=== PATIENT | male | born 1935 | race Caucasian/White ===

== ENCOUNTER 2017-07-06 14:39 | Inpatient (IN) | payer MEDICARE ==
[2017-07-06] MEDS ORDERED: Sodium Chloride 0.9% 2.5 ML Syringe FLUSH PRN (14:48)
[2017-07-06] MEDS ORDERED: Sodium Chloride 0.9% 10 ML Syringe FLUSH PRN (14:48)
--- NOTE | 2017-07-06 14:52 | EDM.PDOC ---
ED HPI GENERAL MEDICAL PROBLEM - General Chief Complaint: Neuro Symptoms/Deficits Stated Complaint: NUMBNESS AND SLURRING WORDS Time Seen by Provider: 07/06/17 14:45 - History of Present Illness INITIAL COMMENTS - FREE TEXT/NARRATIVE: HISTORY AND PHYSICAL: History of present illness: Patient is an 82-year-old male who follows with Dr. Coughlin in our family practice clinic and has a history of hypertension, hypercholesterolemia and gout who presents for evaluation for an episode of slurred speech that occurred this morning. According to the daughter at bedside. He had cataract surgery about 2 weeks ago and has been doing well from that and just recently returned about 2 months ago from [place]. According to her history the patient told her that last evening he had an episode by himself of his vision was very blurred and then got blacked and then he thought he passed out for about 30 minutes. He did not call anybody and went to bed and slept the whole night. ( the patient told nursing that he thinks that his slurred speech started last evening with this event). This morning he awoke and the daughter spoke with him at 8:45 AM and thought that his speech was slurred. According to her, he never told her that his speech was slurred. Last evening. The patient concurs that he is a smoker and he went to smoke and he was unable to take a puff on the cigarette because he felt like he could not get his mouth to function properly. The time of onset of the slurring of the speech is unknown. By the time the daughter got to the patient at 10:30 AM all of his symptoms had resolved and his speech was intact. The only thing he has persistently complained of is some dizziness. He did not fall with his events of last evening and he does not feel like he is going to fall now. He did not have a headache, neck pain, chest pain or shortness of breath, no abdominal pain, nausea or vomiting. The daughter says that she brought him because she went on the Internet and started reading about TIAs and she thought that he should come for evaluation. She says that the symptoms have not returned. Throughout the time. She has spent with him from 10: 30 AM until now. The patient says that laying in the bed. He does not feel particularly dizzy. Please note that according to the clinic note from June 16 of this year. The patient has a history of coronary artery disease and stroke with his last stroke in 2010. He has dyslipidemia and hypertension and also has a history of gout. He had carotid artery stenosis and on that visit, they renewed medications and ordered blood work to be performed. According to Dr. Coughlin's notes. He uses a walker or wheelchair due to residual effects from his stroke in 2010 and he has partial left leg paralysis. Patient is still a smoker. Please also note that the patient is telling the nurse that he still has some blurriness of vision but did not state that me Review of systems: As per history of present illness and below otherwise all systems reviewed and negative. Past medical history: As per history of present illness and as reviewed below otherwise noncontributory. Surgical history: As per history of present illness and as reviewed below otherwise noncontributory. Social history: No reported history of drug or alcohol abuse. Family history: As per history of present illness and as reviewed below otherwise noncontributory. Physical exam: General: Well-developed, well-nourished man who is nontoxic, smiling and speaking in the ED and interactive. Vital signs are noted by me HEENT: Atraumatic, normocephalic, pupils reactive, negative for conjunctival pallor or scleral icterus, mucous membranes moist, throat clear, neck supple, nontender, trachea midline. Lungs: Clear to auscultation, breath sounds equal bilaterally, chest nontender. Heart: S1S2, regular rate but slightly irregular rhythm on my evaluation, negative for clicks, rubs, or JVD. Abdomen: Soft, nondistended, nontender. Negative for masses or hepatosplenomegaly. Negative for costovertebral tenderness. Pelvis: Stable nontender. Genitourinary: Deferred. Rectal: Deferred. Extremities: Atraumatic, negative for cords or calf pain. Neurovascular unremarkable. Pedal edema Neuro: Awake, alert, oriented. Cranial nerves II through XII unremarkable. Burner Operator and dorsiflexion/plantar flexion is 5/5. The great toe. Tone is normal throughout Motor and sensory unremarkable throughout. Exam nonfocal. Skin: There is no evidence of any rashes or lesions seen. Overtly, normal turgor and no diaphoresis Diagnostics: EKG x 2, CBC CMP INR troponin TSH UA, chest x-ray CT scan of the head NIHSS Therapeutics: IV O2 monitor, aspirin NIHSS=1 and he scored this for ataxia of his left upper extremity. The patient does tell me that he has to use a walker or wheelchair due to his prior stroke but the ataxia may be new. CT scan was discussed by Dr. Mack with me. Patient is currently very stable in the ED. EKG was reviewed by Dr. aguilar instructional systems specialist and he confirms that this is A. fib. I did not do a formal consult to him. According to the clinic notes from Dr. Coughlin. The patient does not have any history of A. fib This patient is not a candidate for TPA do to the fact that the symptoms have resolved, and the timeframe is of the window. Also, there is an unknown start time of the symptoms this morning. 1550: Patient states he is no longer having any dizziness but he still having some slight blurriness of vision which he never admitted to me earlier. 1630: Case was discussed with our hospitalist Dr Castellanos who accepts patient for admission for further workup and care. Critical care time excluding procedures:31min Impression: TIA episode of expressive aphasia resolved, history of old stroke and subacute infarcts within the cerebellar hemispheres bilaterally, more on the right. New onset A. fib Definitive disposition and diagnosis as appropriate pending reevaluation and review of above. - Related Data Allergies Allergy/AdvReac Type Severity Reaction Status Date / Time No Known Allergies Allergy Verified 07/06/17 14:55 Home Meds: Home Meds Allopurinol [Zyloprim] 300 mg PO DAILY 07/06/17 [History] Aspirin 81 mg PO DAILY 07/06/17 [History] FA/Lycopene/Lut/MV,Ca,Iron,Min [Centrum] 1 tab PO DAILY 07/06/17 [History] Fexofenadine [Yohana] 60 mg PO BID PRN 07/06/17 [History] Fish Oil/[place]-3 Fatty Acids [Fish Oil 1,000 MG] 1 gm PO DAILY 07/06/17 [History ] Metoprolol Tartrate [Lopressor] 50 mg PO Q12H 07/06/17 [History] Ramipril 10 mg PO BID 07/06/17 [History] amLODIPine Besylate [Amlodipine Besylate] 10 mg PO DAILY 07/06/17 [History] atorvaSTATin [Lipitor] 40 mg PO DAILY 07/06/17 [History] ED ROS GENERAL - Review of Systems Review Of Systems: ROS reveals no pertinent complaints other than HPI. ED EXAM, GENERAL - Physical Exam Exam: See Below (See dictation) Course - Vital Signs Last Recorded V/S: Last Vital Signs Temp 36.2 C 07/06/17 14:42 Pulse 78 07/06/17 14:42 Resp 18 07/06/17 14:42 BP 158/80 H 07/06/17 14:42 Pulse Ox 94 L 07/06/17 14:47 - Orders/Labs/Meds Orders: Active Orders 24 hr Category Date Time Status Patient Status [ADT] Stat ADT 07/06/17 16:38 Ordered Cardiac Monitoring [RC] . DIRECTED Care 07/06/17 14:47 Active Communication Order [RC] STAT Care 07/06/17 14:47 Active EKG Documentation Completion [RC] STAT Care 07/06/17 14:47 Active EKG Documentation Completion [RC] STAT Care 07/06/17 16:25 Active Oxygen Therapy, ED [RC] ASDIRECTED Care 07/06/17 14:47 Active Pulse Oximetry [RC] ASDIRECTED Care 07/06/17 14:47 Active UA W/MICROSCOPIC [URIN] Stat Lab 07/06/17 14:48 Ordered Sodium Chloride 0.9% [Saline Flush] Med 07/06/17 14:48 Active 10 ml FLUSH ASDIRECTED PRN Sodium Chloride 0.9% [Saline Flush] Med 07/06/17 14:48 Active 2.5 ml FLUSH ASDIRECTED PRN Saline Lock Insert [OM.PC] Stat Oth 07/06/17 14:47 Ordered Medication Orders Sodium Chloride (Saline Flush) 10 ml FLUSH ASDIRECTED PRN PRN Reason: Keep Vein Open Sodium Chloride (Saline Flush) 2.5 ml FLUSH ASDIRECTED PRN PRN Reason: Keep Vein Open Labs: Laboratory Tests 07/06/17 07/06/17 07/06/17 Range/Units 14:58 14:58 14:58 WBC 10.24 (4.0-11.0) K/uL RBC 4.93 (4.50-5.90) M/uL Hgb 14.6 (13.0-17.0) g/dL Hct 43.1 (38.0-50.0) % MCV 87.4 (80.0-98.0) fL MCH 29.6 (27.0-32.0) pg MCHC 33.9 (31.0-37.0) g/dL RDW Std Deviation 51.5 (28.0-62.0) fl RDW Coeff of Nolan 16 H (11.0-15.0) % Plt Count 170 (150-400) K/uL MPV 9.60 (7.40-12.00) fL Neut % (Auto) 64.5 (48.0-80.0) % Lymph % (Auto) 27.5 (16.0-40.0) % [place] % (Auto) 6.7 (0.0-15.0) % Eos % (Auto) 1.0 (0.0-7.0) % Baso % (Auto) 0.3 (0.0-1.5) % Neut # (Auto) 6.6 H (1.4-5.7) K/uL Lymph # (Auto) 2.8 H (0.6-2.4) K/uL [place] # (Auto) 0.7 (0.0-0.8) K/uL Eos # (Auto) 0.1 (0.0-0.7) K/uL Baso # (Auto) 0.0 (0.0-0.1) K/uL Nucleated RBC % 0.0 /100WBC Nucleated RBCs # 0 K/uL INR 1.08 Sodium 139 (136-148) mmol/L Potassium 3.9 (3.5-5.1) mmol/L Chloride 105 (98-107) mmol/L Carbon Dioxide 24.8 (21.0-32.0) mmol/L BUN 26 H (7.0-18.0) mg/dL Creatinine 1.6 H (0.8-1.3) mg/dL Est Cr Clr Drug Dosing TNP Estimated GFR (MDRD) 41.8 ml/min Glucose 116 H (74-106) mg/dL Calcium 9.7 (8.5-10.1) mg/dL Magnesium 1.7 (1.5-2.0) mg/dL Total Bilirubin 0.6 (0.2-1.0) mg/dL AST 21 (15-37) IU/L ALT 18 (14-63) IU/L Alkaline Phosphatase 119 H (46-116) U/L Troponin I < 0.050 (0.000-0.056) ng/mL Total Protein 7.9 (6.4-8.2) g/dL Albumin 4.0 (3.4-5.0) g/dL Globulin 3.9 H (2.0-3.5) g/dL Albumin/Globulin Ratio 1.0 L (1.3-2.8) TSH 3rd Generation 2.86 (0.36-3.74) uIU/mL Meds: Medications Generic Name Dose Route Start Last Admin Trade Name Freq PRN Reason Stop Dose Admin Sodium Chloride 10 ml 07/06/17 14:48 Saline Flush FLUSH ASDIRECTED PRN Keep Vein Open Sodium Chloride 2.5 ml 07/06/17 14:48 Saline Flush FLUSH ASDIRECTED PRN Keep Vein Open Discontinued Medications Generic Name Dose Route Start Last Admin Trade Name Freq PRN Reason Stop Dose Admin Aspirin 325 mg 07/06/17 16:25 07/06/17 16:32 Aspirin PO 07/06/17 16:26 325 mg ONETIME ONE Administration Departure - Departure Time of Disposition: 16:40 Disposition: Admitted As Inpatient 68 Condition: Good Clinical Impression: TIA (transient ischemic attack) Qualifiers: Transient cerebral ischemia type: unspecified Qualified Code(s): G45.9 - Transient cerebral ischemic attack, unspecified Atrial fibrillation Qualifiers: Atrial fibrillation type: unspecified Qualified Code(s): I48.91 - Unspecified atrial fibrillation - Discharge Information Referrals: Agustin Coughlin MD [Primary Care Provider] - Forms: ED Department Discharge - My Orders Last 24 Hours: My Active Orders 07/06/17 14:47 Cardiac Monitoring [RC] . DIRECTED Communication Order [RC] STAT EKG Documentation Completion [RC] STAT Oxygen Therapy, ED [RC] ASDIRECTED Pulse Oximetry [RC] ASDIRECTED Saline Lock Insert [OM.PC] Stat 07/06/17 14:48 UA W/MICROSCOPIC [URIN] Stat Sodium Chloride 0.9% [Saline Flush] 10 ml FLUSH ASDIRECTED PRN Sodium Chloride 0.9% [Saline Flush] 2.5 ml FLUSH ASDIRECTED PRN 07/06/17 16:25 EKG Documentation Completion [RC] STAT 07/06/17 16:38 Patient Status [ADT] Stat - Assessment/Plan Last 24 Hours: My Active Orders 07/06/17 14:47 Cardiac Monitoring [RC] . DIRECTED Communication Order [RC] STAT EKG Documentation Completion [RC] STAT Oxygen Therapy, ED [RC] ASDIRECTED Pulse Oximetry [RC] ASDIRECTED Saline Lock Insert [OM.PC] Stat 07/06/17 14:48 UA W/MICROSCOPIC [URIN] Stat Sodium Chloride 0.9% [Saline Flush] 10 ml FLUSH ASDIRECTED PRN Sodium Chloride 0.9% [Saline Flush] 2.5 ml FLUSH ASDIRECTED PRN 07/06/17 16:25 EKG Documentation Completion [RC] STAT 07/06/17 16:38 Patient Status [ADT] Stat
--- NOTE | 2017-07-06 15:04 | CR ---
EXAMINATION: Portable chest radiograph. HISTORY: Shortness of breath. FINDINGS: The trachea is midline. The heart is borderline in size for technique. The cardiomediastinal silhouet te is within normal limits. No pulmonary infiltrates, effusions or pneumothorax. Chronic interstitial prominence is noted. Osseous structures appear unremarkable. IMPRESSION: No acute cardiopulmonary process.
--- NOTE | 2017-07-06 15:13 | CT ---
EXAMINATION: Non contrast CT head. Coronal and sagittal reformats. HISTORY: Pain FINDINGS: No evidence of intra or extra axial hemorrhage, mass, midline shift, hydrocephalus or edema. Moderat e periventricular white matter hypodensities are noted. Likely tiny lacunar infarct within the right periventricular distribution. There is loss of maldonado-white matter differentiation with inferior right cerebellum and likely to a lesser degree within the left cerebellum. More posteriorly within the righ t cerebellum there is a small area of encephalomalacia likely secondary to an older infarct. No abnormal intracranial calcifications are detected. Moderate vascular calcifications are noted. The re is complete opacification of the left maxillary sinus and several left ethmoid air cells extending into the left frontal sinus. The orbits and globes are symmetric. Pituitary fossa appears unremarkable. The calvarium is intact. No evidence of skull fracture. IMPRESSION: 1. Probable subacute infarcts within the cerebellar hemispheres bilaterally. 2. Old small infarct within the posterior right cerebellum. 3. Moderate small vessel ischemic changes. 4. Complete opacification of the left maxillary sinus.
[2017-07-06 16:17] LABS: CHLORIDE,CL 105 mmol/L (98-107); SODIUM,NA 139 mmol/L (136-148)
[2017-07-06] MEDS ORDERED: Aspirin 325 MG Tab PO ONE (16:25)
[2017-07-06] MEDS ORDERED: Ondansetron 4 MG Tab.DIS PO PRN (17:32)
[2017-07-06] MEDS ORDERED: Acetaminophen 325 MG Tab PO PRN (17:32)
--- NOTE | 2017-07-06 17:44 | PCM.HP ---
<Van Stafford - Last Filed: 07/06/17 17:49> H&P History of Present Illness - General Date of Service: 07/06/17 Admit Problem/Dx: Admission Diagnosis/Problem Admission Diagnosis/Problem CVA, Cerebrovascular accident Source of Information: Patient, Family History Limitations: Reports: No Limitations - History of Present Illness Initial Comments - Free Text/Narative: 82-year-old male with a past medical history of hypertension, dyslipidemia, gout , coronary artery disease with a stroke in 2010 with resultant left-sided weakness, is being admitted after presenting to the ER with his daughter with expressive aphasia and a probable TIA. The patient notes that he had slurred speech last night and this morning and his daughter noticed this when speaking on the phone with him this morning. Patient also states that he had blurry vision last night and believes he may have blacked out for 30 minutes while sitting down. He did not hit his head. The daughter notes that when she went over to his house this morning that she noted his speech was slurred. She states that from approximately 10:30 on this morning that his speech has returned to normal and that he is pretty much back to his baseline. The patient reports intermittent dizziness throughout the day when chatting with him in the ER he denies any dizziness. Patient does take a daily aspirin. He does require the use of a walker when ambulating secondary to the left-sided paralysis from his prior stroke. He does take multiple medications for hypertension and he is also taking Lipitor for his dyslipidemia. Patient does have a long history of tobacco use and when he went to smoke a cigarette this morning he noted that he was unable to get his mouth around the cigarette. He denies any difficulty swallowing and he currently denies any headaches, chest pain, palpitations, shortness of breath, wheezing, cough, abdominal pain, nausea, vomiting, constipation, diarrhea, peripheral edema. ER course: Patient was given a 325 mg aspirin. CBC was unremarkable. CMP was unremarkable apart from an elevated BUN and creatinine of 26 and 1.6 respectively. GFR is 42. ALP is elevated at 119. Initial troponin was negative. TSH was negative. Head CT shows subacute infarct within the cerebellum bilaterally. Chest x-ray was unremarkable. EKG was also obtained and interpreted by her laser beam cutter, Dr. Gomez, who stated that the patient was in A. fib. Patient has no prior diagnosis of A. fib and has not had any palpitations or chest pain recently. - Related Data Allergies/Adverse Reactions: Allergies Allergy/AdvReac Type Severity Reaction Status Date / Time No Known Allergies Allergy Verified 07/06/17 14:55 Home Medications: Home Meds Allopurinol [Zyloprim] 300 mg PO DAILY 07/06/17 [History] Aspirin 81 mg PO DAILY 07/06/17 [History] FA/Lycopene/Lut/MV,Ca,Iron,Min [Centrum] 1 tab PO DAILY 07/06/17 [History] Fexofenadine [Yohana] 60 mg PO BID PRN 07/06/17 [History] Fish Oil/[place]-3 Fatty Acids [Fish Oil 1,000 MG] 1 gm PO DAILY 07/06/17 [History ] Metoprolol Tartrate [Lopressor] 50 mg PO Q12H 07/06/17 [History] Ramipril 10 mg PO BID 07/06/17 [History] amLODIPine Besylate [Amlodipine Besylate] 10 mg PO DAILY 07/06/17 [History] atorvaSTATin [Lipitor] 40 mg PO DAILY 07/06/17 [History] Past Medical History Cardiovascular History: Reports: High Cholesterol, Hypertension Neurological History: Reports: CVA, TIA - Past Surgical History HEENT Surgical History: Reports: Cataract Surgery Social & Family History - Family History Family Medical History: Unobtainable - Tobacco Use Smoking Status *Q: Current Every Day Smoker Years of Tobacco use: 60 Packs/Tins Daily: 1 - Caffeine Use Caffeine Use: Reports: Coffee - Recreational Drug Use Recreational Drug Use: No H&P Review of Systems - Review of Systems: Review Of Systems: See Below General: Reports: No Symptoms HEENT: Reports: No Symptoms Pulmonary: Reports: No Symptoms Cardiovascular: Reports: No Symptoms Gastrointestinal: Reports: No Symptoms Genitourinary: Reports: No Symptoms Musculoskeletal: Reports: No Symptoms Skin: Reports: No Symptoms Psychiatric: Reports: No Symptoms Neurological: Reports: Dizziness, Syncope, Trouble Speaking, Weakness (Left upper and lower extremity weakness) Hematologic/Lymphatic: Reports: No Symptoms Immunologic: Reports: No Symptoms Exam - Exam Exam: See Below - Vital Signs Vital Signs: Last Vital Signs Temp 98.0 F 07/06/17 17:20 Pulse 73 07/06/17 17:20 Resp 20 07/06/17 17:20 BP 127/84 07/06/17 17:20 Pulse Ox 91 L 07/06/17 17:20 - Exam General: Alert, Oriented, Cooperative HEENT: Conjunctiva Clear, EOMI, Hearing Intact, Mucosa Moist & [place], Nares Patent, Normal Nasal Septum, Posterior Pharynx Clear, PERRLA Neck: Supple, Trachea Midline, 2 Lungs: Clear to Auscultation, Normal Respiratory Effort Cardiovascular: Regular Rate, Irregular Rhythm GI/Abdominal Exam: Normal Bowel Sounds, Soft, Non-Tender, No Organomegaly, No Distention, No Abnormal Bruit, No Mass, Pelvis Stable Extremities: Normal Inspection, Normal Range of Motion, Non-Tender, No Pedal Edema, Normal Capillary Refill Peripheral Pulses: 2+: Radial (L), Radial (R), Posterior Tibial (L), Posterior Tibial (R) Skin: Warm, Dry, Intact Neurological: Cranial Nerves Intact Neuro Extensive - Mental Status: Alert, Oriented x3, Normal Mood/Affect, Normal Cognition Neuro Extensive - Motor, Sensory, Reflexes: CN II-XII Intact, Other (Patient has ataxia when doing [id number] with the left upper extremity. Also difficult for him to do [id number] using the left lower extremity. Strength is 4 out of 5 in the upper and lower extremities bilaterally on the left side.) Psychiatric: Alert, Normal Affect, Normal Mood - Patient Data Lab Results Last 24 hrs: Laboratory Results - last 24 hr 07/06/17 07/06/17 07/06/17 Range/Units 14:58 14:58 14:58 WBC 10.24 (4.0-11.0) K/uL RBC 4.93 (4.50-5.90) M/uL Hgb 14.6 (13.0-17.0) g/dL Hct 43.1 (38.0-50.0) % MCV 87.4 (80.0-98.0) fL MCH 29.6 (27.0-32.0) pg MCHC 33.9 (31.0-37.0) g/dL RDW Std Deviation 51.5 (28.0-62.0) fl RDW Coeff of Nolan 16 H (11.0-15.0) % Plt Count 170 (150-400) K/uL MPV 9.60 (7.40-12.00) fL Neut % (Auto) 64.5 (48.0-80.0) % Lymph % (Auto) 27.5 (16.0-40.0) % Republic % (Auto) 6.7 (0.0-15.0) % Eos % (Auto) 1.0 (0.0-7.0) % Baso % (Auto) 0.3 (0.0-1.5) % Neut # (Auto) 6.6 H (1.4-5.7) K/uL Lymph # (Auto) 2.8 H (0.6-2.4) K/uL Republic # (Auto) 0.7 (0.0-0.8) K/uL Eos # (Auto) 0.1 (0.0-0.7) K/uL Baso # (Auto) 0.0 (0.0-0.1) K/uL Nucleated RBC % 0.0 /100WBC Nucleated RBCs # 0 K/uL INR 1.08 Sodium 139 (136-148) mmol/L Potassium 3.9 (3.5-5.1) mmol/L Chloride 105 (98-107) mmol/L Carbon Dioxide 24.8 (21.0-32.0) mmol/L BUN 26 H (7.0-18.0) mg/dL Creatinine 1.6 H (0.8-1.3) mg/dL Est Cr Clr Drug Dosing TNP Estimated GFR (MDRD) 41.8 ml/min Glucose 116 H (74-106) mg/dL Calcium 9.7 (8.5-10.1) mg/dL Magnesium 1.7 (1.5-2.0) mg/dL Total Bilirubin 0.6 (0.2-1.0) mg/dL AST 21 (15-37) IU/L ALT 18 (14-63) IU/L Alkaline Phosphatase 119 H (46-116) U/L Troponin I < 0.050 (0.000-0.056) ng/mL Total Protein 7.9 (6.4-8.2) g/dL Albumin 4.0 (3.4-5.0) g/dL Globulin 3.9 H (2.0-3.5) g/dL Albumin/Globulin Ratio 1.0 L (1.3-2.8) TSH 3rd Generation 2.86 (0.36-3.74) uIU/mL Result Diagrams: 07/06/17 14:58 07/06/17 14:58 - Problem List (1) Atrial fibrillation SNOMED Code(s): 85658507 ICD Code: I48.91 - UNSPECIFIED ATRIAL FIBRILLATION Status: Acute Current Visit: Yes Qualifiers: Atrial fibrillation type: unspecified Qualified Code(s): I48.91 - Unspecified atrial fibrillation (2) TIA (transient ischemic attack) SNOMED Code(s): 495590536 ICD Code: G45.9 - TRANSIENT CEREBRAL ISCHEMIC ATTACK, UNSPECIFIED Status: Acute Current Visit: Yes Qualifiers: Transient cerebral ischemia type: unspecified Qualified Code(s): G45.9 - Transient cerebral ischemic attack, unspecified Problem List Initiated/Reviewed/Updated: Yes Orders Last 24hrs: Active Orders 24 hr Category Date Time Status Patient Status [ADT] Stat ADT 07/06/17 16:40 Active Cardiac Monitoring [RC] Q8H Care 07/06/17 14:47 Active Communication Order [RC] STAT Care 07/06/17 14:47 Active EKG Documentation Completion [RC] STAT Care 07/06/17 14:47 Active EKG Documentation Completion [RC] STAT Care 07/06/17 16:25 Active Height and Weight [RC] DAILY Care 07/06/17 17:32 Ordered Intake and Output [RC] QSHIFT Care 07/06/17 17:33 Ordered Neuro Check [RC] BID Care 07/06/17 17:41 Ordered Notify Provider Vital Signs [RC] ASDIRECTED Care 07/06/17 17:34 Ordered Nursing Bedside Swallow Screen [RC] ASDIRECTED Care 07/06/17 17:32 Ordered Oxygen Therapy [RC] PRN Care 07/06/17 17:33 Ordered Oxygen Therapy, ED [RC] ASDIRECTED Care 07/06/17 14:47 Active Pulse Oximetry [RC] ASDIRECTED Care 07/06/17 14:47 Active Pulse Oximetry [RC] PRN Care 07/06/17 17:33 Ordered Telemetry Monitoring [Cardiac Monitoring] [RC] . Care 07/06/17 17:41 Ordered DIRECTED Up With Assistance [RC] ASDIRECTED Care 07/06/17 17:32 Ordered VTE/DVT Education [RC] PER UNIT ROUTINE Care 07/06/17 17:33 Ordered Vital Signs [RC] Q4H Care 07/06/17 17:33 Ordered PT Evaluation and Treatment [CONS] Routine Cons 07/06/17 17:32 Ordered Heart Healthy Diet [DIET] Diet 07/06/17 Breakfast Ordered Ang Head wo Cont [MR] Stat Exams 07/06/17 17:32 Ordered Ang Neck wo Cont [MR] Stat Exams 07/06/17 17:32 Ordered Brain w wo Cont [MR] Stat Exams 07/06/17 17:32 Ordered CV Carotid Duplex Comp [US] Stat Exams 07/06/17 17:32 Ordered Echo 2D wo Cont [US] Stat Exams 07/06/17 17:32 Ordered BASIC METABOLIC PANEL,BMP [CHEM] AM Lab 07/07/17 05:11 Ordered BASIC METABOLIC PANEL,BMP [CHEM] AM Lab 07/08/17 05:11 Ordered BASIC METABOLIC PANEL,BMP [CHEM] AM Lab 07/09/17 05:11 Ordered CBC WITH AUTO DIFF [HEME] AM Lab 07/07/17 05:11 Ordered CBC WITH AUTO DIFF [HEME] AM Lab 07/08/17 05:11 Ordered CBC WITH AUTO DIFF [HEME] AM Lab 07/09/17 05:11 Ordered GLYCOSYLATED HEMOGLOBIN,HGBA1C [CHEM] Stat Lab 07/06/17 17:32 Ordered LIPID PANEL [CHEM] AM Lab 07/07/17 05:11 Ordered TROPONIN I [CHEM] Q6H Lab 07/06/17 21:00 Ordered TROPONIN I [CHEM] Q6H Lab 07/07/17 03:00 Ordered UA W/MICROSCOPIC [URIN] Stat Lab 07/06/17 14:48 Ordered Acetaminophen [Tylenol] Med 07/06/17 17:32 Ordered 650 mg PO Q4H PRN Allopurinol [Zyloprim] Med 07/07/17 09:00 Ordered 300 mg PO DAILY Aspirin Med 07/07/17 09:00 Ordered 81 mg PO DAILY FA/Lycopene/Lut/MV,Ca,Iron,Min Med 07/07/17 09:00 Ordered 1 tab PO DAILY Fexofenadine [Yohana] Med 07/06/17 17:41 Ordered 60 mg PO BID PRN Fish Oil/[place]-3 Fatty Acids [Fish Oil] Med 07/07/17 09:00 Ordered 1 gm PO DAILY Metoprolol Tartrate [Lopressor] Med 07/06/17 17:45 Ordered 50 mg PO Q12H Ondansetron [Zofran ODT] [facility] 07/06/17 17:32 Ordered 4 mg PO Q4H PRN Sodium Chloride 0.9% [Saline Flush] Med 07/06/17 14:48 Active 10 ml FLUSH ASDIRECTED PRN Sodium Chloride 0.9% [Saline Flush] Med 07/06/17 14:48 Active 2.5 ml FLUSH ASDIRECTED PRN atorvaSTATin [Lipitor] [facility] 07/07/17 09:00 Ordered 40 mg PO DAILY Saline Lock Insert [OM.PC] Stat Ot 07/06/17 14:47 Ordered Sequential Compression Device [OM.PC] Per Unit Routine Ot 07/06/17 17:34 Ordered Medication Orders Acetaminophen (Tylenol) 650 mg PO Q4H PRN PRN Reason: Pain (Mild 1-3)/fever Allopurinol (Zyloprim) 300 mg PO DAILY [facility] Aspirin (Aspirin) 81 mg PO DAILY [facility] Fexofenadine HCl (Yohana) 60 mg PO BID PRN PRN Reason: Allergies Fish Oil (Fish Oil) 1 gm PO DAILY [facility] Metoprolol Tartrate (Lopressor) 50 mg PO Q12H [facility] Non-Formulary Medication (Atorvastatin [Lipitor]) 40 mg PO DAILY [facility] Non-Formulary Medication (Fa/Lycopene/Lut/Mv,Ca,Iron,Min) 1 tab PO DAILY [facility] Ondansetron HCl (Zofran Odt) 4 mg PO Q4H PRN PRN Reason: nausea, able to take PO Sodium Chloride (Saline Flush) 10 ml FLUSH ASDIRECTED PRN PRN Reason: Keep Vein Open Sodium Chloride (Saline Flush) 2.5 ml FLUSH ASDIRECTED PRN PRN Reason: Keep Vein Open Assessment/Plan Comment:: 82-year-old male being admitted with TIA and new onset atrial fibrillation. #1. TIA: -Patient was given a 325 mg tablet of aspirin in the ER. He will resume his daily baby aspirin tomorrow. -MRA of the head and neck, echocardiogram and MRI of the brain are pending. Hemoglobin A1c is pending. -Neuro checks twice a day. Patient passed bedside swallow evaluation by nursing. -Lipid panel is pending in the morning. -Initial troponin was negative. We'll trend troponins. #2. New onset atrial fibrillation that is rate controlled: -Patient will be placed on telemetry. -Patient's home medication of metoprolol tartrate 50 mg twice a day will be resumed as this is most likely helping with his rate control. -Mason VasC score 6. Patient will need to be anticoagulated. We will discuss this with the neurologist in the morning. #3. Hypertension: -Ramipril and Norvasc will be held to allow for permissive hypertension. Blood pressure in the ER was 158/80. -Metoprolol will be continued for both his hypertension and rate control of his new onset atrial fibrillation. #4. Acute kidney injury: -Patient will be given IV fluids. -We will hold his MARÍA inhibitor to see if this helps. -BMP pending in the morning. #5. Tobacco use: -Patient declines a nicotine patch currently. DVT prophylaxis: SCDs. Disposition: 1-2 days pending improvement. <Nico Castellanos - Last Filed: 07/06/17 19:49> H&P History of Present Illness - General Admit Problem/Dx: Admission Diagnosis/Problem Admission Diagnosis/Problem CVA, Cerebrovascular accident Exam - Vital Signs Vital Signs: Last Vital Signs Temp 98.0 F 07/06/17 17:20 Pulse 89 07/06/17 18:20 Resp 20 07/06/17 17:20 BP 127/84 07/06/17 18:20 Pulse Ox 91 L 07/06/17 17:33 - Patient Data Lab Results Last 24 hrs: Laboratory Results - last 24 hr 07/06/17 07/06/17 07/06/17 Range/Units 14:58 14:58 14:58 WBC 10.24 (4.0-11.0) K/uL RBC 4.93 (4.50-5.90) M/uL Hgb 14.6 (13.0-17.0) g/dL Hct 43.1 (38.0-50.0) % MCV 87.4 (80.0-98.0) fL MCH 29.6 (27.0-32.0) pg MCHC 33.9 (31.0-37.0) g/dL RDW Std Deviation 51.5 (28.0-62.0) fl RDW Coeff of Nolan 16 H (11.0-15.0) % Plt Count 170 (150-400) K/uL MPV 9.60 (7.40-12.00) fL Neut % (Auto) 64.5 (48.0-80.0) % Lymph % (Auto) 27.5 (16.0-40.0) % Republic % (Auto) 6.7 (0.0-15.0) % Eos % (Auto) 1.0 (0.0-7.0) % Baso % (Auto) 0.3 (0.0-1.5) % Neut # (Auto) 6.6 H (1.4-5.7) K/uL Lymph # (Auto) 2.8 H (0.6-2.4) K/uL [place] # (Auto) 0.7 (0.0-0.8) K/uL Eos # (Auto) 0.1 (0.0-0.7) K/uL Baso # (Auto) 0.0 (0.0-0.1) K/uL Nucleated RBC % 0.0 /100WBC Nucleated RBCs # 0 K/uL INR 1.08 Sodium 139 (136-148) mmol/L Potassium 3.9 (3.5-5.1) mmol/L Chloride 105 (98-107) mmol/L Carbon Dioxide 24.8 (21.0-32.0) mmol/L BUN 26 H (7.0-18.0) mg/dL Creatinine 1.6 H (0.8-1.3) mg/dL Est Cr Clr Drug Dosing TNP Estimated GFR (MDRD) 41.8 ml/min Glucose 116 H (74-106) mg/dL Hemoglobin A1c (4.5-6.2) % Calcium 9.7 (8.5-10.1) mg/dL Magnesium 1.7 (1.5-2.0) mg/dL Total Bilirubin 0.6 (0.2-1.0) mg/dL AST 21 (15-37) IU/L ALT 18 (14-63) IU/L Alkaline Phosphatase 119 H (46-116) U/L Troponin I < 0.050 (0.000-0.056) ng/mL Total Protein 7.9 (6.4-8.2) g/dL Albumin 4.0 (3.4-5.0) g/dL Globulin 3.9 H (2.0-3.5) g/dL Albumin/Globulin Ratio 1.0 L (1.3-2.8) TSH 3rd Generation 2.86 (0.36-3.74) uIU/mL 07/06/17 Range/Units 17:51 WBC (4.0-11.0) K/uL RBC (4.50-5.90) M/uL Hgb (13.0-17.0) g/dL Hct (38.0-50.0) % MCV (80.0-98.0) fL MCH (27.0-32.0) pg MCHC (31.0-37.0) g/dL RDW Std Deviation (28.0-62.0) fl RDW Coeff of Nolan (11.0-15.0) % Plt Count (150-400) K/uL MPV (7.40-12.00) fL Neut % (Auto) (48.0-80.0) % Lymph % (Auto) (16.0-40.0) % Republic % (Auto) (0.0-15.0) % Eos % (Auto) (0.0-7.0) % Baso % (Auto) (0.0-1.5) % Neut # (Auto) (1.4-5.7) K/uL Lymph # (Auto) (0.6-2.4) K/uL [place] # (Auto) (0.0-0.8) K/uL Eos # (Auto) (0.0-0.7) K/uL Baso # (Auto) (0.0-0.1) K/uL Nucleated RBC % /100WBC Nucleated RBCs # K/uL INR Sodium (136-148) mmol/L Potassium (3.5-5.1) mmol/L Chloride (98-107) mmol/L Carbon Dioxide (21.0-32.0) mmol/L BUN (7.0-18.0) mg/dL Creatinine (0.8-1.3) mg/dL Est Cr Clr Drug Dosing Estimated GFR (MDRD) ml/min Glucose (74-106) mg/dL Hemoglobin A1c 6.5 H (4.5-6.2) % Calcium (8.5-10.1) mg/dL Magnesium (1.5-2.0) mg/dL Total Bilirubin (0.2-1.0) mg/dL AST (15-37) IU/L ALT (14-63) IU/L Alkaline Phosphatase (46-116) U/L Troponin I (0.000-0.056) ng/mL Total Protein (6.4-8.2) g/dL Albumin (3.4-5.0) g/dL Globulin (2.0-3.5) g/dL Albumin/Globulin Ratio (1.3-2.8) TSH 3rd Generation (0.36-3.74) uIU/mL Result Diagrams: 07/06/17 14:58 07/06/17 14:58 Orders Last 24hrs: Active Orders 24 hr Category Date Time Status Patient Status [ADT] Stat ADT 07/06/17 16:40 Active Blood Glucose Check, Bedside [RC] TIDAC Care 07/06/17 18:16 Active Cardiac Monitoring [RC] Q8H Care 07/06/17 14:47 Active Communication Order [RC] ROUTINE Care 07/06/17 19:43 Ordered Communication Order [RC] ROUTINE Care 07/06/17 19:45 Ordered Communication Order [RC] STAT Care 07/06/17 14:47 Active EKG Documentation Completion [RC] STAT Care 07/06/17 14:47 Active EKG Documentation Completion [RC] STAT Care 07/06/17 16:25 Active Height and Weight [RC] DAILY Care 07/06/17 17:32 Active Intake and Output [RC] Q12H Care 07/06/17 17:33 Active Neuro Check [RC] BID Care 07/06/17 17:41 Inactive Neuro Check [RC] Q2HR Care 07/06/17 18:38 Active Notify Provider Vital Signs [RC] ASDIRECTED Care 07/06/17 17:34 Active Nursing Bedside Swallow Screen [RC] ASDIRECTED Care 07/06/17 17:32 Active Oxygen Therapy [RC] PRN Care 07/06/17 17:33 Active Oxygen Therapy, ED [RC] ASDIRECTED Care 07/06/17 14:47 Active Pulse Oximetry [RC] ASDIRECTED Care 07/06/17 14:47 Active Pulse Oximetry [RC] PRN Care 07/06/17 17:33 Active Telemetry Monitoring [Cardiac Monitoring] [RC] . Care 07/06/17 17:41 Active DIRECTED Up With Assistance [RC] ASDIRECTED Care 07/06/17 17:32 Active VTE/DVT Education [RC] PER UNIT ROUTINE Care 07/06/17 17:33 Active Vital Signs [RC] Q4H Care 07/06/17 17:33 Active PT Evaluation and Treatment [CONS] Routine Cons 07/06/17 17:32 Active Heart Healthy Diet [DIET] Diet 07/06/17 Breakfast Active Ang Head wo Cont [MR] Stat Exams 07/06/17 17:32 Ordered Ang Neck wo Cont [MR] Stat Exams 07/06/17 17:32 Ordered Brain w wo Cont [MR] Stat Exams 07/06/17 17:32 Ordered CV Carotid Duplex Comp [US] Stat Exams 07/06/17 17:32 Ordered Echo 2D wo Cont [US] Stat Exams 07/06/17 17:32 Ordered B-TYPE NATRIURETIC PEPTIDE,BNP [CHEM] Routine Lab 07/06/17 17:51 Received BASIC METABOLIC PANEL,BMP [CHEM] AM Lab 07/07/17 05:11 Ordered BASIC METABOLIC PANEL,BMP [CHEM] AM Lab 07/08/17 05:11 Ordered BASIC METABOLIC PANEL,BMP [CHEM] AM Lab 07/09/17 05:11 Ordered CBC WITH AUTO DIFF [HEME] AM Lab 07/07/17 05:11 Ordered CBC WITH AUTO DIFF [HEME] AM Lab 07/08/17 05:11 Ordered CBC WITH AUTO DIFF [HEME] AM Lab 07/09/17 05:11 Ordered INR,PT,PROTHROMBIN TIME [COAG] Routine Lab 07/06/17 19:45 Ordered LIPID PANEL [CHEM] AM Lab 07/07/17 05:11 Ordered TROPONIN I [CHEM] Q6H Lab 07/06/17 21:00 Ordered TROPONIN I [CHEM] Q6H Lab 07/07/17 03:00 Ordered UA W/MICROSCOPIC [URIN] Stat Lab 07/06/17 14:48 Ordered Acetaminophen [Tylenol] Med 07/06/17 17:32 Active 650 mg PO Q4H PRN Allopurinol [Zyloprim] Med 07/07/17 09:00 Active 300 mg PO DAILY Amoxicillin/Clavulanate K [Augmentin 875 MG/125 MG] Med 07/06/17 21:00 Active 1 tab PO Q12HR Aspirin Med 07/07/17 09:00 Active 81 mg PO DAILY Cetirizine [ZyrTEC] Med 07/06/17 19:45 Active 10 mg PO DAILY FA/Lycopene/Lut/MV,Ca,Iron,Min Med 07/07/17 09:00 Active 1 tab PO DAILY Fexofenadine [Yohana] Med 07/06/17 17:41 Active 60 mg PO BID PRN Fish Oil/[place]-3 Fatty Acids [Fish Oil] Med 07/07/17 09:00 Active 1 gm PO DAILY Fluticasone Propionate [Flonase] Med 07/06/17 21:00 Active 0 gm NASBOTH BID Insulin Aspart [NovoLOG] Med 07/07/17 07:30 Active See Protocol SUBCUT TIDAC Metoprolol Tartrate [Lopressor] Med 07/06/17 17:45 Active 50 mg PO Q12H Ondansetron [Zofran ODT] Med 07/06/17 17:32 Active 4 mg PO Q4H PRN Sodium Chloride 0.9% [Saline Flush] Med 07/06/17 14:48 Active 10 ml FLUSH ASDIRECTED PRN Sodium Chloride 0.9% [Saline Flush] Med 07/06/17 14:48 Active 2.5 ml FLUSH ASDIRECTED PRN Warfarin [Coumadin] Med 07/06/17 19:45 Ordered 5 mg PO .Pharmacy To Dose atorvaSTATin [Lipitor] Med 07/07/17 09:00 Active 40 mg PO DAILY methylPREDNISolone Sod Succ [Solu-MEDROL] Med 07/06/17 20:00 Active 40 mg IVPUSH Q12H Saline Lock Insert [OM.PC] Stat Oth 07/06/17 14:47 Ordered Sequential Compression Device [OM.PC] Per Unit Routine Oth 07/06/17 17:34 Ordered Medication Orders Acetaminophen (Tylenol) 650 mg PO Q4H PRN PRN Reason: Pain (Mild 1-3)/fever Allopurinol (Zyloprim) 300 mg PO DAILY [facility] Amoxicillin/Clavulanate Potassium (Augmentin 875 Mg/125 Mg) 1 tab PO Q12HR [facility] Aspirin (Aspirin) 81 mg PO DAILY [facility] Cetirizine HCl (Zyrtec) 10 mg PO DAILY [facility] Fexofenadine HCl (Yohana) 60 mg PO BID PRN PRN Reason: Allergies Fish Oil (Fish Oil) 1 gm PO DAILY [facility] Fluticasone Propionate (Flonase) 0 gm NASBOTH BID [facility] Insulin Aspart (Novolog) 0 unit SUBCUT TIDAC [facility]; Protocol Methylprednisolone Sodium Succinate (Solu-Medrol) 40 mg IVPUSH Q12H [facility] Metoprolol Tartrate (Lopressor) 50 mg PO Q12H [facility] Last Admin: 07/06/17 18:20 Dose: 50 mg Non-Formulary Medication (Atorvastatin [Lipitor]) 40 mg PO DAILY [facility] Non-Formulary Medication (Fa/Lycopene/Lut/Mv,Ca,Iron,Min) 1 tab PO DAILY [facility] Ondansetron HCl (Zofran Odt) 4 mg PO Q4H PRN PRN Reason: nausea, able to take PO Sodium Chloride (Saline Flush) 10 ml FLUSH ASDIRECTED PRN PRN Reason: Keep Vein Open Sodium Chloride (Saline Flush) 2.5 ml FLUSH ASDIRECTED PRN PRN Reason: Keep Vein Open Warfarin Sodium (Coumadin) 5 mg PO .Pharmacy To Dose [facility] Assessment/Plan Comment:: sinusitis chronic : start cetirizine 10 mg po daily , fluticasone nasal spray solumedrol 40 mg iv q 12 h augmentin 1 tab po BID a fib chads score 5 : heparin drip , coumadine pop TIA neurocheck q 2h patient seen and examined , agree with resident . Consider the above adjustments.
[2017-07-06] MEDS ORDERED: Lactated Ringers 1,000 ML IV ONE (18:08)
[2017-07-06] MEDS ORDERED: Lactated Ringers 1,000 ML IV SCH (18:15)
[2017-07-06] MEDS: Metoprolol Tartrate 50 MG Tab PO SCH (18:20)
[2017-07-06] MEDS ORDERED: Warfarin 5 MG Tab PO SCH (19:45)
[2017-07-06] MEDS ORDERED: Cetirizine 10 MG Tab PO SCH (19:45)
[2017-07-06] MEDS: Amoxicillin/Clavulanate K 875-125 MG Tab PO SCH (20:13)
[2017-07-06] MEDS: methylPREDNISolone Sodium Succinate 40 MG/1 ML SDV IVPUSH SCH (20:14)
[2017-07-06] MEDS ORDERED: Warfarin Sliding Scale PO SCH (20:15)
[2017-07-06] MEDS: Fluticasone Propionate Nasal Spray 16 GM Bottle NASBOTH SCH (20:17)
[2017-07-06] MEDS ORDERED: Warfarin 5 MG Tab PO ONE (21:00)
[2017-07-06] MEDS ORDERED: Heparin Sod,Pork In 0.45% Nacl 25,000 UNIT/500 ML IV.SOLN IV SCH (21:15)
[2017-07-06] MEDS ORDERED: Heparin Sodium 5,000 Units/ML Vial IVPUSH ONE (21:15)
[2017-07-07] MEDS: Metoprolol Tartrate 50 MG Tab PO SCH ×2 (05:26→17:00)
[2017-07-07] MEDS: Insulin Aspart 100 Units/ML 3 ML Pen SUBCUT SCH ×3 (06:57→17:59)
[2017-07-07] MEDS ORDERED: MV CA IRON MIN PO SCH (09:00)
[2017-07-07] MEDS ORDERED: [UNRECOGNIZED DRUG - OTHER] PO SCH (09:00)
[2017-07-07] MEDS ORDERED: Non-Formulary Medication 1 Each (Atorvastatin [Lipitor] 40 MG) PO SCH (09:00)
[2017-07-07] MEDS ORDERED: LYCOPENE PO SCH (09:00)
[2017-07-07] MEDS ORDERED: LUT PO SCH (09:00)
[2017-07-07] MEDS: Fish Oil/Omega-3 Fatty Acids 1 Gm Cap PO SCH (09:35)
[2017-07-07] MEDS: Amoxicillin/Clavulanate K 875-125 MG Tab PO SCH ×2 (09:35→20:04)
[2017-07-07] MEDS: Fluticasone Propionate Nasal Spray 16 GM Bottle NASBOTH SCH ×2 (09:35→20:04)
[2017-07-07] MEDS: Allopurinol 300 MG Tab PO SCH (09:35)
[2017-07-07] MEDS: Aspirin 81 MG Tab.Chew PO SCH (09:35)
[2017-07-07] MEDS: methylPREDNISolone Sodium Succinate 40 MG/1 ML SDV IVPUSH SCH ×2 (09:35→20:04)
--- NOTE | 2017-07-07 10:00 | US ---
EXAMINATION: Carotid US with maldonado scale and duplex imaging. HISTORY: TIA FINDINGS: Ultrasound examination of bilateral cervical carotid arteries was performed using maldonado scale and dupl ex imaging. Moderate scattered atheromatous changes noted within the carotid arteries bilaterally. Antegrade flow noted within the right vertebral artery. The left vertebral artery is not identified. These are the peak velocities in cm per second (systole), right and left respectively, by a comma: CCA (common carotid artery) - 46, 82 ICA (internal carotid artery) - 44, 147 ECA (External carotid artery) - 153, 77 ICA/CCA systolic ratio Right - 1.0 Left - 1.8 IMPRESSION: 1. There is less than 50% stenosis within the right internal carotid artery. 2. There is between 50 and 69% stenosis within the left internal carotid artery. 3. The left vertebral artery is not identified.
[2017-07-07] MEDS: atorvaSTATin 40 MG Tab PO SCH (10:22)
--- NOTE | 2017-07-07 10:31 | PCM.PN ---
<Van Stafford - Last Filed: 07/07/17 10:31> - General Info Date of Service: 07/07/17 Admission Dx/Problem (Free Text): Admission Diagnosis/Problem Admission Diagnosis/Problem CVA, Cerebrovascular accident Subjective Update: Patient is doing well and has no acute concerns this morning. He continues to have some dizziness when sitting at the edge of the bed. He states this is more a feeling of unsteadiness than the room spinning. He is tolerating oral intake and voiding appropriately. He denies any chest pain or palpitations. He denies any new neurological deficits. He states that he is essentially back to his baseline. Functional Status: Reports: Pain Controlled, Tolerating Diet, Ambulating, Urinating - Review of Systems General: Reports: No Symptoms HEENT: Reports: No Symptoms Pulmonary: Reports: No Symptoms Cardiovascular: Reports: No Symptoms Gastrointestinal: Reports: No Symptoms Genitourinary: Reports: No Symptoms Musculoskeletal: Reports: No Symptoms Skin: Reports: No Symptoms Neurological: Reports: Dizziness, Weakness (Residual left-sided weakness secondary to a prior stroke) Psychiatric: Reports: No Symptoms - Patient Data Vitals - Most Recent: Last Vital Signs Temp 98.1 F 07/07/17 08:00 Pulse 67 07/07/17 08:00 Resp 18 07/07/17 08:00 BP 139/70 07/07/17 08:00 Pulse Ox 94 L 07/07/17 08:00 Weight - Most Recent: 173 lb 1.006 oz I&O - Last 24 Hours: Intake & Output 07/06/17 07/07/17 07/07/17 22:59 06:59 14:59 Intake Total 1000 317 Output Total 350 Balance 1000 -33 Lab Results Last 24 Hours: Laboratory Results - last 24 hr 07/06/17 07/06/17 07/06/17 Range/Units 14:58 14:58 14:58 WBC 10.24 (4.0-11.0) K/uL RBC 4.93 (4.50-5.90) M/uL Hgb 14.6 (13.0-17.0) g/dL Hct 43.1 (38.0-50.0) % MCV 87.4 (80.0-98.0) fL MCH 29.6 (27.0-32.0) pg MCHC 33.9 (31.0-37.0) g/dL RDW Std Deviation 51.5 (28.0-62.0) fl RDW Coeff of Nolan 16 H (11.0-15.0) % Plt Count 170 (150-400) K/uL MPV 9.60 (7.40-12.00) fL Neut % (Auto) 64.5 (48.0-80.0) % Lymph % (Auto) 27.5 (16.0-40.0) % Bonner % (Auto) 6.7 (0.0-15.0) % Eos % (Auto) 1.0 (0.0-7.0) % Baso % (Auto) 0.3 (0.0-1.5) % Neut # (Auto) 6.6 H (1.4-5.7) K/uL Lymph # (Auto) 2.8 H (0.6-2.4) K/uL Bonner # (Auto) 0.7 (0.0-0.8) K/uL Eos # (Auto) 0.1 (0.0-0.7) K/uL Baso # (Auto) 0.0 (0.0-0.1) K/uL Nucleated RBC % 0.0 /100WBC Nucleated RBCs # 0 K/uL INR 1.08 APTT (18.6-31.3) SEC Sodium 139 (136-148) mmol/L Potassium 3.9 (3.5-5.1) mmol/L Chloride 105 (98-107) mmol/L Carbon Dioxide 24.8 (21.0-32.0) mmol/L BUN 26 H (7.0-18.0) mg/dL Creatinine 1.6 H (0.8-1.3) mg/dL Est Cr Clr Drug Dosing TNP Estimated GFR (MDRD) 41.8 ml/min Glucose 116 H (74-106) mg/dL POC Glucose (60-110) mg/dL Hemoglobin A1c (4.5-6.2) % Calcium 9.7 (8.5-10.1) mg/dL Magnesium 1.7 (1.5-2.0) mg/dL Total Bilirubin 0.6 (0.2-1.0) mg/dL AST 21 (15-37) IU/L ALT 18 (14-63) IU/L Alkaline Phosphatase 119 H (46-116) U/L Troponin I < 0.050 (0.000-0.056) ng/mL B-Natriuretic Peptide (<100) PG/ML Total Protein 7.9 (6.4-8.2) g/dL Albumin 4.0 (3.4-5.0) g/dL Globulin 3.9 H (2.0-3.5) g/dL Albumin/Globulin Ratio 1.0 L (1.3-2.8) Triglycerides (0-200) mg/dL Cholesterol (50-200) mg/dL LDL Cholesterol, Calc (60-180) mg/dL VLDL Cholesterol (5-55) mg/dL HDL Cholesterol (40-60) mg/dL Cholesterol/HDL Ratio (3.3-6.0) TSH 3rd Generation 2.86 (0.36-3.74) uIU/mL Urine Color Urine Appearance Urine pH (5.0-8.0) Ur Specific [place] (1.001-1.035) Urine Protein (NEGATIVE) mg/dL Urine Glucose (UA) (NEGATIVE) mg/dL Urine Ketones (NEGATIVE) mg/dL Urine Occult Blood (NEGATIVE) Urine Nitrite (NEGATIVE) Urine Bilirubin (NEGATIVE) Urine Urobilinogen (<2.0) EU/dL Ur Leukocyte Esterase (NEGATIVE) Urine RBC (0-2/HPF) Urine WBC (0-5/HPF) Ur Epithelial Cells (NONE-FEW) Urine Bacteria (NEGATIVE) 07/06/17 07/06/17 07/06/17 Range/Units 17:51 17:51 19:56 WBC (4.0-11.0) K/uL RBC (4.50-5.90) M/uL Hgb (13.0-17.0) g/dL Hct (38.0-50.0) % MCV (80.0-98.0) fL MCH (27.0-32.0) pg MCHC (31.0-37.0) g/dL RDW Std Deviation (28.0-62.0) fl RDW Coeff of Nolan (11.0-15.0) % Plt Count (150-400) K/uL MPV (7.40-12.00) fL Neut % (Auto) (48.0-80.0) % Lymph % (Auto) (16.0-40.0) % Bonner % (Auto) (0.0-15.0) % Eos % (Auto) (0.0-7.0) % Baso % (Auto) (0.0-1.5) % Neut # (Auto) (1.4-5.7) K/uL Lymph # (Auto) (0.6-2.4) K/uL Bonner # (Auto) (0.0-0.8) K/uL Eos # (Auto) (0.0-0.7) K/uL Baso # (Auto) (0.0-0.1) K/uL Nucleated RBC % /100WBC Nucleated RBCs # K/uL INR APTT (18.6-31.3) SEC Sodium (136-148) mmol/L Potassium (3.5-5.1) mmol/L Chloride (98-107) mmol/L Carbon Dioxide (21.0-32.0) mmol/L BUN (7.0-18.0) mg/dL Creatinine (0.8-1.3) mg/dL Est Cr Clr Drug Dosing Estimated GFR (MDRD) ml/min Glucose (74-106) mg/dL POC Glucose 150 H (60-110) mg/dL Hemoglobin A1c 6.5 H (4.5-6.2) % Calcium (8.5-10.1) mg/dL Magnesium (1.5-2.0) mg/dL Total Bilirubin (0.2-1.0) mg/dL AST (15-37) IU/L ALT (14-63) IU/L Alkaline Phosphatase (46-116) U/L Troponin I (0.000-0.056) ng/mL B-Natriuretic Peptide 927 H (<100) PG/ML Total Protein (6.4-8.2) g/dL Albumin (3.4-5.0) g/dL Globulin (2.0-3.5) g/dL Albumin/Globulin Ratio (1.3-2.8) Triglycerides (0-200) mg/dL Cholesterol (50-200) mg/dL LDL Cholesterol, Calc (60-180) mg/dL VLDL Cholesterol (5-55) mg/dL HDL Cholesterol (40-60) mg/dL Cholesterol/HDL Ratio (3.3-6.0) TSH 3rd Generation (0.36-3.74) uIU/mL Urine Color Urine Appearance Urine pH (5.0-8.0) Ur Specific [place] (1.001-1.035) Urine Protein (NEGATIVE) mg/dL Urine Glucose (UA) (NEGATIVE) mg/dL Urine Ketones (NEGATIVE) mg/dL Urine Occult Blood (NEGATIVE) Urine Nitrite (NEGATIVE) Urine Bilirubin (NEGATIVE) Urine Urobilinogen (<2.0) EU/dL Ur Leukocyte Esterase (NEGATIVE) Urine RBC (0-2/HPF) Urine WBC (0-5/HPF) Ur Epithelial Cells (NONE-FEW) Urine Bacteria (NEGATIVE) 07/06/17 07/06/17 07/06/17 Range/Units 21:02 21:02 21:02 WBC (4.0-11.0) K/uL RBC (4.50-5.90) M/uL Hgb (13.0-17.0) g/dL Hct (38.0-50.0) % MCV (80.0-98.0) fL MCH (27.0-32.0) pg MCHC (31.0-37.0) g/dL RDW Std Deviation (28.0-62.0) fl RDW Coeff of Nolan (11.0-15.0) % Plt Count (150-400) K/uL MPV (7.40-12.00) fL Neut % (Auto) (48.0-80.0) % Lymph % (Auto) (16.0-40.0) % Bonner % (Auto) (0.0-15.0) % Eos % (Auto) (0.0-7.0) % Baso % (Auto) (0.0-1.5) % Neut # (Auto) (1.4-5.7) K/uL Lymph # (Auto) (0.6-2.4) K/uL Bonner # (Auto) (0.0-0.8) K/uL Eos # (Auto) (0.0-0.7) K/uL Baso # (Auto) (0.0-0.1) K/uL Nucleated RBC % /100WBC Nucleated RBCs # K/uL INR 1.10 APTT 26.6 (18.6-31.3) SEC Sodium (136-148) mmol/L Potassium (3.5-5.1) mmol/L Chloride (98-107) mmol/L Carbon Dioxide (21.0-32.0) mmol/L BUN (7.0-18.0) mg/dL Creatinine (0.8-1.3) mg/dL Est Cr Clr Drug Dosing Estimated GFR (MDRD) ml/min Glucose (74-106) mg/dL POC Glucose (60-110) mg/dL Hemoglobin A1c (4.5-6.2) % Calcium (8.5-10.1) mg/dL Magnesium (1.5-2.0) mg/dL Total Bilirubin (0.2-1.0) mg/dL AST (15-37) IU/L ALT (14-63) IU/L Alkaline Phosphatase (46-116) U/L Troponin I < 0.050 (0.000-0.056) ng/mL B-Natriuretic Peptide (<100) PG/ML Total Protein (6.4-8.2) g/dL Albumin (3.4-5.0) g/dL Globulin (2.0-3.5) g/dL Albumin/Globulin Ratio (1.3-2.8) Triglycerides (0-200) mg/dL Cholesterol (50-200) mg/dL LDL Cholesterol, Calc (60-180) mg/dL VLDL Cholesterol (5-55) mg/dL HDL Cholesterol (40-60) mg/dL Cholesterol/HDL Ratio (3.3-6.0) TSH 3rd Generation (0.36-3.74) uIU/mL Urine Color Urine Appearance Urine pH (5.0-8.0) Ur Specific [place] (1.001-1.035) Urine Protein (NEGATIVE) mg/dL Urine Glucose (UA) (NEGATIVE) mg/dL Urine Ketones (NEGATIVE) mg/dL Urine Occult Blood (NEGATIVE) Urine Nitrite (NEGATIVE) Urine Bilirubin (NEGATIVE) Urine Urobilinogen (<2.0) EU/dL Ur Leukocyte Esterase (NEGATIVE) Urine RBC (0-2/HPF) Urine WBC (0-5/HPF) Ur Epithelial Cells (NONE-FEW) Urine Bacteria (NEGATIVE) 07/06/17 07/07/17 07/07/17 Range/Units 22:46 03:13 03:13 WBC 9.00 (4.0-11.0) K/uL RBC 4.80 (4.50-5.90) M/uL Hgb 14.0 (13.0-17.0) g/dL Hct 41.3 (38.0-50.0) % MCV 86.0 (80.0-98.0) fL MCH 29.2 (27.0-32.0) pg MCHC 33.9 (31.0-37.0) g/dL RDW Std Deviation 50.5 (28.0-62.0) fl RDW Coeff of Nolan 16 H (11.0-15.0) % Plt Count 161 (150-400) K/uL MPV 10.00 (7.40-12.00) fL Neut % (Auto) 81.8 H (48.0-80.0) % Lymph % (Auto) 17.2 (16.0-40.0) % Bonner % (Auto) 0.7 (0.0-15.0) % Eos % (Auto) 0.2 (0.0-7.0) % Baso % (Auto) 0.1 (0.0-1.5) % Neut # (Auto) 7.4 H (1.4-5.7) K/uL Lymph # (Auto) 1.6 (0.6-2.4) K/uL Bonner # (Auto) 0.1 (0.0-0.8) K/uL Eos # (Auto) 0.0 (0.0-0.7) K/uL Baso # (Auto) 0.0 (0.0-0.1) K/uL Nucleated RBC % 0.0 /100WBC Nucleated RBCs # 0 K/uL INR APTT (18.6-31.3) SEC Sodium (136-148) mmol/L Potassium (3.5-5.1) mmol/L Chloride (98-107) mmol/L Carbon Dioxide (21.0-32.0) mmol/L BUN (7.0-18.0) mg/dL Creatinine (0.8-1.3) mg/dL Est Cr Clr Drug Dosing Estimated GFR (MDRD) ml/min Glucose (74-106) mg/dL POC Glucose (60-110) mg/dL Hemoglobin A1c (4.5-6.2) % Calcium (8.5-10.1) mg/dL Magnesium (1.5-2.0) mg/dL Total Bilirubin (0.2-1.0) mg/dL AST (15-37) IU/L ALT (14-63) IU/L Alkaline Phosphatase (46-116) U/L Troponin I < 0.050 (0.000-0.056) ng/mL B-Natriuretic Peptide (<100) PG/ML Total Protein (6.4-8.2) g/dL Albumin (3.4-5.0) g/dL Globulin (2.0-3.5) g/dL Albumin/Globulin Ratio (1.3-2.8) Triglycerides (0-200) mg/dL Cholesterol (50-200) mg/dL LDL Cholesterol, Calc (60-180) mg/dL VLDL Cholesterol (5-55) mg/dL HDL Cholesterol (40-60) mg/dL Cholesterol/HDL Ratio (3.3-6.0) TSH 3rd Generation (0.36-3.74) uIU/mL Urine Color YELLOW Urine Appearance CLEAR Urine pH 7.0 (5.0-8.0) Ur Specific [place] 1.010 (1.001-1.035) Urine Protein NEGATIVE (NEGATIVE) mg/dL Urine Glucose (UA) NEGATIVE (NEGATIVE) mg/dL Urine Ketones NEGATIVE (NEGATIVE) mg/dL Urine Occult Blood NEGATIVE (NEGATIVE) Urine Nitrite NEGATIVE (NEGATIVE) Urine Bilirubin NEGATIVE (NEGATIVE) Urine Urobilinogen 0.2 (<2.0) EU/dL Ur Leukocyte Esterase NEGATIVE (NEGATIVE) Urine RBC NONE SEEN (0-2/HPF) Urine WBC 0-2 (0-5/HPF) Ur Epithelial Cells RARE (NONE-FEW) Urine Bacteria RARE (NEGATIVE) 07/07/17 07/07/17 07/07/17 Range/Units 03:13 03:13 03:13 WBC (4.0-11.0) K/uL RBC (4.50-5.90) M/uL Hgb (13.0-17.0) g/dL Hct (38.0-50.0) % MCV (80.0-98.0) fL MCH (27.0-32.0) pg MCHC (31.0-37.0) g/dL RDW Std Deviation (28.0-62.0) fl RDW Coeff of Nolan (11.0-15.0) % Plt Count (150-400) K/uL MPV (7.40-12.00) fL Neut % (Auto) (48.0-80.0) % Lymph % (Auto) (16.0-40.0) % Bonner % (Auto) (0.0-15.0) % Eos % (Auto) (0.0-7.0) % Baso % (Auto) (0.0-1.5) % Neut # (Auto) (1.4-5.7) K/uL Lymph # (Auto) (0.6-2.4) K/uL Bonner # (Auto) (0.0-0.8) K/uL Eos # (Auto) (0.0-0.7) K/uL Baso # (Auto) (0.0-0.1) K/uL Nucleated RBC % /100WBC Nucleated RBCs # K/uL INR 1.09 APTT 52.5 H (18.6-31.3) SEC Sodium 138 (136-148) mmol/L Potassium 4.3 (3.5-5.1) mmol/L Chloride 105 (98-107) mmol/L Carbon Dioxide 23.7 (21.0-32.0) mmol/L BUN 28 H (7.0-18.0) mg/dL Creatinine 1.5 H (0.8-1.3) mg/dL Est Cr Clr Drug Dosing 40.56 Estimated GFR (MDRD) 45.0 ml/min Glucose 159 H (74-106) mg/dL POC Glucose (60-110) mg/dL Hemoglobin A1c (4.5-6.2) % Calcium 9.9 (8.5-10.1) mg/dL Magnesium (1.5-2.0) mg/dL Total Bilirubin (0.2-1.0) mg/dL AST (15-37) IU/L ALT (14-63) IU/L Alkaline Phosphatase (46-116) U/L Troponin I (0.000-0.056) ng/mL B-Natriuretic Peptide (<100) PG/ML Total Protein (6.4-8.2) g/dL Albumin (3.4-5.0) g/dL Globulin (2.0-3.5) g/dL Albumin/Globulin Ratio (1.3-2.8) Triglycerides 45 (0-200) mg/dL Cholesterol 100 (50-200) mg/dL LDL Cholesterol, Calc 53 L (60-180) mg/dL VLDL Cholesterol 9 (5-55) mg/dL HDL Cholesterol 38 L (40-60) mg/dL Cholesterol/HDL Ratio 2.6 L (3.3-6.0) TSH 3rd Generation (0.36-3.74) uIU/mL Urine Color Urine Appearance Urine pH (5.0-8.0) Ur Specific [place] (1.001-1.035) Urine Protein (NEGATIVE) mg/dL Urine Glucose (UA) (NEGATIVE) mg/dL Urine Ketones (NEGATIVE) mg/dL Urine Occult Blood (NEGATIVE) Urine Nitrite (NEGATIVE) Urine Bilirubin (NEGATIVE) Urine Urobilinogen (<2.0) EU/dL Ur Leukocyte Esterase (NEGATIVE) Urine RBC (0-2/HPF) Urine WBC (0-5/HPF) Ur Epithelial Cells (NONE-FEW) Urine Bacteria (NEGATIVE) 07/07/17 Range/Units 09:51 WBC (4.0-11.0) K/uL RBC (4.50-5.90) M/uL Hgb (13.0-17.0) g/dL Hct (38.0-50.0) % MCV (80.0-98.0) fL MCH (27.0-32.0) pg MCHC (31.0-37.0) g/dL RDW Std Deviation (28.0-62.0) fl RDW Coeff of Nolan (11.0-15.0) % Plt Count (150-400) K/uL MPV (7.40-12.00) fL Neut % (Auto) (48.0-80.0) % Lymph % (Auto) (16.0-40.0) % [place] % (Auto) (0.0-15.0) % Eos % (Auto) (0.0-7.0) % Baso % (Auto) (0.0-1.5) % Neut # (Auto) (1.4-5.7) K/uL Lymph # (Auto) (0.6-2.4) K/uL [place] # (Auto) (0.0-0.8) K/uL Eos # (Auto) (0.0-0.7) K/uL Baso # (Auto) (0.0-0.1) K/uL Nucleated RBC % /100WBC Nucleated RBCs # K/uL INR APTT 50.9 H (18.6-31.3) SEC Sodium (136-148) mmol/L Potassium (3.5-5.1) mmol/L Chloride (98-107) mmol/L Carbon Dioxide (21.0-32.0) mmol/L BUN (7.0-18.0) mg/dL Creatinine (0.8-1.3) mg/dL Est Cr Clr Drug Dosing Estimated GFR (MDRD) ml/min Glucose (74-106) mg/dL POC Glucose (60-110) mg/dL Hemoglobin A1c (4.5-6.2) % Calcium (8.5-10.1) mg/dL Magnesium (1.5-2.0) mg/dL Total Bilirubin (0.2-1.0) mg/dL AST (15-37) IU/L ALT (14-63) IU/L Alkaline Phosphatase (46-116) U/L Troponin I (0.000-0.056) ng/mL B-Natriuretic Peptide (<100) PG/ML Total Protein (6.4-8.2) g/dL Albumin (3.4-5.0) g/dL Globulin (2.0-3.5) g/dL Albumin/Globulin Ratio (1.3-2.8) Triglycerides (0-200) mg/dL Cholesterol (50-200) mg/dL LDL Cholesterol, Calc (60-180) mg/dL VLDL Cholesterol (5-55) mg/dL HDL Cholesterol (40-60) mg/dL Cholesterol/HDL Ratio (3.3-6.0) TSH 3rd Generation (0.36-3.74) uIU/mL Urine Color Urine Appearance Urine pH (5.0-8.0) Ur Specific [place] (1.001-1.035) Urine Protein (NEGATIVE) mg/dL Urine Glucose (UA) (NEGATIVE) mg/dL Urine Ketones (NEGATIVE) mg/dL Urine Occult Blood (NEGATIVE) Urine Nitrite (NEGATIVE) Urine Bilirubin (NEGATIVE) Urine Urobilinogen (<2.0) EU/dL Ur Leukocyte Esterase (NEGATIVE) Urine RBC (0-2/HPF) Urine WBC (0-5/HPF) Ur Epithelial Cells (NONE-FEW) Urine Bacteria (NEGATIVE) Med Orders - Current: Current Medications Acetaminophen (Tylenol) 650 mg PO Q4H PRN PRN Reason: Pain (Mild 1-3)/fever Allopurinol (Zyloprim) 300 mg PO DAILY [facility] Last Admin: 07/07/17 09:35 Dose: 300 mg Amoxicillin/Clavulanate Potassium (Augmentin 875 Mg/125 Mg) 1 tab PO Q12HR [facility] Last Admin: 07/07/17 09:35 Dose: 1 tab Aspirin (Aspirin) 81 mg PO DAILY [facility] Last Admin: 07/07/17 09:35 Dose: 81 mg Atorvastatin Calcium (Lipitor) 40 mg PO DAILY [facility] Last Admin: 07/07/17 10:22 Dose: 40 mg Fexofenadine HCl (Yohana) 60 mg PO BID PRN PRN Reason: Allergies Fish Oil (Fish Oil) 1 gm PO DAILY [facility] Last Admin: 07/07/17 09:35 Dose: 1 gm Fluticasone Propionate (Flonase) 0 gm NASBOTH BID [facility] Last Admin: 07/07/17 09:35 Dose: 1 spr Heparin Sod,Pork In 0.45% Nacl (Heparin-1/2ns 25,000 Units/500) 25,000 unit in 500 mls @ 20 mls/hr IV TITRATE [facility]; Protocol Last Admin: 07/06/17 21:49 Dose: 1,000 units/hr, 20 mls/hr Insulin Aspart (Novolog) 0 unit SUBCUT TIDAC [facility]; Protocol Last Admin: 07/07/17 06:57 Dose: 1 unit Methylprednisolone Sodium Succinate (Solu-Medrol) 40 mg IVPUSH Q12H [facility] Last Admin: 07/07/17 09:35 Dose: 40 mg Metoprolol Tartrate (Lopressor) 50 mg PO Q12H [facility] Last Admin: 07/07/17 05:26 Dose: 50 mg Ondansetron HCl (Zofran Odt) 4 mg PO Q4H PRN PRN Reason: nausea, able to take PO Fa/Lycopene/Lut/Mv, (Ca,Iron,Min 1 Tab) 1 each PO DAILY [facility] Sodium Chloride (Saline Flush) 10 ml FLUSH ASDIRECTED PRN PRN Reason: Keep Vein Open Sodium Chloride (Saline Flush) 2.5 ml FLUSH ASDIRECTED PRN PRN Reason: Keep Vein Open Warfarin Sodium (Coumadin Sliding Scale) 0 each PO ASDIRECTED [facility] Warfarin Sodium (Coumadin) 5 mg PO 1400 HUGH Discontinued Medications Aspirin (Aspirin) 325 mg PO ONETIME ONE Stop: 07/06/17 16:26 Last Admin: 07/06/17 16:32 Dose: 325 mg Cetirizine HCl (Zyrtec) 10 mg PO DAILY [facility] Last Admin: 07/06/17 20:13 Dose: 10 mg Heparin Sodium (Porcine) (Heparin Sodium) 5,000 units IVPUSH ONETIME ONE Stop: 07/06/17 21:16 Last Admin: 07/06/17 21:48 Dose: 5,000 units Lactated Ringer's (Ringers, Lactated) 1,000 mls @ 50 mls/hr IV ASDIRECTED [facility] Lactated Ringer's (Ringers, Lactated) 1,000 mls @ 999 mls/hr IV .BOLUS ONE Stop: 07/06/17 19:08 Last Admin: 07/06/17 18:27 Dose: 999 mls/hr Non-Formulary Medication (Atorvastatin [Lipitor]) 40 mg PO DAILY [facility] Last Admin: 07/07/17 10:23 Dose: Not Given Non-Formulary Medication (Fa/Lycopene/Lut/Mv,Ca,Iron,Min) 1 tab PO DAILY [facility] Last Admin: 07/07/17 10:23 Dose: Not Given Warfarin Sodium (Coumadin) 5 mg PO ONETIME ONE Stop: 07/06/17 21:01 Last Admin: 07/06/17 21:55 Dose: 5 mg - Exam General: Alert, Oriented, Cooperative, No Acute Distress HEENT: Pupils Equal, Pupils Reactive, EOMI, Mucous Membr. Moist/Leonardo Lungs: Clear to Auscultation, Normal Respiratory Effort Cardiovascular: Regular Rate, Regular Rhythm GI/Abdominal Exam: Normal Bowel Sounds, Soft, Non-Tender, No Organomegaly, No Distention, No Abnormal Bruit, No Mass, Pelvis Stable Extremities: Normal Inspection, Normal Range of Motion, Non-Tender, No Pedal Edema, Normal Capillary Refill Peripheral Pulses: 2+: Radial (L), Radial (R), Posterior Tibial (L), Posterior Tibial (R) Skin: Warm, Dry, Intact Neurological: No New Focal Deficit, Other (There is residual left upper and lower extremity weakness secondary to a prior stroke. Patient states that this is normal for him.) Psy/Mental Status: Alert, Normal Affect, Normal Mood - Problem List & Annotations (1) Atrial fibrillation SNOMED Code(s): 85313860 Code(s): I48.91 - UNSPECIFIED ATRIAL FIBRILLATION Status: Acute Current Visit: No Qualifiers: Atrial fibrillation type: unspecified Qualified Code(s): I48.91 - Unspecified atrial fibrillation (2) TIA (transient ischemic attack) SNOMED Code(s): 099380661 Code(s): G45.9 - TRANSIENT CEREBRAL ISCHEMIC ATTACK, UNSPECIFIED Status: Acute Current Visit: No Qualifiers: Transient cerebral ischemia type: unspecified Qualified Code(s): G45.9 - Transient cerebral ischemic attack, unspecified - Problem List Review Problem List Initiated/Reviewed/Updated: Yes - My Orders Last 24 Hours: My Active Orders 07/06/17 17:32 Height and Weight [RC] DAILY Nursing Bedside Swallow Screen [RC] ASDIRECTED Up With Assistance [RC] ASDIRECTED PT Evaluation and Treatment [CONS] Routine Ang Head wo Cont [MR] Stat Ang Neck wo Cont [MR] Stat Brain w wo Cont [MR] Stat Acetaminophen [Tylenol] 650 mg PO Q4H PRN Ondansetron [Zofran ODT] 4 mg PO Q4H PRN 07/06/17 17:33 Intake and Output [RC] Q12H Oxygen Therapy [RC] PRN Pulse Oximetry [RC] PRN Vital Signs [RC] Q4H 07/06/17 17:34 Notify Provider Vital Signs [RC] ASDIRECTED Sequential Compression Device [OM.PC] Per Unit Routine 07/06/17 17:41 Neuro Check [RC] BID Telemetry Monitoring [Cardiac Monitoring] [RC] Q8H Fexofenadine [Yohana] 60 mg PO BID PRN 07/06/17 17:45 Metoprolol Tartrate [Lopressor] 50 mg PO Q12H 07/06/17 18:16 Blood Glucose Check, Bedside [RC] TIDAC 07/07/17 Echo Comp wo Cont [US] Stat 07/07/17 07:30 Insulin Aspart [NovoLOG] See Protocol SUBCUT TIDAC 07/07/17 09:00 Allopurinol [Zyloprim] 300 mg PO DAILY Aspirin 81 mg PO DAILY Fish Oil/[place]-3 Fatty Acids [Fish Oil] 1 gm PO DAILY 07/07/17 10:03 atorvaSTATin [Lipitor] 40 mg PO DAILY 07/08/17 05:11 BASIC METABOLIC PANEL,BMP [CHEM] AM CBC WITH AUTO DIFF [HEME] AM 07/08/17 09:00 Patient's Own Medication [Ptom] 1 each PO DAILY 07/09/17 05:11 BASIC METABOLIC PANEL,BMP [CHEM] AM CBC WITH AUTO DIFF [HEME] AM - Plan Plan:: 82-year-old male being admitted with TIA and new onset atrial fibrillation. #1. TIA: -Continue daily baby aspirin -MRA of the head and neck, echocardiogram and MRI of the brain are pending. -Neuro checks twice a day. Patient passed bedside swallow evaluation by nursing. -Lipid panel unremarkable. Continue Lipitor. -Serial troponins are negative. -Carotid ultrasounds shows less than 50% stenosis in the right internal carotid artery. There is between 50 and 69% stenosis within the left internal carotid artery. #2. New onset atrial fibrillation that is rate controlled: -Continue on telemetry. Telemetry showing A. fib with a heart rate range of 60- 70. -Continue home medication of metoprolol titrate 50 mg twice a day. -Mason VasC score 5. Patient started on 5 mg warfarin daily. Insurance will not cover other anticoagulants. INR pending in the morning. #3. Hypertension: -Continue to hold Ramipril and Norvasc to allow for permissive hypertension. Blood pressure is normal today. -Metoprolol will be continued for both his hypertension and rate control of his new onset atrial fibrillation. #4. Acute kidney injury: -Patient will be given IV fluids. -We will hold his MARÍA inhibitor to see if this helps. -BUN and creatinine are stable. Tinea to monitor with daily BMP. #5. Tobacco use: -Patient declines a nicotine patch currently. #6. Type 2 diabetes, newly diagnosed: - hemoglobin A1c is 6.5%. Patient started on NovoLog sliding scale. Continue bedside glucose checks #7. Elevated BNP: -Could be secondary to his kidney function. Echocardiogram is pending. There is no peripheral edema or orthopnea. #8. Chronic sinusitis as evidenced on CT: -Continue Augmentin, home medication of Yohana and Flonase. #9. Dizziness: -Patient will be evaluated by physical therapy today. DVT prophylaxis: SCDs and heparin. Disposition: 1-2 days pending improvement. <Nico Castellanos - Last Filed: 07/07/17 14:00> - Patient Data Vitals - Most Recent: Last Vital Signs Temp 97.7 F 07/07/17 12:00 Pulse 77 07/07/17 12:00 Resp 16 07/07/17 12:00 BP 154/70 H 07/07/17 12:00 Pulse Ox 94 L 07/07/17 12:00 I&O - Last 24 Hours: Intake & Output 07/06/17 07/07/17 07/07/17 22:59 06:59 14:59 Intake Total 1000 317 Output Total 350 Balance 1000 -33 Lab Results Last 24 Hours: Laboratory Results - last 24 hr 07/06/17 07/06/17 07/06/17 Range/Units 14:58 14:58 14:58 WBC 10.24 (4.0-11.0) K/uL RBC 4.93 (4.50-5.90) M/uL Hgb 14.6 (13.0-17.0) g/dL Hct 43.1 (38.0-50.0) % MCV 87.4 (80.0-98.0) fL MCH 29.6 (27.0-32.0) pg MCHC 33.9 (31.0-37.0) g/dL RDW Std Deviation 51.5 (28.0-62.0) fl RDW Coeff of Nolan 16 H (11.0-15.0) % Plt Count 170 (150-400) K/uL MPV 9.60 (7.40-12.00) fL Neut % (Auto) 64.5 (48.0-80.0) % Lymph % (Auto) 27.5 (16.0-40.0) % Bonner % (Auto) 6.7 (0.0-15.0) % Eos % (Auto) 1.0 (0.0-7.0) % Baso % (Auto) 0.3 (0.0-1.5) % Neut # (Auto) 6.6 H (1.4-5.7) K/uL Lymph # (Auto) 2.8 H (0.6-2.4) K/uL Bonner # (Auto) 0.7 (0.0-0.8) K/uL Eos # (Auto) 0.1 (0.0-0.7) K/uL Baso # (Auto) 0.0 (0.0-0.1) K/uL Nucleated RBC % 0.0 /100WBC Nucleated RBCs # 0 K/uL INR 1.08 APTT (18.6-31.3) SEC Sodium 139 (136-148) mmol/L Potassium 3.9 (3.5-5.1) mmol/L Chloride 105 (98-107) mmol/L Carbon Dioxide 24.8 (21.0-32.0) mmol/L BUN 26 H (7.0-18.0) mg/dL Creatinine 1.6 H (0.8-1.3) mg/dL Est Cr Clr Drug Dosing TNP Estimated GFR (MDRD) 41.8 ml/min Glucose 116 H (74-106) mg/dL POC Glucose (60-110) mg/dL Hemoglobin A1c (4.5-6.2) % Calcium 9.7 (8.5-10.1) mg/dL Magnesium 1.7 (1.5-2.0) mg/dL Total Bilirubin 0.6 (0.2-1.0) mg/dL AST 21 (15-37) IU/L ALT 18 (14-63) IU/L Alkaline Phosphatase 119 H (46-116) U/L Troponin I < 0.050 (0.000-0.056) ng/mL B-Natriuretic Peptide (<100) PG/ML Total Protein 7.9 (6.4-8.2) g/dL Albumin 4.0 (3.4-5.0) g/dL Globulin 3.9 H (2.0-3.5) g/dL Albumin/Globulin Ratio 1.0 L (1.3-2.8) Triglycerides (0-200) mg/dL Cholesterol (50-200) mg/dL LDL Cholesterol, Calc (60-180) mg/dL VLDL Cholesterol (5-55) mg/dL HDL Cholesterol (40-60) mg/dL Cholesterol/HDL Ratio (3.3-6.0) TSH 3rd Generation 2.86 (0.36-3.74) uIU/mL Urine Color Urine Appearance Urine pH (5.0-8.0) Ur Specific [place] (1.001-1.035) Urine Protein (NEGATIVE) mg/dL Urine Glucose (UA) (NEGATIVE) mg/dL Urine Ketones (NEGATIVE) mg/dL Urine Occult Blood (NEGATIVE) Urine Nitrite (NEGATIVE) Urine Bilirubin (NEGATIVE) Urine Urobilinogen (<2.0) EU/dL Ur Leukocyte Esterase (NEGATIVE) Urine RBC (0-2/HPF) Urine WBC (0-5/HPF) Ur Epithelial Cells (NONE-FEW) Urine Bacteria (NEGATIVE) 07/06/17 07/06/17 07/06/17 Range/Units 17:51 17:51 19:56 WBC (4.0-11.0) K/uL RBC (4.50-5.90) M/uL Hgb (13.0-17.0) g/dL Hct (38.0-50.0) % MCV (80.0-98.0) fL MCH (27.0-32.0) pg MCHC (31.0-37.0) g/dL RDW Std Deviation (28.0-62.0) fl RDW Coeff of Nolan (11.0-15.0) % Plt Count (150-400) K/uL MPV (7.40-12.00) fL Neut % (Auto) (48.0-80.0) % Lymph % (Auto) (16.0-40.0) % Bonner % (Auto) (0.0-15.0) % Eos % (Auto) (0.0-7.0) % Baso % (Auto) (0.0-1.5) % Neut # (Auto) (1.4-5.7) K/uL Lymph # (Auto) (0.6-2.4) K/uL Bonner # (Auto) (0.0-0.8) K/uL Eos # (Auto) (0.0-0.7) K/uL Baso # (Auto) (0.0-0.1) K/uL Nucleated RBC % /100WBC Nucleated RBCs # K/uL INR APTT (18.6-31.3) SEC Sodium (136-148) mmol/L Potassium (3.5-5.1) mmol/L Chloride (98-107) mmol/L Carbon Dioxide (21.0-32.0) mmol/L BUN (7.0-18.0) mg/dL Creatinine (0.8-1.3) mg/dL Est Cr Clr Drug Dosing Estimated GFR (MDRD) ml/min Glucose (74-106) mg/dL POC Glucose 150 H (60-110) mg/dL Hemoglobin A1c 6.5 H (4.5-6.2) % Calcium (8.5-10.1) mg/dL Magnesium (1.5-2.0) mg/dL Total Bilirubin (0.2-1.0) mg/dL AST (15-37) IU/L ALT (14-63) IU/L Alkaline Phosphatase (46-116) U/L Troponin I (0.000-0.056) ng/mL B-Natriuretic Peptide 927 H (<100) PG/ML Total Protein (6.4-8.2) g/dL Albumin (3.4-5.0) g/dL Globulin (2.0-3.5) g/dL Albumin/Globulin Ratio (1.3-2.8) Triglycerides (0-200) mg/dL Cholesterol (50-200) mg/dL LDL Cholesterol, Calc (60-180) mg/dL VLDL Cholesterol (5-55) mg/dL HDL Cholesterol (40-60) mg/dL Cholesterol/HDL Ratio (3.3-6.0) TSH 3rd Generation (0.36-3.74) uIU/mL Urine Color Urine Appearance Urine pH (5.0-8.0) Ur Specific [place] (1.001-1.035) Urine Protein (NEGATIVE) mg/dL Urine Glucose (UA) (NEGATIVE) mg/dL Urine Ketones (NEGATIVE) mg/dL Urine Occult Blood (NEGATIVE) Urine Nitrite (NEGATIVE) Urine Bilirubin (NEGATIVE) Urine Urobilinogen (<2.0) EU/dL Ur Leukocyte Esterase (NEGATIVE) Urine RBC (0-2/HPF) Urine WBC (0-5/HPF) Ur Epithelial Cells (NONE-FEW) Urine Bacteria (NEGATIVE) 07/06/17 07/06/17 07/06/17 Range/Units 21:02 21:02 21:02 WBC (4.0-11.0) K/uL RBC (4.50-5.90) M/uL Hgb (13.0-17.0) g/dL Hct (38.0-50.0) % MCV (80.0-98.0) fL MCH (27.0-32.0) pg MCHC (31.0-37.0) g/dL RDW Std Deviation (28.0-62.0) fl RDW Coeff of Nolan (11.0-15.0) % Plt Count (150-400) K/uL MPV (7.40-12.00) fL Neut % (Auto) (48.0-80.0) % Lymph % (Auto) (16.0-40.0) % Bonner % (Auto) (0.0-15.0) % Eos % (Auto) (0.0-7.0) % Baso % (Auto) (0.0-1.5) % Neut # (Auto) (1.4-5.7) K/uL Lymph # (Auto) (0.6-2.4) K/uL Bonner # (Auto) (0.0-0.8) K/uL Eos # (Auto) (0.0-0.7) K/uL Baso # (Auto) (0.0-0.1) K/uL Nucleated RBC % /100WBC Nucleated RBCs # K/uL INR 1.10 APTT 26.6 (18.6-31.3) SEC Sodium (136-148) mmol/L Potassium (3.5-5.1) mmol/L Chloride (98-107) mmol/L Carbon Dioxide (21.0-32.0) mmol/L BUN (7.0-18.0) mg/dL Creatinine (0.8-1.3) mg/dL Est Cr Clr Drug Dosing Estimated GFR (MDRD) ml/min Glucose (74-106) mg/dL POC Glucose (60-110) mg/dL Hemoglobin A1c (4.5-6.2) % Calcium (8.5-10.1) mg/dL Magnesium (1.5-2.0) mg/dL Total Bilirubin (0.2-1.0) mg/dL AST (15-37) IU/L ALT (14-63) IU/L Alkaline Phosphatase (46-116) U/L Troponin I < 0.050 (0.000-0.056) ng/mL B-Natriuretic Peptide (<100) PG/ML Total Protein (6.4-8.2) g/dL Albumin (3.4-5.0) g/dL Globulin (2.0-3.5) g/dL Albumin/Globulin Ratio (1.3-2.8) Triglycerides (0-200) mg/dL Cholesterol (50-200) mg/dL LDL Cholesterol, Calc (60-180) mg/dL VLDL Cholesterol (5-55) mg/dL HDL Cholesterol (40-60) mg/dL Cholesterol/HDL Ratio (3.3-6.0) TSH 3rd Generation (0.36-3.74) uIU/mL Urine Color Urine Appearance Urine pH (5.0-8.0) Ur Specific [place] (1.001-1.035) Urine Protein (NEGATIVE) mg/dL Urine Glucose (UA) (NEGATIVE) mg/dL Urine Ketones (NEGATIVE) mg/dL Urine Occult Blood (NEGATIVE) Urine Nitrite (NEGATIVE) Urine Bilirubin (NEGATIVE) Urine Urobilinogen (<2.0) EU/dL Ur Leukocyte Esterase (NEGATIVE) Urine RBC (0-2/HPF) Urine WBC (0-5/HPF) Ur Epithelial Cells (NONE-FEW) Urine Bacteria (NEGATIVE) 07/06/17 07/07/17 07/07/17 Range/Units 22:46 03:13 03:13 WBC 9.00 (4.0-11.0) K/uL RBC 4.80 (4.50-5.90) M/uL Hgb 14.0 (13.0-17.0) g/dL Hct 41.3 (38.0-50.0) % MCV 86.0 (80.0-98.0) fL MCH 29.2 (27.0-32.0) pg MCHC 33.9 (31.0-37.0) g/dL RDW Std Deviation 50.5 (28.0-62.0) fl RDW Coeff of Nolan 16 H (11.0-15.0) % Plt Count 161 (150-400) K/uL MPV 10.00 (7.40-12.00) fL Neut % (Auto) 81.8 H (48.0-80.0) % Lymph % (Auto) 17.2 (16.0-40.0) % Bonner % (Auto) 0.7 (0.0-15.0) % Eos % (Auto) 0.2 (0.0-7.0) % Baso % (Auto) 0.1 (0.0-1.5) % Neut # (Auto) 7.4 H (1.4-5.7) K/uL Lymph # (Auto) 1.6 (0.6-2.4) K/uL Bonner # (Auto) 0.1 (0.0-0.8) K/uL Eos # (Auto) 0.0 (0.0-0.7) K/uL Baso # (Auto) 0.0 (0.0-0.1) K/uL Nucleated RBC % 0.0 /100WBC Nucleated RBCs # 0 K/uL INR APTT (18.6-31.3) SEC Sodium (136-148) mmol/L Potassium (3.5-5.1) mmol/L Chloride (98-107) mmol/L Carbon Dioxide (21.0-32.0) mmol/L BUN (7.0-18.0) mg/dL Creatinine (0.8-1.3) mg/dL Est Cr Clr Drug Dosing Estimated GFR (MDRD) ml/min Glucose (74-106) mg/dL POC Glucose (60-110) mg/dL Hemoglobin A1c (4.5-6.2) % Calcium (8.5-10.1) mg/dL Magnesium (1.5-2.0) mg/dL Total Bilirubin (0.2-1.0) mg/dL AST (15-37) IU/L ALT (14-63) IU/L Alkaline Phosphatase (46-116) U/L Troponin I < 0.050 (0.000-0.056) ng/mL B-Natriuretic Peptide (<100) PG/ML Total Protein (6.4-8.2) g/dL Albumin (3.4-5.0) g/dL Globulin (2.0-3.5) g/dL Albumin/Globulin Ratio (1.3-2.8) Triglycerides (0-200) mg/dL Cholesterol (50-200) mg/dL LDL Cholesterol, Calc (60-180) mg/dL VLDL Cholesterol (5-55) mg/dL HDL Cholesterol (40-60) mg/dL Cholesterol/HDL Ratio (3.3-6.0) TSH 3rd Generation (0.36-3.74) uIU/mL Urine Color YELLOW Urine Appearance CLEAR Urine pH 7.0 (5.0-8.0) Ur Specific [place] 1.010 (1.001-1.035) Urine Protein NEGATIVE (NEGATIVE) mg/dL Urine Glucose (UA) NEGATIVE (NEGATIVE) mg/dL Urine Ketones NEGATIVE (NEGATIVE) mg/dL Urine Occult Blood NEGATIVE (NEGATIVE) Urine Nitrite NEGATIVE (NEGATIVE) Urine Bilirubin NEGATIVE (NEGATIVE) Urine Urobilinogen 0.2 (<2.0) EU/dL Ur Leukocyte Esterase NEGATIVE (NEGATIVE) Urine RBC NONE SEEN (0-2/HPF) Urine WBC 0-2 (0-5/HPF) Ur Epithelial Cells RARE (NONE-FEW) Urine Bacteria RARE (NEGATIVE) 07/07/17 07/07/17 07/07/17 Range/Units 03:13 03:13 03:13 WBC (4.0-11.0) K/uL RBC (4.50-5.90) M/uL Hgb (13.0-17.0) g/dL Hct (38.0-50.0) % MCV (80.0-98.0) fL MCH (27.0-32.0) pg MCHC (31.0-37.0) g/dL RDW Std Deviation (28.0-62.0) fl RDW Coeff of Nolan (11.0-15.0) % Plt Count (150-400) K/uL MPV (7.40-12.00) fL Neut % (Auto) (48.0-80.0) % Lymph % (Auto) (16.0-40.0) % Bonner % (Auto) (0.0-15.0) % Eos % (Auto) (0.0-7.0) % Baso % (Auto) (0.0-1.5) % Neut # (Auto) (1.4-5.7) K/uL Lymph # (Auto) (0.6-2.4) K/uL Bonner # (Auto) (0.0-0.8) K/uL Eos # (Auto) (0.0-0.7) K/uL Baso # (Auto) (0.0-0.1) K/uL Nucleated RBC % /100WBC Nucleated RBCs # K/uL INR 1.09 APTT 52.5 H (18.6-31.3) SEC Sodium 138 (136-148) mmol/L Potassium 4.3 (3.5-5.1) mmol/L Chloride 105 (98-107) mmol/L Carbon Dioxide 23.7 (21.0-32.0) mmol/L BUN 28 H (7.0-18.0) mg/dL Creatinine 1.5 H (0.8-1.3) mg/dL Est Cr Clr Drug Dosing 40.56 Estimated GFR (MDRD) 45.0 ml/min Glucose 159 H (74-106) mg/dL POC Glucose (60-110) mg/dL Hemoglobin A1c (4.5-6.2) % Calcium 9.9 (8.5-10.1) mg/dL Magnesium (1.5-2.0) mg/dL Total Bilirubin (0.2-1.0) mg/dL AST (15-37) IU/L ALT (14-63) IU/L Alkaline Phosphatase (46-116) U/L Troponin I (0.000-0.056) ng/mL B-Natriuretic Peptide (<100) PG/ML Total Protein (6.4-8.2) g/dL Albumin (3.4-5.0) g/dL Globulin (2.0-3.5) g/dL Albumin/Globulin Ratio (1.3-2.8) Triglycerides 45 (0-200) mg/dL Cholesterol 100 (50-200) mg/dL LDL Cholesterol, Calc 53 L (60-180) mg/dL VLDL Cholesterol 9 (5-55) mg/dL HDL Cholesterol 38 L (40-60) mg/dL Cholesterol/HDL Ratio 2.6 L (3.3-6.0) TSH 3rd Generation (0.36-3.74) uIU/mL Urine Color Urine Appearance Urine pH (5.0-8.0) Ur Specific [place] (1.001-1.035) Urine Protein (NEGATIVE) mg/dL Urine Glucose (UA) (NEGATIVE) mg/dL Urine Ketones (NEGATIVE) mg/dL Urine Occult Blood (NEGATIVE) Urine Nitrite (NEGATIVE) Urine Bilirubin (NEGATIVE) Urine Urobilinogen (<2.0) EU/dL Ur Leukocyte Esterase (NEGATIVE) Urine RBC (0-2/HPF) Urine WBC (0-5/HPF) Ur Epithelial Cells (NONE-FEW) Urine Bacteria (NEGATIVE) 07/07/17 07/07/17 Range/Units 06:46 09:51 WBC (4.0-11.0) K/uL RBC (4.50-5.90) M/uL Hgb (13.0-17.0) g/dL Hct (38.0-50.0) % MCV (80.0-98.0) fL MCH (27.0-32.0) pg MCHC (31.0-37.0) g/dL RDW Std Deviation (28.0-62.0) fl RDW Coeff of Nolan (11.0-15.0) % Plt Count (150-400) K/uL MPV (7.40-12.00) fL Neut % (Auto) (48.0-80.0) % Lymph % (Auto) (16.0-40.0) % Bonner % (Auto) (0.0-15.0) % Eos % (Auto) (0.0-7.0) % Baso % (Auto) (0.0-1.5) % Neut # (Auto) (1.4-5.7) K/uL Lymph # (Auto) (0.6-2.4) K/uL Bonner # (Auto) (0.0-0.8) K/uL Eos # (Auto) (0.0-0.7) K/uL Baso # (Auto) (0.0-0.1) K/uL Nucleated RBC % /100WBC Nucleated RBCs # K/uL INR APTT 50.9 H (18.6-31.3) SEC Sodium (136-148) mmol/L Potassium (3.5-5.1) mmol/L Chloride (98-107) mmol/L Carbon Dioxide (21.0-32.0) mmol/L BUN (7.0-18.0) mg/dL Creatinine (0.8-1.3) mg/dL Est Cr Clr Drug Dosing Estimated GFR (MDRD) ml/min Glucose (74-106) mg/dL POC Glucose 190 H (60-110) mg/dL Hemoglobin A1c (4.5-6.2) % Calcium (8.5-10.1) mg/dL Magnesium (1.5-2.0) mg/dL Total Bilirubin (0.2-1.0) mg/dL AST (15-37) IU/L ALT (14-63) IU/L Alkaline Phosphatase (46-116) U/L Troponin I (0.000-0.056) ng/mL B-Natriuretic Peptide (<100) PG/ML Total Protein (6.4-8.2) g/dL Albumin (3.4-5.0) g/dL Globulin (2.0-3.5) g/dL Albumin/Globulin Ratio (1.3-2.8) Triglycerides (0-200) mg/dL Cholesterol (50-200) mg/dL LDL Cholesterol, Calc (60-180) mg/dL VLDL Cholesterol (5-55) mg/dL HDL Cholesterol (40-60) mg/dL Cholesterol/HDL Ratio (3.3-6.0) TSH 3rd Generation (0.36-3.74) uIU/mL Urine Color Urine Appearance Urine pH (5.0-8.0) Ur Specific [place] (1.001-1.035) Urine Protein (NEGATIVE) mg/dL Urine Glucose (UA) (NEGATIVE) mg/dL Urine Ketones (NEGATIVE) mg/dL Urine Occult Blood (NEGATIVE) Urine Nitrite (NEGATIVE) Urine Bilirubin (NEGATIVE) Urine Urobilinogen (<2.0) EU/dL Ur Leukocyte Esterase (NEGATIVE) Urine RBC (0-2/HPF) Urine WBC (0-5/HPF) Ur Epithelial Cells (NONE-FEW) Urine Bacteria (NEGATIVE) Med Orders - Current: Current Medications Acetaminophen (Tylenol) 650 mg PO Q4H PRN PRN Reason: Pain (Mild 1-3)/fever Allopurinol (Zyloprim) 300 mg PO DAILY [facility] Last Admin: 07/07/17 09:35 Dose: 300 mg Amoxicillin/Clavulanate Potassium (Augmentin 875 Mg/125 Mg) 1 tab PO Q12HR [facility] Last Admin: 07/07/17 09:35 Dose: 1 tab Aspirin (Aspirin) 81 mg PO DAILY [facility] Last Admin: 07/07/17 09:35 Dose: 81 mg Atorvastatin Calcium (Lipitor) 40 mg PO DAILY [facility] Last Admin: 07/07/17 10:22 Dose: 40 mg Fexofenadine HCl (Yohana) 60 mg PO BID PRN PRN Reason: Allergies Fish Oil (Fish Oil) 1 gm PO DAILY [facility] Last Admin: 07/07/17 09:35 Dose: 1 gm Fluticasone Propionate (Flonase) 0 gm NASBOTH BID [facility] Last Admin: 07/07/17 09:35 Dose: 1 spr Heparin Sod,Pork In 0.45% Nacl (Heparin-1/2ns 25,000 Units/500) 25,000 unit in 500 mls @ 20 mls/hr IV TITRATE [facility]; Protocol Last Admin: 07/06/17 21:49 Dose: 1,000 units/hr, 20 mls/hr Insulin Aspart (Novolog) 0 unit SUBCUT TIDAC [facility]; Protocol Last Admin: 07/07/17 12:30 Dose: Not Given Methylprednisolone Sodium Succinate (Solu-Medrol) 40 mg IVPUSH Q12H [facility] Last Admin: 07/07/17 09:35 Dose: 40 mg Metoprolol Tartrate (Lopressor) 50 mg PO Q12H [facility] Last Admin: 07/07/17 05:26 Dose: 50 mg Ondansetron HCl (Zofran Odt) 4 mg PO Q4H PRN PRN Reason: nausea, able to take PO Fa/Lycopene/Lut/Mv, (Ca,Iron,Min 1 Tab) 1 each PO DAILY [facility] Sodium Chloride (Saline Flush) 10 ml FLUSH ASDIRECTED PRN PRN Reason: Keep Vein Open Sodium Chloride (Saline Flush) 2.5 ml FLUSH ASDIRECTED PRN PRN Reason: Keep Vein Open Warfarin Sodium (Coumadin Sliding Scale) 0 each PO ASDIRECTED [facility] Warfarin Sodium (Coumadin) 5 mg PO 1400 [facility] Last Admin: 07/07/17 13:46 Dose: 5 mg Discontinued Medications Aspirin (Aspirin) 325 mg PO ONETIME ONE Stop: 07/06/17 16:26 Last Admin: 07/06/17 16:32 Dose: 325 mg Cetirizine HCl (Zyrtec) 10 mg PO DAILY [facility] Last Admin: 07/06/17 20:13 Dose: 10 mg Gadobenate Dimeglumine (Multihance) 20 ml IVPUSH ONETIME STA Stop: 07/07/17 11:13 Last Admin: 07/07/17 11:15 Dose: 10 ml Heparin Sodium (Porcine) (Heparin Sodium) 5,000 units IVPUSH ONETIME ONE Stop: 07/06/17 21:16 Last Admin: 07/06/17 21:48 Dose: 5,000 units Lactated Ringer's (Ringers, Lactated) 1,000 mls @ 50 mls/hr IV ASDIRECTED [facility] Lactated Ringer's (Ringers, Lactated) 1,000 mls @ 999 mls/hr IV .BOLUS ONE Stop: 07/06/17 19:08 Last Admin: 07/06/17 18:27 Dose: 999 mls/hr Non-Formulary Medication (Atorvastatin [Lipitor]) 40 mg PO DAILY [facility] Last Admin: 07/07/17 10:23 Dose: Not Given Non-Formulary Medication (Fa/Lycopene/Lut/Mv,Ca,Iron,Min) 1 tab PO DAILY [facility] Last Admin: 07/07/17 10:23 Dose: Not Given Warfarin Sodium (Coumadin) 5 mg PO ONETIME ONE Stop: 07/06/17 21:01 Last Admin: 07/06/17 21:55 Dose: 5 mg - Problem List Review Problem List Initiated/Reviewed/Updated: Yes - My Orders Last 24 Hours: My Active Orders 07/06/17 18:38 Neuro Check [RC] Q2HR 07/06/17 19:43 Communication Order [RC] ROUTINE 07/06/17 19:45 Communication Order [RC] ROUTINE 07/06/17 20:00 methylPREDNISolone Sod Succ [Solu-MEDROL] 40 mg IVPUSH Q12H 07/06/17 21:00 Amoxicillin/Clavulanate K [Augmentin 875 MG/125 MG] 1 tab PO Q12HR Fluticasone Propionate [Flonase] 0 gm NASBOTH BID 07/06/17 21:15 Heparin Sod,Pork In 0.45% Nacl [Heparin-1/2Ns 25,000 Units/500] 25,000 unit in 500 ml IV TITRATE 07/07/17 14:00 Warfarin [Coumadin] 5 mg PO 1400 07/07/17 15:00 PTT,PARTIAL THROMBOPLSTIN TIME [COAG] Q6H - Plan Plan:: patient on heparin drip , sinusitis improved , has also postnasal drip , continue antiallergenic and steroids . Patient was seen and discussed with resident . Agree with assessment and plan
[2017-07-07] MEDS ORDERED: Gadobenate Dimeglumine 529 MG/ML 20 ML SDV IVPUSH STA (11:12)
[2017-07-07] MEDS ORDERED: Warfarin 5 MG Tab PO SCH (14:00)
--- NOTE | 2017-07-07 15:29 | MR ---
EXAMINATION: MRI of the brain with and without contrast. TECHNIQUE: Multiplanar and multisequence imaging of the brain without and following the administratio n of 10 mL of MultiHance. [id number] imaging obtained through the head and neck. Thick slab rotat ing MIP imaging obtained. HISTORY: TIA. FINDINGS: Cerebral hemispheres and the deep nuclei are without hemorrhage, mass, or edema. Mild generalized atr ophy. Tiny focus of cortical diffusion restriction within the right frontal lobe. Moderate focus of d iffusion restriction within the right cerebellum inferiorly and medially and a small area of acute di ffusion restriction within the medial left cerebellum. There is focal small area of encephalomalacia within the posterior right cerebral hemisphere. Moderate periventricular and subcortical white matter FLAIR hyperintensities are noted. There is no abnormal enhancement. No extraaxial collections or hemorrhage. Ventricular system is of normal size and configuration witho ut hydrocephalus. The carotid and basilar artery flow voids are intact. The otomastoid airspaces are clear. No internal auditory canal or cerebellopontine angle masses or e nhancement. Opacification of the left maxillary sinus. Globes, optic nerves, orbital apices, optic chiasm, optic tracts, and visual cortices are unremarkab le. The pituitary and sella turcica are unremarkable No meningeal enhancement. The craniocervical junction is unremarkable. No siderosis or evidence of vascular malformation. The calvarium is intact. MRA head: Mild atheromatous changes without significant stenosis noted within the distal internal car otid arteries. The anterior and middle cerebral arteries are normal. The anterior communicating arter y is diminutive. Persistent origin of the left ECA. Right [employer] is normal. The right posterior co mmunicating artery is normal. The left vertebral artery is dominant. MRA neck: Normal three-vessel origin on the aortic arch. Moderate motion artifact noted at the takeof f of the great vessels and within the region of the proximal carotid and vertebral arteries. The comm on carotid arteries otherwise demonstrate mild likely atheromatous narrowing. Multifocal stenosis is also noted within the left vertebral artery. There is likely severe stenosis within the proximal ICA with approximately 70% stenosis. Mild multifocal Stenosis noted within the right internal cerebral ca rotid artery. The distal vertebral arteries are not well characterized due to in plane imaging. IMPRESSION: 1. 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 2. Tiny focus of diffusion restriction along the right frontal cortex, possibly a tiny cortical infar ct. 3. Moderate small vessel ischemic changes. 4. Approximately 70% stenosis is noted within the proximal left internal carotid artery. 5. Multifocal mild to moderate atheromatous narrowing noted within the remaining carotid and vertebra l arteries. Most notable within the left vertebral artery. 6. Opacification of the left maxillary sinus. Correlate for sinusitis.
[2017-07-07] MEDS ORDERED: Heparin Sod,Pork In 0.45% Nacl 25,000 UNIT/500 ML IV.SOLN IV SCH (16:15)
[2017-07-07] MEDS ORDERED: Heparin Sodium 5,000 Units/ML Vial IVPUSH ONE (16:15)
[2017-07-08] MEDS: Insulin Aspart 100 Units/ML 3 ML Pen SUBCUT SCH ×2 (06:47→11:55)
[2017-07-08] MEDS ORDERED: Metoprolol Tartrate 50 MG Tab PO SCH (08:00)
[2017-07-08] MEDS: Aspirin 81 MG Tab.Chew PO SCH (08:22)
[2017-07-08] MEDS: Fluticasone Propionate Nasal Spray 16 GM Bottle NASBOTH SCH (08:22)
[2017-07-08] MEDS: atorvaSTATin 40 MG Tab PO SCH (08:22)
[2017-07-08] MEDS: Amoxicillin/Clavulanate K 875-125 MG Tab PO SCH (08:22)
[2017-07-08] MEDS: Fish Oil/Omega-3 Fatty Acids 1 Gm Cap PO SCH (08:22)
[2017-07-08] MEDS: Allopurinol 300 MG Tab PO SCH (08:23)
[2017-07-08] MEDS ORDERED: MV CA IRON MIN PO SCH (09:00)
[2017-07-08] MEDS ORDERED: LUT PO SCH (09:00)
[2017-07-08] MEDS ORDERED: [UNRECOGNIZED DRUG - OTHER] PO SCH (09:00)
[2017-07-08] MEDS ORDERED: LYCOPENE PO SCH (09:00)
--- NOTE | 2017-07-11 18:06 | ECHO ---
The echocardiogram report can be seen in this patient's EMR (electronic medical records) in the Reports section. The echocardiogram report has also been scanned into PACS and can be seen there. [facility]
== END 2017-07-08 13:20 | disposition home or self-care (01) | DRG 65 ==
LOC: MW.ED 14:39 → MW.MS 16:40
PROVIDERS: ADMIT Internal Medicine; ATTEND Internal Medicine
DX: G45.9 Transient cerebral ischemic attack, unspecified (principal); I63.9 Cerebral infarction, unspecified; N17.9 Acute kidney failure, unspecified; I48.91 Unspecified atrial fibrillation; R47.01 Aphasia; I10 Essential (primary) hypertension; E78.5 Hyperlipidemia, unspecified; I25.10 Atherosclerotic heart disease of native coronary artery without angina pectoris; I69.364 Other paralytic syndrome following cerebral infarction affecting left non-dominant side; F17.200 Nicotine dependence, unspecified, uncomplicated; Z79.899 Other long term (current) drug therapy; J32.9 Chronic sinusitis, unspecified
CPT/HCPCS: 36415; 70450; 71045; 80053; 83735; 84443; 84484; 85025; 85610; 93005; 99285; A9270; 70544; 70544-26; 70547; 70547-26; 70553; 70553-26; 80048; 80061; 81001; 82962; 83036; 83880; 85730; 93306; 93880; 93880-26; 97161-GP; A9577; J1644; J1815-GY; J2920; J7120

== ENCOUNTER 2018-04-20 15:17 | Inpatient (IN) | payer MEDICARE ==
[2018-04-20] MEDS ORDERED: Sodium Chloride 0.9% 1,000 ML IV ONE (15:40)
--- NOTE | 2018-04-20 15:41 | EDM.PDOC ---
ED HPI GENERAL MEDICAL PROBLEM - General Stated Complaint: UNK Time Seen by Provider: 04/20/18 15:34 Source of Information: Reports: Patient History Limitations: Reports: No Limitations - History of Present Illness INITIAL COMMENTS - FREE TEXT/NARRATIVE: HISTORY AND PHYSICAL: History of present illness: Patient is an 83-year-old male presents to the ED today with left hip pain following an injury that happened about a week to 2 weeks ago. He states that he fell on his hip and had pain so went and saw his primary care. He received an x-ray at that time and was told his hip was not fractured. He states that since then he has not been able to ambulate per his normal. He states that he has had episodes of low blood pressure and gets dizzy upon standing along with the pain in the left hip. He does live at home and has had difficulty with ambulation since the stroke that occurred 10 years ago. He is here today with his daughter who confirmed this. Patient states he was on warfarin at the time of the fall for A. fib but was told he no longer has A. fib and has not been on warfarin since. Patient does have an underlying induration of ADLs since the stroke. He is not able to use his legs and arms very efficiently per daughter. Patient denies fever, chills, nausea, vomiting, chest pain, diaphoresis, difficulties breathing, shortness of breath, or any other cardiovascular respiratory symptoms. Patient has a history of atrial fibrillation, hypertension , coronary artery disease, stroke (2010). Review of systems: As per history of present illness and below otherwise all systems reviewed and negative. Past medical history: As per history of present illness and as reviewed below otherwise noncontributory. Surgical history: As per history of present illness and as reviewed below otherwise noncontributory. Social history: See social history for further information Family history: As per history of present illness and as reviewed below otherwise noncontributory. Physical exam: General: Patient is alert, oriented, and in no acute distress. He is laying on his right side on exam table comfortably. HEENT: Atraumatic, normocephalic, pupils equal and reactive bilaterally, negative for conjunctival pallor or scleral icterus, mucous membranes moist, TMs normal bilaterally, throat clear, neck supple, nontender, trachea midline. No drooling or trismus noted. No meningeal signs. No hot potato voice noted. Lungs: Clear to auscultation, breath sounds equal bilaterally, chest nontender. Heart: S1S2, regular rate and rhythm without overt murmur Abdomen: Soft, nondistended, nontender. Negative for masses or hepatosplenomegaly. Negative for costovertebral tenderness. Pelvis: Stable nontender. Genitourinary: Deferred. Rectal: Deferred. Skin: Intact, warm, dry. No lesions or rashes noted. Extremities: There is a large bruise covering entire left buttox and 1/3 of the right buttox that is deep purple in color. Moderate pain to palpation of this area. Difficulty assessing range of motion/strength due to patient's ADLs prior to the fall. Patient does have full sensation of both legs. Otherwise, atraumatic, negative for cords or calf pain. Neurovascular unremarkable. Neuro: Awake, alert, oriented. Cranial nerves II through XII unremarkable. Cerebellum unremarkable. Motor and sensory unremarkable throughout. Exam nonfocal. Notes: Patient's blood pressure is low, a 500 and asked bolus given at this time. 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 Dr. Alexander reviewed this as well. Head CT shows moderate periventricular and subcortical white matter hypodensities nonspecific, however, likely represent small vessel ischemic changes. 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 No definite acute intracranial findings. Likely left maxillary sinusitis. Pelvic CT shows no acute osseous abnormality or intrapelvic findings. Probable 8 x 2.5 cm intramuscular hematoma within the left gluteal musculature with mild overlying soft tissue swelling. BUN and creatinine are elevated. Potassium is 6.1. Nonspecifc anemia. His vital signs are stable, no acute change with orthostatic vital signs. Patient states he is agreeable for admission. Dr French was consulted on this patient. He is aware of all testing results. He is agreeable to keeping this patient as inpatient with telemetry. Patient is aware and agreeable to plan of care. Denies any further questions or concerns at this time. Diagnostics: CBC, CMP, UA, INR/PT/PTT, EKG, troponin, Head CT, orthostatic vitals, UA, CXR 1 view, Therapeutics: NS, morphine Impression: 1. Hypotension 2. Hematoma, left gluteal musculature 3. Anemia, unspecified 4. Maxillary sinusitis, left 5. Hyperkalemia 6. Mild Renal Insufficiency Plan: Inpatient admission to Med/Surg with telemetry Definitive disposition and diagnosis as appropriate pending reevaluation and review of above. Left Hip Pain Score (Numeric/FACES): 8 - Related Data Allergies Allergy/AdvReac Type Severity Reaction Status Date / Time No Known Allergies Allergy Verified 04/20/18 16:22 Home Meds: Home Meds Allopurinol [Zyloprim] 300 mg PO DAILY 07/06/17 [History] Fexofenadine [Yohana] 60 mg PO BID PRN 07/06/17 [History] Fish Oil/[place]-3 Fatty Acids [Fish Oil 1,000 MG] 1 gm PO DAILY 07/06/17 [History ] Metoprolol Tartrate [Lopressor] 50 mg PO Q12H 07/06/17 [History] atorvaSTATin [Lipitor] 40 mg PO DAILY 07/06/17 [History] Fluticasone Propionate [Flonase] 1 spray NASBOTH BID #1 bottle 07/08/17 [Rx] Warfarin [Coumadin] 5 mg PO DAILY #30 tablet 07/08/17 [Rx] amLODIPine Besylate [Amlodipine Besylate] 5 mg PO DAILY 04/20/18 [History] Past Medical History Cardiovascular History: Reports: High Cholesterol, Hypertension Neurological History: Reports: CVA, TIA - Past Surgical History HEENT Surgical History: Reports: Cataract Surgery Social & Family History - Family History Family Medical History: Unobtainable - Caffeine Use Caffeine Use: Reports: Coffee Review of Systems - Review of Systems Review Of Systems: ROS reveals no pertinent complaints other than HPI. ED EXAM, GENERAL - Physical Exam Exam: See Below (see dictation) Course - Vital Signs Last Recorded V/S: Last Vital Signs Temp 97.0 F 04/20/18 16:11 Pulse 73 04/20/18 16:45 Resp 18 04/20/18 16:45 BP 97/67 04/20/18 16:45 Pulse Ox 94 L 04/20/18 16:45 Orthostatic Blood Pressure [ 112/60 Standing] Orthostatic Blood Pressure [ 121/59 Sitting] Orthostatic Blood Pressure [ 111/59 Supine] - Orders/Labs/Meds Orders: Active Orders 24 hr Category Date Time Status Admission Status [Patient Status] [ADT] Stat ADT 04/20/18 17:19 Active Patient Status [ADT] Routine ADT 04/20/18 17:17 Active Antiembolic Devices [RC] PER UNIT ROUTINE Care 04/20/18 17:24 Active Cardiac Monitoring [RC] CONTINUOUS Care 04/20/18 17:21 Active Communication, Vaccine [RC] PER UNIT ROUTINE Care 04/20/18 17:22 Active EKG Documentation Completion [RC] STAT Care 04/20/18 15:53 Active Orthostatic Vital Signs [RC] ASDIRECTED Care 04/20/18 15:48 Active Oxygen Therapy [RC] PRN Care 04/20/18 17:17 Active Up With Assistance [RC] ASDIRECTED Care 04/20/18 17:17 Active VTE/DVT Education [RC] PER UNIT ROUTINE Care 04/20/18 17:17 Active Vaccines to be Administered [RC] PER UNIT ROUTINE Care 04/20/18 17:22 Active Vital Signs [RC] Q4H Care 04/20/18 17:17 Active OT Evaluation and Treatment [CONS] Routine Cons 04/20/18 17:17 Active PT Evaluation and Treatment [CONS] Routine Cons 04/20/18 17:17 Active Heart Healthy Diet [DIET] Diet 04/20/18 Breakfast Active Chest 1V Frontal [CR] Stat Exams 04/20/18 16:47 Taken Hip wo Cont Lt [CT] Stat Exams 04/20/18 15:41 Stop Req CBC WITH AUTO DIFF [HEME] AM Lab 04/21/18 05:11 Ordered COMPREHENSIVE METABOLIC PN,CMP [CHEM] AM Lab 04/21/18 05:11 Ordered CPK [CREATINE KINASE,CK] [CHEM] Stat Lab 04/20/18 16:23 Received INR,PT,PROTHROMBIN TIME [COAG] AM Lab 04/21/18 05:11 Ordered MAGNESIUM [CHEM] Routine Lab 04/20/18 17:17 Ordered UA RFX WENDI AND CULT IF INDIC [URIN] Stat Lab 04/20/18 15:48 Ordered Acetaminophen [Tylenol] Med 04/20/18 17:17 Active 650 mg PO Q4H PRN Allopurinol [Zyloprim] Med 04/21/18 09:00 Active 300 mg PO DAILY Docusate Sodium [Colace] Med 04/20/18 17:17 Active 100 mg PO BID PRN Fexofenadine [Yohana] Med 04/20/18 17:24 Active 60 mg PO BID PRN Fluticasone Propionate [Flonase] Med 04/20/18 21:00 Active 0 gm NASBOTH BID Insulin Regular, Human [NovoLIN R] Med 04/21/18 17:26 Once 10 unit SUBCUT ONETIME ONE Metoprolol Tartrate [Lopressor] Med 04/20/18 17:30 Active 50 mg PO Q12H Ondansetron [Zofran ODT] Med 04/20/18 17:17 Active 4 mg PO Q4H PRN Sodium Chloride 0.9% [Normal Saline] 1,000 ml Med 04/20/18 17:30 Active IV ASDIRECTED Temazepam [Restoril] Med 04/20/18 17:17 Active 15 mg PO BEDTIME PRN Warfarin [Coumadin] Med 04/21/18 09:00 Active 5 mg PO DAILY amLODIPine [Norvasc] Med 04/21/18 09:00 Active 5 mg PO DAILY atorvaSTATin [Lipitor] Med 04/21/18 09:00 Active 40 mg PO DAILY oxyCODONE Med 04/20/18 17:17 Active 5 mg PO Q4H PRN GM Immunization Reflex [OM.PC] Click To Edit Oth 04/20/18 17:17 Ordered Sequential Compression Device [OM.PC] Per Unit Routine Oth 04/20/18 17:23 Ordered VTE Mechanical Contraindications [AST] Per Unit Routine Oth 04/20/18 17:17 Ordered VTE Pharmacological Contraindications [AST] Per Unit Oth 04/20/18 17:17 Ordered Routine Resuscitation Status Routine Resus Stat 04/20/18 17:17 Ordered Medication Orders Acetaminophen (Tylenol) 650 mg PO Q4H PRN PRN Reason: Pain (Mild 1-3)/fever Allopurinol (Zyloprim) 300 mg PO DAILY HUGH Amlodipine Besylate (Norvasc) 5 mg PO DAILY HUGH Docusate Sodium (Colace) 100 mg PO BID PRN PRN Reason: Constipation Fexofenadine HCl (Yohana) 60 mg PO BID PRN PRN Reason: Allergies Fluticasone Propionate (Flonase) 0 gm NASBOTH BID HUGH Sodium Chloride (Normal Saline) 1,000 mls @ 50 mls/hr IV ASDIRECTED HUGH Insulin Human Regular (Novolin R) 10 unit SUBCUT ONETIME ONE; Protocol Stop: 04/21/18 17:27 Metoprolol Tartrate (Lopressor) 50 mg PO Q12H HUGH Non-Formulary Medication (Atorvastatin [Lipitor]) 40 mg PO DAILY HUGH Ondansetron HCl (Zofran Odt) 4 mg PO Q4H PRN PRN Reason: nausea, able to take PO Oxycodone HCl (Oxycodone) 5 mg PO Q4H PRN PRN Reason: Pain (moderate 4-6) Temazepam (Restoril) 15 mg PO BEDTIME PRN PRN Reason: Sleep Warfarin Sodium (Coumadin) 5 mg PO DAILY HUGH Labs: Laboratory Tests 04/20/18 04/20/18 04/20/18 Range/Units 16:23 16:23 16:23 WBC 10.55 (4.0-11.0) K/uL RBC 3.49 L (4.50-5.90) M/uL Hgb 10.5 L (13.0-17.0) g/dL Hct 31.9 L (38.0-50.0) % MCV 91.4 (80.0-98.0) fL MCH 30.1 (27.0-32.0) pg MCHC 32.9 (31.0-37.0) g/dL RDW Std Deviation 53.0 (28.0-62.0) fl RDW Coeff of Nolan 16 H (11.0-15.0) % Plt Count 266 (150-400) K/uL MPV 9.90 (7.40-12.00) fL Add Manual Diff YES Neutrophils % (Manual) 70 (48.0-80.0) % Lymphocytes % (Manual) 24 (16.0-40.0) % Monocytes % (Manual) 5 (0.0-15.0) % Eosinophils % (Manual) 1 (0.0-7.0) % Nucleated RBC % 0.0 /100WBC Absolute Seg Neuts 7.4 H (1.4-5.7) Lymphocytes # (Manual) 2.5 H (0.6-2.4) Monocytes # (Manual) 0.5 (0.0-0.8) Eosinophils # (Manual) 0.1 (0.0-0.7) Nucleated RBCs # 0 K/uL INR 1.86 Sodium 138 (136-148) mmol/L Potassium 6.1 H (3.5-5.1) mmol/L Chloride 105 (98-107) mmol/L Carbon Dioxide 22.0 (21.0-32.0) mmol/L BUN 56 H (7.0-18.0) mg/dL Creatinine 2.7 H (0.8-1.3) mg/dL Est Cr Clr Drug Dosing 22.16 mL/min Estimated GFR (MDRD) 22.8 ml/min Glucose 93 (74-106) mg/dL Calcium 9.8 (8.5-10.1) mg/dL Total Bilirubin 0.9 (0.2-1.0) mg/dL AST 64 H (15-37) IU/L ALT 48 (14-63) IU/L Alkaline Phosphatase 124 H (46-116) U/L Troponin I (0.000-0.056) ng/mL Total Protein 7.2 (6.4-8.2) g/dL Albumin 3.3 L (3.4-5.0) g/dL Globulin 3.9 (2.6-4.0) g/dL Albumin/Globulin Ratio 0.9 (0.9-1.6) 04/20/18 Range/Units 16:23 WBC (4.0-11.0) K/uL RBC (4.50-5.90) M/uL Hgb (13.0-17.0) g/dL Hct (38.0-50.0) % MCV (80.0-98.0) fL MCH (27.0-32.0) pg MCHC (31.0-37.0) g/dL RDW Std Deviation (28.0-62.0) fl RDW Coeff of Nolan (11.0-15.0) % Plt Count (150-400) K/uL MPV (7.40-12.00) fL Add Manual Diff Neutrophils % (Manual) (48.0-80.0) % Lymphocytes % (Manual) (16.0-40.0) % Monocytes % (Manual) (0.0-15.0) % Eosinophils % (Manual) (0.0-7.0) % Nucleated RBC % /100WBC Absolute Seg Neuts (1.4-5.7) Lymphocytes # (Manual) (0.6-2.4) Monocytes # (Manual) (0.0-0.8) Eosinophils # (Manual) (0.0-0.7) Nucleated RBCs # K/uL INR Sodium (136-148) mmol/L Potassium (3.5-5.1) mmol/L Chloride (98-107) mmol/L Carbon Dioxide (21.0-32.0) mmol/L BUN (7.0-18.0) mg/dL Creatinine (0.8-1.3) mg/dL Est Cr Clr Drug Dosing mL/min Estimated GFR (MDRD) ml/min Glucose (74-106) mg/dL Calcium (8.5-10.1) mg/dL Total Bilirubin (0.2-1.0) mg/dL AST (15-37) IU/L ALT (14-63) IU/L Alkaline Phosphatase (46-116) U/L Troponin I < 0.050 (0.000-0.056) ng/mL Total Protein (6.4-8.2) g/dL Albumin (3.4-5.0) g/dL Globulin (2.6-4.0) g/dL Albumin/Globulin Ratio (0.9-1.6) Meds: Medications Generic Name Dose Route Start Last Admin Trade Name Freq PRN Reason Stop Dose Admin Acetaminophen 650 mg 04/20/18 17:17 Tylenol PO Q4H PRN Pain (Mild 1-3)/fever Allopurinol 300 mg 04/21/18 09:00 Zyloprim PO DAILY [facility] Amlodipine Besylate 5 mg 04/21/18 09:00 Norvasc PO DAILY HUGH Docusate Sodium 100 mg 04/20/18 17:17 Colace PO BID PRN Constipation Fexofenadine HCl 60 mg 04/20/18 17:24 Yohana PO BID PRN Allergies Fluticasone Propionate 0 gm 04/20/18 21:00 Flonase NASBOTH BID [facility] Sodium Chloride 1,000 mls @ 50 mls/hr 04/20/18 17:30 Normal Saline IV ASDIRECTED [facility] Insulin Human Regular 10 unit 04/21/18 17:26 Novolin R SUBCUT 04/21/18 17:27 ONETIME ONE Protocol Metoprolol Tartrate 50 mg 04/20/18 17:30 Lopressor PO Q12H HUGH Non-Formulary Medication 40 mg 04/21/18 09:00 Atorvastatin [Lipitor] PO DAILY HUGH Ondansetron HCl 4 mg 04/20/18 17:17 Zofran Odt PO Q4H PRN nausea, able to take PO Oxycodone HCl 5 mg 04/20/18 17:17 Oxycodone PO Q4H PRN Pain (moderate 4-6) Temazepam 15 mg 04/20/18 17:17 Restoril PO BEDTIME PRN Sleep Warfarin Sodium 5 mg 04/21/18 09:00 Coumadin PO DAILY HUGH Discontinued Medications Generic Name Dose Route Start Last Admin Trade Name Freq PRN Reason Stop Dose Admin Dextrose/Water 50 ml 04/20/18 17:26 Dextrose 50% In Water IVPUSH 04/20/18 17:27 ONETIME ONE Sodium Chloride 1,000 mls @ 999 mls/hr 04/20/18 15:40 04/20/18 16:31 Normal Saline IV 04/20/18 16:40 999 mls/hr STAT ONE Administration Influenza Virus Vaccine 180 mcg 04/20/18 17:17 Fluzone High-Dose Syringe IM 04/20/18 17:18 .ONCE ONE Morphine Sulfate 2 mg 04/20/18 15:45 04/20/18 17:21 Morphine IVPUSH 04/20/18 15:46 Not Given ONETIME ONE Sodium Polystyrene Sulfonate 15 gm 04/20/18 17:27 Kayexalate PO 04/20/18 17:28 ONETIME ONE Departure - Departure Time of Disposition: 17:32 Disposition: Admitted As Inpatient 68 Clinical Impression: Hyperkalemia, Renal insufficiency, Hematoma Hypotension Qualifiers: Hypotension type: unspecified hypotension type Qualified Code(s): I95.9 - Hypotension, unspecified Anemia Qualifiers: Anemia type: unspecified type Qualified Code(s): D64.9 - Anemia, unspecified Maxillary sinusitis Qualifiers: Chronicity: unspecified Qualified Code(s): 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 - Discharge Information - My Orders Last 24 Hours: My Active Orders 04/20/18 15:41 Hip wo Cont Lt [CT] Stat 04/20/18 15:48 Orthostatic Vital Signs [RC] ASDIRECTED UA RFX WENDI AND CULT IF INDIC [URIN] Stat 04/20/18 15:53 EKG Documentation Completion [RC] STAT 04/20/18 16:23 CPK [CREATINE KINASE,CK] [CHEM] Stat 04/20/18 16:47 Chest 1V Frontal [CR] Stat 04/20/18 17:19 Admission Status [Patient Status] [ADT] Stat - Assessment/Plan Last 24 Hours: My Active Orders 04/20/18 15:41 Hip wo Cont Lt [CT] Stat 04/20/18 15:48 Orthostatic Vital Signs [RC] ASDIRECTED UA RFX WENDI AND CULT IF INDIC [URIN] Stat 04/20/18 15:53 EKG Documentation Completion [RC] STAT 04/20/18 16:23 CPK [CREATINE KINASE,CK] [CHEM] Stat 04/20/18 16:47 Chest 1V Frontal [CR] Stat 04/20/18 17:19 Admission Status [Patient Status] [ADT] Stat
[2018-04-20] MEDS ORDERED: Morphine 2 MG/ML Syringe IVPUSH ONE (15:45)
--- NOTE | 2018-04-20 16:23 | CT ---
EXAMINATION: Non contrast CT head. Coronal and sagittal reformats. HISTORY: Pain COMPARISON: 07/07/2017 FINDINGS: Periventricular and subcortical white matter hypodensities are again noted. There is encephalomalacia within the right cerebellar hemisphere. No hypoattenuation changes in the major vascular territories to suggest acute infarct. No abnormal intracranial calcifications are detected. No evidence of substantial vascular calcifications. There is opacification of the left maxillary sinus with an air-fluid level. Remaining paranasal sinuses and mastoid air cells appear clear. Orbits and globes are symmetric. Pituitary fossa appears unremarkable. The calvarium is intact. No evidence of skull fracture. IMPRESSION: 1. Moderate periventricular and subcortical white matter hypodensities, nonspecific however likely represent small vessel ischemic changes. 2. 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 3. No definite acute intracranial findings. 4. Likely left maxillary sinusitis.
--- NOTE | 2018-04-20 16:27 | CT ---
EXAMINATION: CT pelvis without contrast HISTORY: Injury COMPARISON: Radiographs dated 04/05/2018 TECHNIQUE: Axial CT imaging obtained through the pelvis without contrast. Coronal and sagittal reconstructions obtained. FINDINGS: The large and small bowel are normal in caliber without evidence of obstruction. Visualized large and small bowel are normal in caliber. No free pelvic fluid or pelvic lymphadenopathy. Minimal fat-containing right inguinal hernia. Urinary bladder is normal. Atheromatous changes noted within the aorta, iliac, and femoral arteries. Mild soft tissue edema overlying the left gluteal region. There is an 8 x 2.5 cm region of thickening of the left gluteal musculature, likely a hematoma. No suspicious osseous abnormality or fracture identified. Mild degenerative changes within the hips, lumbar spine and SI joints. IMPRESSION: 1. No acute osseous abnormality or intrapelvic finding. 2. Probable 8 x 2.5 cm intramuscular hematoma within the left gluteal musculature with mild overlying soft tissue swelling.
[2018-04-20] MEDS ORDERED: Ondansetron 4 MG Tab.DIS PO PRN (17:17)
[2018-04-20] MEDS ORDERED: Temazepam 15 MG Cap PO PRN (17:17)
[2018-04-20] MEDS ORDERED: Docusate Sodium 100 MG Cap PO PRN (17:17)
[2018-04-20] MEDS ORDERED: Acetaminophen 325 MG Tab PO PRN (17:17)
[2018-04-20] MEDS ORDERED: oxyCODONE 5 MG Tab PO PRN (17:17)
[2018-04-20] MEDS ORDERED: Insulin Regular, Human 100 Units/ML 10 ML Vial IVPUSH ONE (17:26)
[2018-04-20] MEDS ORDERED: 50% Dextrose in Water 50 ML Syringe IVPUSH ONE (17:26)
[2018-04-20] MEDS ORDERED: Sodium Polystyrene Sulfonate 15 GM/60 ML Susp 60 ML Bot PO ONE ×2 (17:27→22:57)
--- NOTE | 2018-04-20 17:32 | PCM.HP ---
H&P History of Present Illness - General Date of Service: 04/20/18 Admit Problem/Dx: Admission Diagnosis/Problem Admission Diagnosis/Problem Hyperkalemia, diminished renal excretion Source of Information: Patient, Family History Limitations: Reports: No Limitations - History of Present Illness Initial Comments - Free Text/Narative: The patient is an 83-year-old gentleman who presented to the emergency department today with a complaint of left-sided hip pain. The patient says that it has been interfering with his ability to ambulate. He also has been using a wheelchair more at home. The patient says that the injury happened approximately 2 weeks ago. He had been evaluated by his primary care physician. The patient also had noted that he had a rather large bruise to his left hip area. Previous imaging was negative for fractures. The patient has been taking Coumadin for atrial fibrillation. The patient recently has moved from [place] to be with family. The patient also says that he has been coming more and more weak. Easily fatigued. The patient also has been noted to be hyperkalemic in the emergency department as well as a history of chronic kidney disease. The patient has denied any pain. No dizziness or lightheadedness. Onset of Symptoms: Reports: Gradual Duration of Symptoms: Reports: Week(s): Location: Reports: Lower Extremity, Left Quality: Reports: Ache, Throbbing Improves with: Reports: Rest Worsens with: Reports: Movement Context: Reports: Trauma Associated Symptoms: Reports: No Other Symptoms Left Hip Pain Score (Numeric/FACES): 8 - Related Data Allergies/Adverse Reactions: Allergies Allergy/AdvReac Type Severity Reaction Status Date / Time No Known Allergies Allergy Verified 04/20/18 16:22 Home Medications: Home Meds Allopurinol [Zyloprim] 300 mg PO DAILY 07/06/17 [History] Fexofenadine [Yohana] 60 mg PO BID PRN 07/06/17 [History] Fish Oil/Coral-3 Fatty Acids [Fish Oil 1,000 MG] 1 gm PO DAILY 07/06/17 [History ] Metoprolol Tartrate [Lopressor] 50 mg PO Q12H 07/06/17 [History] atorvaSTATin [Lipitor] 40 mg PO DAILY 07/06/17 [History] Fluticasone Propionate [Flonase] 1 spray NASBOTH BID #1 bottle 07/08/17 [Rx] Warfarin [Coumadin] 5 mg PO DAILY #30 tablet 07/08/17 [Rx] amLODIPine Besylate [Amlodipine Besylate] 5 mg PO DAILY 04/20/18 [History] Past Medical History HEENT History: Reports: None Cardiovascular History: Reports: Afib, High Cholesterol, Hypertension Respiratory History: Reports: None Gastrointestinal History: Reports: None Genitourinary History: Reports: Other (See Below) Other Genitourinary History: Stage 3 CKD Musculoskeletal History: Reports: None Neurological History: Reports: CVA, TIA Psychiatric History: Reports: None Endocrine/Metabolic History: Reports: None Hematologic History: Reports: None - Past Surgical History HEENT Surgical History: Reports: Cataract Surgery Social & Family History - Family History Family Medical History: Unobtainable - Tobacco Use Smoking Status *Q: Current Every Day Smoker Tobacco Use Within Last Twelve Months: Cigarettes - Caffeine Use Caffeine Use: Reports: Coffee - Recreational Drug Use Recreational Drug Use: No - Living Situation & Occupation Living situation: Reports: , with Family Occupation: Retired H&P Review of Systems - Review of Systems: Review Of Systems: See Below General: Reports: Malaise, Weakness HEENT: Reports: Hearing Changes Pulmonary: Reports: No Symptoms Cardiovascular: Reports: No Symptoms Gastrointestinal: Reports: No Symptoms Genitourinary: Reports: No Symptoms Musculoskeletal: Reports: Leg Pain Skin: Reports: Bruising Psychiatric: Reports: No Symptoms Neurological: Reports: No Symptoms Hematologic/Lymphatic: Reports: No Symptoms Immunologic: Reports: No Symptoms Exam - Exam Exam: See Below - Vital Signs Vital Signs: Last Vital Signs Temp 36.1 C 04/20/18 16:11 Pulse 73 04/20/18 16:45 Resp 18 04/20/18 16:45 BP 97/67 04/20/18 16:45 Pulse Ox 94 L 04/20/18 16:45 Orthostatic Blood Pressure [ 112/60 Standing] Orthostatic Blood Pressure [ 121/59 Sitting] Orthostatic Blood Pressure [ 111/59 Supine] Weight: 81.647 kg - Exam Quality Assessment: No: Supplemental Oxygen General: Alert, Oriented, Cooperative HEENT: Conjunctiva Clear, EACs Clear, EOMI, Hearing Intact, Mucosa Moist & Wendell , Pupils Equal, Pupils Reactive Neck: Supple, Trachea Midline Lungs: Clear to Auscultation, Normal Respiratory Effort Cardiovascular: Regular Rate, Normal S1, Normal S2, Irregular Rhythm, Systolic Murmur (III/) GI/Abdominal Exam: Normal Bowel Sounds, Soft, No Distention (Male) Exam: Deferred Rectal (Males) Exam: Deferred Back Exam: Normal Inspection (Age-related changes), Full Range of Motion Extremities: Normal Inspection, Normal Range of Motion, No Pedal Edema, Leg Pain (Predominantly left hip) Skin: Warm, Dry, Ecchymosis (Significant bruise to left hip) Neurological: Cranial Nerves Intact Neuro Extensive - Mental Status: Alert, Oriented x3 Neuro Extensive - Motor, Sensory, Reflexes: CN II-XII Intact Psychiatric: Alert, Normal Affect, Normal Mood - Patient Data Lab Results Last 24 hrs: Laboratory Results - last 24 hr 04/20/18 04/20/18 04/20/18 Range/Units 16:23 16:23 16:23 WBC 10.55 (4.0-11.0) K/uL RBC 3.49 L (4.50-5.90) M/uL Hgb 10.5 L (13.0-17.0) g/dL Hct 31.9 L (38.0-50.0) % MCV 91.4 (80.0-98.0) fL MCH 30.1 (27.0-32.0) pg MCHC 32.9 (31.0-37.0) g/dL RDW Std Deviation 53.0 (28.0-62.0) fl RDW Coeff of Nolan 16 H (11.0-15.0) % Plt Count 266 (150-400) K/uL MPV 9.90 (7.40-12.00) fL Add Manual Diff YES Neutrophils % (Manual) 70 (48.0-80.0) % Lymphocytes % (Manual) 24 (16.0-40.0) % Monocytes % (Manual) 5 (0.0-15.0) % Eosinophils % (Manual) 1 (0.0-7.0) % Nucleated RBC % 0.0 /100WBC Absolute Seg Neuts 7.4 H (1.4-5.7) Lymphocytes # (Manual) 2.5 H (0.6-2.4) Monocytes # (Manual) 0.5 (0.0-0.8) Eosinophils # (Manual) 0.1 (0.0-0.7) Nucleated RBCs # 0 K/uL INR 1.86 Sodium 138 (136-148) mmol/L Potassium 6.1 H (3.5-5.1) mmol/L Chloride 105 (98-107) mmol/L Carbon Dioxide 22.0 (21.0-32.0) mmol/L BUN 56 H (7.0-18.0) mg/dL Creatinine 2.7 H (0.8-1.3) mg/dL Est Cr Clr Drug Dosing 22.16 mL/min Estimated GFR (MDRD) 22.8 ml/min Glucose 93 (74-106) mg/dL Calcium 9.8 (8.5-10.1) mg/dL Total Bilirubin 0.9 (0.2-1.0) mg/dL AST 64 H (15-37) IU/L ALT 48 (14-63) IU/L Alkaline Phosphatase 124 H (46-116) U/L Troponin I (0.000-0.056) ng/mL Total Protein 7.2 (6.4-8.2) g/dL Albumin 3.3 L (3.4-5.0) g/dL Globulin 3.9 (2.6-4.0) g/dL Albumin/Globulin Ratio 0.9 (0.9-1.6) 04/20/18 Range/Units 16:23 WBC (4.0-11.0) K/uL RBC (4.50-5.90) M/uL Hgb (13.0-17.0) g/dL Hct (38.0-50.0) % MCV (80.0-98.0) fL MCH (27.0-32.0) pg MCHC (31.0-37.0) g/dL RDW Std Deviation (28.0-62.0) fl RDW Coeff of Nolan (11.0-15.0) % Plt Count (150-400) K/uL MPV (7.40-12.00) fL Add Manual Diff Neutrophils % (Manual) (48.0-80.0) % Lymphocytes % (Manual) (16.0-40.0) % Monocytes % (Manual) (0.0-15.0) % Eosinophils % (Manual) (0.0-7.0) % Nucleated RBC % /100WBC Absolute Seg Neuts (1.4-5.7) Lymphocytes # (Manual) (0.6-2.4) Monocytes # (Manual) (0.0-0.8) Eosinophils # (Manual) (0.0-0.7) Nucleated RBCs # K/uL INR Sodium (136-148) mmol/L Potassium (3.5-5.1) mmol/L Chloride (98-107) mmol/L Carbon Dioxide (21.0-32.0) mmol/L BUN (7.0-18.0) mg/dL Creatinine (0.8-1.3) mg/dL Est Cr Clr Drug Dosing mL/min Estimated GFR (MDRD) ml/min Glucose (74-106) mg/dL Calcium (8.5-10.1) mg/dL Total Bilirubin (0.2-1.0) mg/dL AST (15-37) IU/L ALT (14-63) IU/L Alkaline Phosphatase (46-116) U/L Troponin I < 0.050 (0.000-0.056) ng/mL Total Protein (6.4-8.2) g/dL Albumin (3.4-5.0) g/dL Globulin (2.6-4.0) g/dL Albumin/Globulin Ratio (0.9-1.6) Result Diagrams: 04/20/18 16:23 04/20/18 16:23 *Q Meaningful Use (ADM) - VTE *Q VTE Mechanical Contraindications *Q: At Risk for Falls VTE Pharmacological Contraindications *Q: Risk of Bleeding - Problem List (1) Hyperkalemia SNOMED Code(s): 32695662 ICD Code: E87.5 - HYPERKALEMIA Status: Acute Priority: High Current Visit: Yes (2) Chronic kidney disease, stage 3 (moderate) SNOMED Code(s): 331710982 ICD Code: N18.3 - CHRONIC KIDNEY DISEASE, STAGE 3 (MODERATE) Status: Chronic Priority: High Current Visit: Yes (3) Atrial fibrillation SNOMED Code(s): 42488304 ICD Code: I48.91 - UNSPECIFIED ATRIAL FIBRILLATION Status: Chronic Priority: Medium Current Visit: Yes Qualifiers: Atrial fibrillation type: chronic Qualified Code(s): I48.2 - Chronic atrial fibrillation (4) Anemia SNOMED Code(s): 603454756 ICD Code: D64.9 - ANEMIA, UNSPECIFIED Status: Acute Priority: High Current Visit: Yes Qualifiers: Anemia type: due to chronic kidney disease Chronic kidney disease stage: stage 3 (moderate) Qualified Code(s): N18.3 - Chronic kidney disease, stage 3 (moderate); D63.1 - Anemia in chronic kidney disease (5) Hematoma SNOMED Code(s): 855706941 ICD Code: T14.8XXA - OTHER INJURY OF UNSPECIFIED BODY REGION, INITIAL ENCOUNTER Status: Acute Priority: High Current Visit: Yes Problem List Initiated/Reviewed/Updated: Yes Orders Last 24hrs: Active Orders 24 hr Category Date Time Status Admission Status [Patient Status] [ADT] Stat ADT 04/20/18 17:19 Active Patient Status [ADT] Routine ADT 04/20/18 17:17 Active Antiembolic Devices [RC] PER UNIT ROUTINE Care 04/20/18 17:24 Active Cardiac Monitoring [RC] CONTINUOUS Care 04/20/18 17:21 Active Communication, Vaccine [RC] PER UNIT ROUTINE Care 04/20/18 17:22 Active EKG Documentation Completion [RC] STAT Care 04/20/18 15:53 Active Orthostatic Vital Signs [RC] ASDIRECTED Care 04/20/18 15:48 Active Oxygen Therapy [RC] PRN Care 04/20/18 17:17 Active Up With Assistance [RC] ASDIRECTED Care 04/20/18 17:17 Active VTE/DVT Education [RC] PER UNIT ROUTINE Care 04/20/18 17:17 Active Vaccines to be Administered [RC] PER UNIT ROUTINE Care 04/20/18 17:22 Active Vital Signs [RC] Q4H Care 04/20/18 17:17 Active OT Evaluation and Treatment [CONS] Routine Cons 04/20/18 17:17 Active PT Evaluation and Treatment [CONS] Routine Cons 04/20/18 17:17 Active Heart Healthy Diet [DIET] Diet 04/20/18 Breakfast Active Chest 1V Frontal [CR] Stat Exams 04/20/18 16:47 Taken Hip wo Cont Lt [CT] Stat Exams 04/20/18 15:41 Stop Req CBC WITH AUTO DIFF [HEME] AM Lab 04/21/18 05:11 Ordered COMPREHENSIVE METABOLIC PN,CMP [CHEM] AM Lab 04/21/18 05:11 Ordered CPK [CREATINE KINASE,CK] [CHEM] Stat Lab 04/20/18 16:23 Received INR,PT,PROTHROMBIN TIME [COAG] AM Lab 04/21/18 05:11 Ordered MAGNESIUM [CHEM] Routine Lab 04/20/18 17:17 Ordered UA RFX WENDI AND CULT IF INDIC [URIN] Stat Lab 04/20/18 15:48 Ordered Acetaminophen [Tylenol] Med 04/20/18 17:17 Active 650 mg PO Q4H PRN Allopurinol [Zyloprim] Med 04/21/18 09:00 Active 300 mg PO DAILY Docusate Sodium [Colace] Med 04/20/18 17:17 Active 100 mg PO BID PRN Fexofenadine [Yohana] Med 04/20/18 17:24 Active 60 mg PO BID PRN Fluticasone Propionate [Flonase] Med 04/20/18 21:00 Active 0 gm NASBOTH BID Insulin Regular, Human [NovoLIN R] Med 04/21/18 17:26 Once 10 unit SUBCUT ONETIME ONE Metoprolol Tartrate [Lopressor] Med 04/20/18 17:30 Active 50 mg PO Q12H Ondansetron [Zofran ODT] Med 04/20/18 17:17 Active 4 mg PO Q4H PRN Sodium Chloride 0.9% [Normal Saline] 1,000 ml Med 04/20/18 17:30 Active IV ASDIRECTED Temazepam [Restoril] Med 04/20/18 17:17 Active 15 mg PO BEDTIME PRN Warfarin [Coumadin] Med 04/21/18 09:00 Active 5 mg PO DAILY amLODIPine [Norvasc] Med 04/21/18 09:00 Active 5 mg PO DAILY atorvaSTATin [Lipitor] Med 04/21/18 09:00 Active 40 mg PO DAILY oxyCODONE Med 04/20/18 17:17 Active 5 mg PO Q4H PRN GM Immunization Reflex [OM.PC] Click To Edit Oth 04/20/18 17:17 Ordered Sequential Compression Device [OM.PC] Per Unit Routine Oth 04/20/18 17:23 Ordered VTE Mechanical Contraindications [AST] Per Unit Routine Oth 04/20/18 17:17 Ordered VTE Pharmacological Contraindications [AST] Per Unit Oth 04/20/18 17:17 Ordered Routine Resuscitation Status Routine Resus Stat 04/20/18 17:17 Ordered Medication Orders Acetaminophen (Tylenol) 650 mg PO Q4H PRN PRN Reason: Pain (Mild 1-3)/fever Allopurinol (Zyloprim) 300 mg PO DAILY [facility] Amlodipine Besylate (Norvasc) 5 mg PO DAILY [facility] Docusate Sodium (Colace) 100 mg PO BID PRN PRN Reason: Constipation Fexofenadine HCl (Yohana) 60 mg PO BID PRN PRN Reason: Allergies Fluticasone Propionate (Flonase) 0 gm NASBOTH BID [facility] Sodium Chloride (Normal Saline) 1,000 mls @ 50 mls/hr IV ASDIRECTED [facility] Insulin Human Regular (Novolin R) 10 unit SUBCUT ONETIME ONE; Protocol Stop: 04/21/18 17:27 Metoprolol Tartrate (Lopressor) 50 mg PO Q12H [facility] Non-Formulary Medication (Atorvastatin [Lipitor]) 40 mg PO DAILY [facility] Ondansetron HCl (Zofran Odt) 4 mg PO Q4H PRN PRN Reason: nausea, able to take PO Oxycodone HCl (Oxycodone) 5 mg PO Q4H PRN PRN Reason: Pain (moderate 4-6) Temazepam (Restoril) 15 mg PO BEDTIME PRN PRN Reason: Sleep Warfarin Sodium (Coumadin) 5 mg PO DAILY [facility] Assessment/Plan Comment:: The patient is an 83-year-old gentleman who has been admitted to inpatient. In the emergency department I ordered one amp of D50 along with 10 units of insulin to help with the patient's hyperkalemia. He also had been given 1 dose of Kayexalate. The patient will be placed on telemetry. I've also ordered PT OT secondary to his weakness and worsening ability to ambulate. There was also concerns by the family members with regards to been able to complete his ADLs. The patient is also noted to have minimal elevation of his CPK and this will be monitored but does not rise to a level of rhabdomyolysis. This is secondary to the patient's hematoma of his left hip. The predominant concern is his hyperkalemia. I've ordered repeat potassium in 4 hours. The patient also has been anemic and his current hemoglobin is at 10.5 g/dL. This will be monitored with repeat blood test and if his hemoglobin drops below 7.0 g/dL we'll consider transfusion. The anemia is secondary to his chronic kidney disease. We' ll monitor his BUN/creatinine. The patient is to have vital signs every 4 hours. I've also ordered the patient to continue with his current 5 mg warfarin dose for DVT prophylaxis and he is currently sub-therapeutic with his INR and this will be rechecked. The patient is also encouraged to ambulate with assistance.
--- NOTE | 2018-04-20 17:41 | CR ---
INDICATION: Dizziness. COMPARISON: 06 July 2017. TECHNIQUE: One view. FINDINGS: Reticular nodular density at the left base new from before and likely some atelectasis or potentially pneumonia. No discrete nodule. Pulmonary vascularity and cardiomediastinal silhouette are within normal limits. Impression : Patchy and reticular left base airspace opacity may be atelectasis or pneumonia. Correlation with auscultation recommended. Consider follow up with two-view chest or CT if there is significant clinical concern. Dictated by Jac Ford MD @ Apr 20 2018 5:38PM Signed by Dr. Jac Ford @ Apr 20 2018 5:39PM
[2018-04-20] MEDS: Sodium Chloride 0.9% 1,000 ML IV SCH (18:56)
[2018-04-20] MEDS: Metoprolol Tartrate 50 MG Tab PO SCH (20:16)
[2018-04-20] MEDS: Fluticasone Propionate Nasal Spray 16 GM Bottle NASBOTH SCH (20:35)
[2018-04-21] MEDS: Metoprolol Tartrate 50 MG Tab PO SCH ×2 (06:06→18:42)
[2018-04-21] MEDS ORDERED: Warfarin 5 MG Tab PO SCH (09:00)
[2018-04-21] MEDS: Fluticasone Propionate Nasal Spray 16 GM Bottle NASBOTH SCH ×2 (09:38→21:00)
[2018-04-21] MEDS: atorvaSTATin 40 MG Tab PO SCH (09:40)
[2018-04-21] MEDS: Allopurinol 300 MG Tab PO SCH (09:40)
[2018-04-21] MEDS: amLODIPine 5 MG Tab PO SCH (09:45)
--- NOTE | 2018-04-21 10:21 | PCM.PN ---
<Chester Farr - Last Filed: 04/21/18 10:16> - General Info Date of Service: 04/21/18 Subjective Update: Complains of pain at the hip which he thinks is getting better. Denies any shortness of breath, chest pain, nausea or vomiting. - Review of Systems General: Reports: Other (negative except for hpi) - Patient Data Vitals - Most Recent: Last Vital Signs Temp 36.4 C 04/21/18 08:00 Pulse 83 04/21/18 08:00 Resp 18 04/21/18 08:00 BP 105/59 L 04/21/18 09:45 Pulse Ox 94 L 04/21/18 08:00 Orthostatic Blood Pressure [ 112/60 Standing] Orthostatic Blood Pressure [ 121/59 Sitting] Orthostatic Blood Pressure [ 111/59 Supine] Weight - Most Recent: 74.843 kg I&O - Last 24 Hours: Intake & Output 04/20/18 04/21/18 04/21/18 22:59 06:59 14:59 Intake Total 250 Balance 250 Lab Results Last 24 Hours: Laboratory Results - last 24 hr 04/20/18 04/20/18 04/20/18 Range/Units 16:23 16:23 16:23 WBC 10.55 (4.0-11.0) K/uL RBC 3.49 L (4.50-5.90) M/uL Hgb 10.5 L (13.0-17.0) g/dL Hct 31.9 L (38.0-50.0) % MCV 91.4 (80.0-98.0) fL MCH 30.1 (27.0-32.0) pg MCHC 32.9 (31.0-37.0) g/dL RDW Std Deviation 53.0 (28.0-62.0) fl RDW Coeff of Nolan 16 H (11.0-15.0) % Plt Count 266 (150-400) K/uL MPV 9.90 (7.40-12.00) fL Neut % (Auto) (48.0-80.0) % Lymph % (Auto) (16.0-40.0) % [place] % (Auto) (0.0-15.0) % Eos % (Auto) (0.0-7.0) % Baso % (Auto) (0.0-1.5) % Neut # (Auto) (1.4-5.7) K/uL Lymph # (Auto) (0.6-2.4) K/uL [place] # (Auto) (0.0-0.8) K/uL Eos # (Auto) (0.0-0.7) K/uL Baso # (Auto) (0.0-0.1) K/uL Add Manual Diff YES Neutrophils % (Manual) 70 (48.0-80.0) % Lymphocytes % (Manual) 24 (16.0-40.0) % Monocytes % (Manual) 5 (0.0-15.0) % Eosinophils % (Manual) 1 (0.0-7.0) % Nucleated RBC % 0.0 /100WBC Absolute Seg Neuts 7.4 H (1.4-5.7) Lymphocytes # (Manual) 2.5 H (0.6-2.4) Monocytes # (Manual) 0.5 (0.0-0.8) Eosinophils # (Manual) 0.1 (0.0-0.7) Nucleated RBCs # 0 K/uL INR 1.86 Sodium 138 (136-148) mmol/L Potassium 6.1 H (3.5-5.1) mmol/L Chloride 105 (98-107) mmol/L Carbon Dioxide 22.0 (21.0-32.0) mmol/L BUN 56 H (7.0-18.0) mg/dL Creatinine 2.7 H (0.8-1.3) mg/dL Est Cr Clr Drug Dosing 22.16 mL/min Estimated GFR (MDRD) 22.8 ml/min Glucose 93 (74-106) mg/dL POC Glucose (60-110) mg/dL Calcium 9.8 (8.5-10.1) mg/dL Magnesium (1.8-2.4) mg/dL Total Bilirubin 0.9 (0.2-1.0) mg/dL AST 64 H (15-37) IU/L ALT 48 (14-63) IU/L Alkaline Phosphatase 124 H (46-116) U/L Creatine Kinase (26-308) U/L Troponin I (0.000-0.056) ng/mL Total Protein 7.2 (6.4-8.2) g/dL Albumin 3.3 L (3.4-5.0) g/dL Globulin 3.9 (2.6-4.0) g/dL Albumin/Globulin Ratio 0.9 (0.9-1.6) 04/20/18 04/20/18 04/20/18 Range/Units 16:23 16:23 16:23 WBC (4.0-11.0) K/uL RBC (4.50-5.90) M/uL Hgb (13.0-17.0) g/dL Hct (38.0-50.0) % MCV (80.0-98.0) fL MCH (27.0-32.0) pg MCHC (31.0-37.0) g/dL RDW Std Deviation (28.0-62.0) fl RDW Coeff of Nolan (11.0-15.0) % Plt Count (150-400) K/uL MPV (7.40-12.00) fL Neut % (Auto) (48.0-80.0) % Lymph % (Auto) (16.0-40.0) % [place] % (Auto) (0.0-15.0) % Eos % (Auto) (0.0-7.0) % Baso % (Auto) (0.0-1.5) % Neut # (Auto) (1.4-5.7) K/uL Lymph # (Auto) (0.6-2.4) K/uL [place] # (Auto) (0.0-0.8) K/uL Eos # (Auto) (0.0-0.7) K/uL Baso # (Auto) (0.0-0.1) K/uL Add Manual Diff Neutrophils % (Manual) (48.0-80.0) % Lymphocytes % (Manual) (16.0-40.0) % Monocytes % (Manual) (0.0-15.0) % Eosinophils % (Manual) (0.0-7.0) % Nucleated RBC % /100WBC Absolute Seg Neuts (1.4-5.7) Lymphocytes # (Manual) (0.6-2.4) Monocytes # (Manual) (0.0-0.8) Eosinophils # (Manual) (0.0-0.7) Nucleated RBCs # K/uL INR Sodium (136-148) mmol/L Potassium (3.5-5.1) mmol/L Chloride (98-107) mmol/L Carbon Dioxide (21.0-32.0) mmol/L BUN (7.0-18.0) mg/dL Creatinine (0.8-1.3) mg/dL Est Cr Clr Drug Dosing mL/min Estimated GFR (MDRD) ml/min Glucose (74-106) mg/dL POC Glucose (60-110) mg/dL Calcium (8.5-10.1) mg/dL Magnesium 2.1 (1.8-2.4) mg/dL Total Bilirubin (0.2-1.0) mg/dL AST (15-37) IU/L ALT (14-63) IU/L Alkaline Phosphatase (46-116) U/L Creatine Kinase 621 H (26-308) U/L Troponin I < 0.050 (0.000-0.056) ng/mL Total Protein (6.4-8.2) g/dL Albumin (3.4-5.0) g/dL Globulin (2.6-4.0) g/dL Albumin/Globulin Ratio (0.9-1.6) 04/20/18 04/20/18 04/21/18 Range/Units 17:48 20:57 05:10 WBC 8.45 (4.0-11.0) K/uL RBC 3.17 L (4.50-5.90) M/uL Hgb 9.4 L (13.0-17.0) g/dL Hct 29.1 L (38.0-50.0) % MCV 91.8 (80.0-98.0) fL MCH 29.7 (27.0-32.0) pg MCHC 32.3 (31.0-37.0) g/dL RDW Std Deviation 52.7 (28.0-62.0) fl RDW Coeff of Nolan 16 H (11.0-15.0) % Plt Count 256 (150-400) K/uL MPV 9.90 (7.40-12.00) fL Neut % (Auto) 55.6 (48.0-80.0) % Lymph % (Auto) 31.8 (16.0-40.0) % [place] % (Auto) 8.6 (0.0-15.0) % Eos % (Auto) 3.3 (0.0-7.0) % Baso % (Auto) 0.7 (0.0-1.5) % Neut # (Auto) 4.7 (1.4-5.7) K/uL Lymph # (Auto) 2.7 H (0.6-2.4) K/uL [place] # (Auto) 0.7 (0.0-0.8) K/uL Eos # (Auto) 0.3 (0.0-0.7) K/uL Baso # (Auto) 0.1 (0.0-0.1) K/uL Add Manual Diff Neutrophils % (Manual) (48.0-80.0) % Lymphocytes % (Manual) (16.0-40.0) % Monocytes % (Manual) (0.0-15.0) % Eosinophils % (Manual) (0.0-7.0) % Nucleated RBC % 0.0 /100WBC Absolute Seg Neuts (1.4-5.7) Lymphocytes # (Manual) (0.6-2.4) Monocytes # (Manual) (0.0-0.8) Eosinophils # (Manual) (0.0-0.7) Nucleated RBCs # 0 K/uL INR Sodium 140 (136-148) mmol/L Potassium 5.2 H (3.5-5.1) mmol/L Chloride 105 (98-107) mmol/L Carbon Dioxide 22.6 (21.0-32.0) mmol/L BUN 54 H (7.0-18.0) mg/dL Creatinine 2.7 H (0.8-1.3) mg/dL Est Cr Clr Drug Dosing 22.16 mL/min Estimated GFR (MDRD) 22.8 ml/min Glucose 91 (74-106) mg/dL POC Glucose 83 (60-110) mg/dL Calcium 9.6 (8.5-10.1) mg/dL Magnesium (1.8-2.4) mg/dL Total Bilirubin (0.2-1.0) mg/dL AST (15-37) IU/L ALT (14-63) IU/L Alkaline Phosphatase (46-116) U/L Creatine Kinase (26-308) U/L Troponin I (0.000-0.056) ng/mL Total Protein (6.4-8.2) g/dL Albumin (3.4-5.0) g/dL Globulin (2.6-4.0) g/dL Albumin/Globulin Ratio (0.9-1.6) 04/21/18 04/21/18 04/21/18 Range/Units 05:10 05:10 05:10 WBC (4.0-11.0) K/uL RBC (4.50-5.90) M/uL Hgb (13.0-17.0) g/dL Hct (38.0-50.0) % MCV (80.0-98.0) fL MCH (27.0-32.0) pg MCHC (31.0-37.0) g/dL RDW Std Deviation (28.0-62.0) fl RDW Coeff of Nolan (11.0-15.0) % Plt Count (150-400) K/uL MPV (7.40-12.00) fL Neut % (Auto) (48.0-80.0) % Lymph % (Auto) (16.0-40.0) % [place] % (Auto) (0.0-15.0) % Eos % (Auto) (0.0-7.0) % Baso % (Auto) (0.0-1.5) % Neut # (Auto) (1.4-5.7) K/uL Lymph # (Auto) (0.6-2.4) K/uL [place] # (Auto) (0.0-0.8) K/uL Eos # (Auto) (0.0-0.7) K/uL Baso # (Auto) (0.0-0.1) K/uL Add Manual Diff Neutrophils % (Manual) (48.0-80.0) % Lymphocytes % (Manual) (16.0-40.0) % Monocytes % (Manual) (0.0-15.0) % Eosinophils % (Manual) (0.0-7.0) % Nucleated RBC % /100WBC Absolute Seg Neuts (1.4-5.7) Lymphocytes # (Manual) (0.6-2.4) Monocytes # (Manual) (0.0-0.8) Eosinophils # (Manual) (0.0-0.7) Nucleated RBCs # K/uL INR 1.66 Sodium 141 (136-148) mmol/L Potassium 5.0 (3.5-5.1) mmol/L Chloride 109 H (98-107) mmol/L Carbon Dioxide 22.7 (21.0-32.0) mmol/L BUN 49 H (7.0-18.0) mg/dL Creatinine 2.3 H (0.8-1.3) mg/dL Est Cr Clr Drug Dosing 26.01 mL/min Estimated GFR (MDRD) 27.4 ml/min Glucose 88 (74-106) mg/dL POC Glucose (60-110) mg/dL Calcium 8.9 (8.5-10.1) mg/dL Magnesium (1.8-2.4) mg/dL Total Bilirubin 0.8 (0.2-1.0) mg/dL AST 54 H (15-37) IU/L ALT 43 (14-63) IU/L Alkaline Phosphatase 101 (46-116) U/L Creatine Kinase 431 H (26-308) U/L Troponin I (0.000-0.056) ng/mL Total Protein 6.4 (6.4-8.2) g/dL Albumin 2.7 L (3.4-5.0) g/dL Globulin 3.7 (2.6-4.0) g/dL Albumin/Globulin Ratio 0.7 L (0.9-1.6) Med Orders - Current: Current Medications Acetaminophen (Tylenol) 650 mg PO Q4H PRN PRN Reason: Pain (Mild 1-3)/fever Allopurinol (Zyloprim) 300 mg PO DAILY [facility] Last Admin: 04/21/18 09:40 Dose: 300 mg Amlodipine Besylate (Norvasc) 5 mg PO DAILY [facility] Last Admin: 04/21/18 09:45 Dose: Not Given Atorvastatin Calcium (Lipitor) 40 mg PO DAILY [facility] Last Admin: 04/21/18 09:40 Dose: 40 mg Docusate Sodium (Colace) 100 mg PO BID PRN PRN Reason: Constipation Fexofenadine HCl (Yohana) 60 mg PO BID PRN PRN Reason: Allergies Fluticasone Propionate (Flonase) 0 gm NASBOTH BID [facility] Last Admin: 04/21/18 09:38 Dose: 1 spray Sodium Chloride (Normal Saline) 1,000 mls @ 50 mls/hr IV ASDIRECTED [facility] Last Admin: 04/20/18 18:56 Dose: 50 mls/hr Metoprolol Tartrate (Lopressor) 50 mg PO Q12H [facility] Last Admin: 04/21/18 06:06 Dose: Not Given Ondansetron HCl (Zofran Odt) 4 mg PO Q4H PRN PRN Reason: nausea, able to take PO Oxycodone HCl (Oxycodone) 5 mg PO Q4H PRN PRN Reason: Pain (moderate 4-6) Temazepam (Restoril) 15 mg PO BEDTIME PRN PRN Reason: Sleep Warfarin Sodium (Coumadin) 5 mg PO DAILY@1400 [facility] Discontinued Medications Dextrose/Water (Dextrose 50% In Water) 50 ml IVPUSH ONETIME ONE Stop: 04/20/18 17:27 Last Admin: 04/20/18 17:49 Dose: 50 ml Sodium Chloride (Normal Saline) 1,000 mls @ 999 mls/hr IV STAT ONE Stop: 04/20/18 16:40 Last Admin: 04/20/18 16:31 Dose: 999 mls/hr Influenza Virus Vaccine (Fluzone High-Dose Syringe) 180 mcg IM .ONCE ONE Stop: 04/20/18 17:18 Insulin Human Regular (Novolin R) 10 unit IVPUSH ONETIME ONE; Protocol Stop: 04/20/18 17:27 Last Admin: 04/20/18 17:52 Dose: 10 units Morphine Sulfate (Morphine) 2 mg IVPUSH ONETIME ONE Stop: 04/20/18 15:46 Last Admin: 04/20/18 17:21 Dose: Not Given Sodium Polystyrene Sulfonate (Kayexalate) 15 gm PO ONETIME ONE Stop: 04/20/18 17:28 Last Admin: 04/20/18 19:16 Dose: 15 gm Sodium Polystyrene Sulfonate (Kayexalate) 15 gm PO ONETIME ONE Stop: 04/20/18 22:58 Last Admin: 04/20/18 22:50 Dose: 15 gm Warfarin Sodium (Coumadin) 5 mg PO DAILY [facility] - Exam General: Alert, Oriented HEENT: Pupils Equal, Pupils Reactive, EOMI, Mucous Membr. Moist/[place] Neck: Supple Lungs: Clear to Auscultation, Normal Respiratory Effort Cardiovascular: Regular Rate, Regular Rhythm GI/Abdominal Exam: Normal Bowel Sounds, Soft, Non-Tender, No Organomegaly, No Distention, No Abnormal Bruit, No Mass Back Exam: Normal Inspection, Full Range of Motion Extremities: Normal Inspection, Normal Range of Motion, Non-Tender, No Pedal Edema, Normal Capillary Refill, Other (old bruising on the left hip, no tenderness to palpation. full ROM) Neurological: No New Focal Deficit Psy/Mental Status: Alert, Normal Affect, Normal Mood - Problem List Review Problem List Initiated/Reviewed/Updated: Yes - Plan Plan:: The patient is an 83-year-old gentleman who has been admitted to inpatient. In the emergency department I ordered one amp of D50 along with 10 units of insulin to help with the patient's hyperkalemia. He also had been given 1 dose of Kayexalate. The patient will be placed on telemetry. I've also ordered PT OT secondary to his weakness and worsening ability to ambulate. There was also concerns by the family members with regards to been able to complete his ADLs. The patient is also noted to have minimal elevation of his CPK and this will be monitored but does not rise to a level of rhabdomyolysis. This is secondary to the patient's hematoma of his left hip. The predominant concern is his hyperkalemia. I've ordered repeat potassium in 4 hours. The patient also has been anemic and his current hemoglobin is at 10.5 g/dL. This will be monitored with repeat blood test and if his hemoglobin drops below 7.0 g/dL we'll consider transfusion. The anemia is secondary to his chronic kidney disease. We' ll monitor his BUN/creatinine. The patient is to have vital signs every 4 hours. I've also ordered the patient to continue with his current 5 mg warfarin dose for DVT prophylaxis and he is currently sub-therapeutic with his INR and this will be rechecked. The patient is also encouraged to ambulate with assistance. Assessment: #1. Acute on chronic kidney injury #2. Hyperkalemia #3. Elevated CK #4. History of A. Fib on coumadin Plan: #1. Potassium is on the high limit of normal - continue to monitor #2. Restart coumadin #3. Work with PT #4. CK downtrending <Daniel French - Last Filed: 04/21/18 12:32> - General Info Admission Dx/Problem (Free Text): I have examined the patient independently of Chester Farr MD, medical i d sales. I have discussed the case with the resident. I agree with the assessment and plan of care as outlined for this patient by the resident. Please see orders. - Patient Data Vitals - Most Recent: Last Vital Signs Temp 36.4 C 04/21/18 08:00 Pulse 83 04/21/18 08:00 Resp 18 04/21/18 08:00 BP 105/59 L 04/21/18 09:45 Pulse Ox 94 L 04/21/18 08:00 Orthostatic Blood Pressure [ 112/60 Standing] Orthostatic Blood Pressure [ 121/59 Sitting] Orthostatic Blood Pressure [ 111/59 Supine] I&O - Last 24 Hours: Intake & Output 04/20/18 04/21/18 04/21/18 22:59 06:59 14:59 Intake Total 250 Balance 250 Lab Results Last 24 Hours: Laboratory Results - last 24 hr 04/20/18 04/20/18 04/20/18 Range/Units 16:23 16:23 16:23 WBC 10.55 (4.0-11.0) K/uL RBC 3.49 L (4.50-5.90) M/uL Hgb 10.5 L (13.0-17.0) g/dL Hct 31.9 L (38.0-50.0) % MCV 91.4 (80.0-98.0) fL MCH 30.1 (27.0-32.0) pg MCHC 32.9 (31.0-37.0) g/dL RDW Std Deviation 53.0 (28.0-62.0) fl RDW Coeff of Nolan 16 H (11.0-15.0) % Plt Count 266 (150-400) K/uL MPV 9.90 (7.40-12.00) fL Neut % (Auto) (48.0-80.0) % Lymph % (Auto) (16.0-40.0) % [place] % (Auto) (0.0-15.0) % Eos % (Auto) (0.0-7.0) % Baso % (Auto) (0.0-1.5) % Neut # (Auto) (1.4-5.7) K/uL Lymph # (Auto) (0.6-2.4) K/uL [place] # (Auto) (0.0-0.8) K/uL Eos # (Auto) (0.0-0.7) K/uL Baso # (Auto) (0.0-0.1) K/uL Add Manual Diff YES Neutrophils % (Manual) 70 (48.0-80.0) % Lymphocytes % (Manual) 24 (16.0-40.0) % Monocytes % (Manual) 5 (0.0-15.0) % Eosinophils % (Manual) 1 (0.0-7.0) % Nucleated RBC % 0.0 /100WBC Absolute Seg Neuts 7.4 H (1.4-5.7) Lymphocytes # (Manual) 2.5 H (0.6-2.4) Monocytes # (Manual) 0.5 (0.0-0.8) Eosinophils # (Manual) 0.1 (0.0-0.7) Nucleated RBCs # 0 K/uL INR 1.86 Sodium 138 (136-148) mmol/L Potassium 6.1 H (3.5-5.1) mmol/L Chloride 105 (98-107) mmol/L Carbon Dioxide 22.0 (21.0-32.0) mmol/L BUN 56 H (7.0-18.0) mg/dL Creatinine 2.7 H (0.8-1.3) mg/dL Est Cr Clr Drug Dosing 22.16 mL/min Estimated GFR (MDRD) 22.8 ml/min Glucose 93 (74-106) mg/dL POC Glucose (60-110) mg/dL Calcium 9.8 (8.5-10.1) mg/dL Magnesium (1.8-2.4) mg/dL Total Bilirubin 0.9 (0.2-1.0) mg/dL AST 64 H (15-37) IU/L ALT 48 (14-63) IU/L Alkaline Phosphatase 124 H (46-116) U/L Creatine Kinase (26-308) U/L Troponin I (0.000-0.056) ng/mL Total Protein 7.2 (6.4-8.2) g/dL Albumin 3.3 L (3.4-5.0) g/dL Globulin 3.9 (2.6-4.0) g/dL Albumin/Globulin Ratio 0.9 (0.9-1.6) 04/20/18 04/20/18 04/20/18 Range/Units 16:23 16:23 16:23 WBC (4.0-11.0) K/uL RBC (4.50-5.90) M/uL Hgb (13.0-17.0) g/dL Hct (38.0-50.0) % MCV (80.0-98.0) fL MCH (27.0-32.0) pg MCHC (31.0-37.0) g/dL RDW Std Deviation (28.0-62.0) fl RDW Coeff of Nolan (11.0-15.0) % Plt Count (150-400) K/uL MPV (7.40-12.00) fL Neut % (Auto) (48.0-80.0) % Lymph % (Auto) (16.0-40.0) % [place] % (Auto) (0.0-15.0) % Eos % (Auto) (0.0-7.0) % Baso % (Auto) (0.0-1.5) % Neut # (Auto) (1.4-5.7) K/uL Lymph # (Auto) (0.6-2.4) K/uL [place] # (Auto) (0.0-0.8) K/uL Eos # (Auto) (0.0-0.7) K/uL Baso # (Auto) (0.0-0.1) K/uL Add Manual Diff Neutrophils % (Manual) (48.0-80.0) % Lymphocytes % (Manual) (16.0-40.0) % Monocytes % (Manual) (0.0-15.0) % Eosinophils % (Manual) (0.0-7.0) % Nucleated RBC % /100WBC Absolute Seg Neuts (1.4-5.7) Lymphocytes # (Manual) (0.6-2.4) Monocytes # (Manual) (0.0-0.8) Eosinophils # (Manual) (0.0-0.7) Nucleated RBCs # K/uL INR Sodium (136-148) mmol/L Potassium (3.5-5.1) mmol/L Chloride (98-107) mmol/L Carbon Dioxide (21.0-32.0) mmol/L BUN (7.0-18.0) mg/dL Creatinine (0.8-1.3) mg/dL Est Cr Clr Drug Dosing mL/min Estimated GFR (MDRD) ml/min Glucose (74-106) mg/dL POC Glucose (60-110) mg/dL Calcium (8.5-10.1) mg/dL Magnesium 2.1 (1.8-2.4) mg/dL Total Bilirubin (0.2-1.0) mg/dL AST (15-37) IU/L ALT (14-63) IU/L Alkaline Phosphatase (46-116) U/L Creatine Kinase 621 H (26-308) U/L Troponin I < 0.050 (0.000-0.056) ng/mL Total Protein (6.4-8.2) g/dL Albumin (3.4-5.0) g/dL Globulin (2.6-4.0) g/dL Albumin/Globulin Ratio (0.9-1.6) 04/20/18 04/20/18 04/21/18 Range/Units 17:48 20:57 05:10 WBC 8.45 (4.0-11.0) K/uL RBC 3.17 L (4.50-5.90) M/uL Hgb 9.4 L (13.0-17.0) g/dL Hct 29.1 L (38.0-50.0) % MCV 91.8 (80.0-98.0) fL MCH 29.7 (27.0-32.0) pg MCHC 32.3 (31.0-37.0) g/dL RDW Std Deviation 52.7 (28.0-62.0) fl RDW Coeff of Nolan 16 H (11.0-15.0) % Plt Count 256 (150-400) K/uL MPV 9.90 (7.40-12.00) fL Neut % (Auto) 55.6 (48.0-80.0) % Lymph % (Auto) 31.8 (16.0-40.0) % [place] % (Auto) 8.6 (0.0-15.0) % Eos % (Auto) 3.3 (0.0-7.0) % Baso % (Auto) 0.7 (0.0-1.5) % Neut # (Auto) 4.7 (1.4-5.7) K/uL Lymph # (Auto) 2.7 H (0.6-2.4) K/uL [place] # (Auto) 0.7 (0.0-0.8) K/uL Eos # (Auto) 0.3 (0.0-0.7) K/uL Baso # (Auto) 0.1 (0.0-0.1) K/uL Add Manual Diff Neutrophils % (Manual) (48.0-80.0) % Lymphocytes % (Manual) (16.0-40.0) % Monocytes % (Manual) (0.0-15.0) % Eosinophils % (Manual) (0.0-7.0) % Nucleated RBC % 0.0 /100WBC Absolute Seg Neuts (1.4-5.7) Lymphocytes # (Manual) (0.6-2.4) Monocytes # (Manual) (0.0-0.8) Eosinophils # (Manual) (0.0-0.7) Nucleated RBCs # 0 K/uL INR Sodium 140 (136-148) mmol/L Potassium 5.2 H (3.5-5.1) mmol/L Chloride 105 (98-107) mmol/L Carbon Dioxide 22.6 (21.0-32.0) mmol/L BUN 54 H (7.0-18.0) mg/dL Creatinine 2.7 H (0.8-1.3) mg/dL Est Cr Clr Drug Dosing 22.16 mL/min Estimated GFR (MDRD) 22.8 ml/min Glucose 91 (74-106) mg/dL POC Glucose 83 (60-110) mg/dL Calcium 9.6 (8.5-10.1) mg/dL Magnesium (1.8-2.4) mg/dL Total Bilirubin (0.2-1.0) mg/dL AST (15-37) IU/L ALT (14-63) IU/L Alkaline Phosphatase (46-116) U/L Creatine Kinase (26-308) U/L Troponin I (0.000-0.056) ng/mL Total Protein (6.4-8.2) g/dL Albumin (3.4-5.0) g/dL Globulin (2.6-4.0) g/dL Albumin/Globulin Ratio (0.9-1.6) 04/21/18 04/21/18 04/21/18 Range/Units 05:10 05:10 05:10 WBC (4.0-11.0) K/uL RBC (4.50-5.90) M/uL Hgb (13.0-17.0) g/dL Hct (38.0-50.0) % MCV (80.0-98.0) fL MCH (27.0-32.0) pg MCHC (31.0-37.0) g/dL RDW Std Deviation (28.0-62.0) fl RDW Coeff of Nolan (11.0-15.0) % Plt Count (150-400) K/uL MPV (7.40-12.00) fL Neut % (Auto) (48.0-80.0) % Lymph % (Auto) (16.0-40.0) % [place] % (Auto) (0.0-15.0) % Eos % (Auto) (0.0-7.0) % Baso % (Auto) (0.0-1.5) % Neut # (Auto) (1.4-5.7) K/uL Lymph # (Auto) (0.6-2.4) K/uL [place] # (Auto) (0.0-0.8) K/uL Eos # (Auto) (0.0-0.7) K/uL Baso # (Auto) (0.0-0.1) K/uL Add Manual Diff Neutrophils % (Manual) (48.0-80.0) % Lymphocytes % (Manual) (16.0-40.0) % Monocytes % (Manual) (0.0-15.0) % Eosinophils % (Manual) (0.0-7.0) % Nucleated RBC % /100WBC Absolute Seg Neuts (1.4-5.7) Lymphocytes # (Manual) (0.6-2.4) Monocytes # (Manual) (0.0-0.8) Eosinophils # (Manual) (0.0-0.7) Nucleated RBCs # K/uL INR 1.66 Sodium 141 (136-148) mmol/L Potassium 5.0 (3.5-5.1) mmol/L Chloride 109 H (98-107) mmol/L Carbon Dioxide 22.7 (21.0-32.0) mmol/L BUN 49 H (7.0-18.0) mg/dL Creatinine 2.3 H (0.8-1.3) mg/dL Est Cr Clr Drug Dosing 26.01 mL/min Estimated GFR (MDRD) 27.4 ml/min Glucose 88 (74-106) mg/dL POC Glucose (60-110) mg/dL Calcium 8.9 (8.5-10.1) mg/dL Magnesium (1.8-2.4) mg/dL Total Bilirubin 0.8 (0.2-1.0) mg/dL AST 54 H (15-37) IU/L ALT 43 (14-63) IU/L Alkaline Phosphatase 101 (46-116) U/L Creatine Kinase 431 H (26-308) U/L Troponin I (0.000-0.056) ng/mL Total Protein 6.4 (6.4-8.2) g/dL Albumin 2.7 L (3.4-5.0) g/dL Globulin 3.7 (2.6-4.0) g/dL Albumin/Globulin Ratio 0.7 L (0.9-1.6) Med Orders - Current: Current Medications Acetaminophen (Tylenol) 650 mg PO Q4H PRN PRN Reason: Pain (Mild 1-3)/fever Last Admin: 04/21/18 11:26 Dose: 650 mg Allopurinol (Zyloprim) 300 mg PO DAILY [facility] Last Admin: 04/21/18 09:40 Dose: 300 mg Amlodipine Besylate (Norvasc) 5 mg PO DAILY [facility] Last Admin: 04/21/18 09:45 Dose: Not Given Atorvastatin Calcium (Lipitor) 40 mg PO DAILY [facility] Last Admin: 04/21/18 09:40 Dose: 40 mg Docusate Sodium (Colace) 100 mg PO BID PRN PRN Reason: Constipation Fexofenadine HCl (Yohana) 60 mg PO BID PRN PRN Reason: Allergies Fluticasone Propionate (Flonase) 0 gm NASBOTH BID [facility] Last Admin: 04/21/18 09:38 Dose: 1 spray Sodium Chloride (Normal Saline) 1,000 mls @ 50 mls/hr IV ASDIRECTED [facility] Last Admin: 04/20/18 18:56 Dose: 50 mls/hr Metoprolol Tartrate (Lopressor) 50 mg PO Q12H [facility] Last Admin: 04/21/18 06:06 Dose: Not Given Ondansetron HCl (Zofran Odt) 4 mg PO Q4H PRN PRN Reason: nausea, able to take PO Oxycodone HCl (Oxycodone) 5 mg PO Q4H PRN PRN Reason: Pain (moderate 4-6) Temazepam (Restoril) 15 mg PO BEDTIME PRN PRN Reason: Sleep Warfarin Sodium (Coumadin) 5 mg PO DAILY@1400 [facility] Discontinued Medications Dextrose/Water (Dextrose 50% In Water) 50 ml IVPUSH ONETIME ONE Stop: 04/20/18 17:27 Last Admin: 04/20/18 17:49 Dose: 50 ml Sodium Chloride (Normal Saline) 1,000 mls @ 999 mls/hr IV STAT ONE Stop: 04/20/18 16:40 Last Admin: 04/20/18 16:31 Dose: 999 mls/hr Influenza Virus Vaccine (Fluzone High-Dose Syringe) 180 mcg IM .ONCE ONE Stop: 04/20/18 17:18 Insulin Human Regular (Novolin R) 10 unit IVPUSH ONETIME ONE; Protocol Stop: 04/20/18 17:27 Last Admin: 04/20/18 17:52 Dose: 10 units Morphine Sulfate (Morphine) 2 mg IVPUSH ONETIME ONE Stop: 04/20/18 15:46 Last Admin: 04/20/18 17:21 Dose: Not Given Sodium Polystyrene Sulfonate (Kayexalate) 15 gm PO ONETIME ONE Stop: 04/20/18 17:28 Last Admin: 04/20/18 19:16 Dose: 15 gm Sodium Polystyrene Sulfonate (Kayexalate) 15 gm PO ONETIME ONE Stop: 04/20/18 22:58 Last Admin: 04/20/18 22:50 Dose: 15 gm Warfarin Sodium (Coumadin) 5 mg PO DAILY [facility] - Problem List & Annotations (1) Hyperkalemia SNOMED Code(s): 85070380 Code(s): E87.5 - HYPERKALEMIA Status: Acute Priority: High Current Visit: Yes (2) Chronic kidney disease, stage 3 (moderate) SNOMED Code(s): 126499803 Code(s): N18.3 - CHRONIC KIDNEY DISEASE, STAGE 3 (MODERATE) Status: Chronic Priority: High Current Visit: Yes (3) Atrial fibrillation SNOMED Code(s): 81678726 Code(s): I48.91 - UNSPECIFIED ATRIAL FIBRILLATION Status: Chronic Priority: Medium Current Visit: Yes Qualifiers: Atrial fibrillation type: chronic Qualified Code(s): I48.2 - Chronic atrial fibrillation (4) Anemia SNOMED Code(s): 058710616 Code(s): D64.9 - ANEMIA, UNSPECIFIED Status: Acute Priority: High Current Visit: Yes Qualifiers: Anemia type: due to chronic kidney disease Chronic kidney disease stage: stage 3 (moderate) Qualified Code(s): N18.3 - Chronic kidney disease, stage 3 (moderate); D63.1 - Anemia in chronic kidney disease (5) Hematoma SNOMED Code(s): 929298874 Code(s): T14.8XXA - OTHER INJURY OF UNSPECIFIED BODY REGION, INITIAL ENCOUNTER Status: Acute Priority: High Current Visit: Yes - My Orders Last 24 Hours: My Active Orders 04/20/18 17:17 Patient Status [ADT] Routine Oxygen Therapy [RC] PRN Up With Assistance [RC] ASDIRECTED VTE/DVT Education [RC] PER UNIT ROUTINE Vital Signs [RC] Q4H OT Evaluation and Treatment [CONS] Routine PT Evaluation and Treatment [CONS] Routine Acetaminophen [Tylenol] 650 mg PO Q4H PRN Docusate Sodium [Colace] 100 mg PO BID PRN Ondansetron [Zofran ODT] 4 mg PO Q4H PRN Temazepam [Restoril] 15 mg PO BEDTIME PRN oxyCODONE 5 mg PO Q4H PRN GM Immunization Reflex [OM.PC] Click To Edit VTE Mechanical Contraindications [AST] Per Unit Routine VTE Pharmacological Contraindications [AST] Per Unit Routine Resuscitation Status Routine 04/20/18 17:21 Cardiac Monitoring [RC] CONTINUOUS 04/20/18 17:22 Communication, Vaccine [RC] PER UNIT ROUTINE Vaccines to be Administered [RC] PER UNIT ROUTINE 04/20/18 17:23 Sequential Compression Device [OM.PC] Per Unit Routine 04/20/18 17:24 Antiembolic Devices [RC] PER UNIT ROUTINE Fexofenadine [Yohana] 60 mg PO BID PRN 04/20/18 17:30 Metoprolol Tartrate [Lopressor] 50 mg PO Q12H Sodium Chloride 0.9% [Normal Saline] 1,000 ml IV ASDIRECTED 04/20/18 21:00 Fluticasone Propionate [Flonase] 0 gm NASBOTH BID 04/21/18 09:00 Allopurinol [Zyloprim] 300 mg PO DAILY amLODIPine [Norvasc] 5 mg PO DAILY atorvaSTATin [Lipitor] 40 mg PO DAILY 04/21/18 14:00 Warfarin [Coumadin] 5 mg PO DAILY@1400
[2018-04-21] MEDS: Warfarin 5 MG Tab PO SCH (14:20)
[2018-04-21] MEDS: Sodium Chloride 0.9% 1,000 ML IV SCH (14:58)
[2018-04-21] MEDS ORDERED: Insulin Regular, Human 100 Units/ML 10 ML Vial SUBCUT ONE (17:26)
[2018-04-22] MEDS: Metoprolol Tartrate 50 MG Tab PO SCH ×2 (05:39→18:21)
[2018-04-22] MEDS: Fluticasone Propionate Nasal Spray 16 GM Bottle NASBOTH SCH ×2 (09:23→22:58)
[2018-04-22] MEDS: atorvaSTATin 40 MG Tab PO SCH (09:25)
[2018-04-22] MEDS: amLODIPine 5 MG Tab PO SCH (09:25)
[2018-04-22] MEDS: Allopurinol 300 MG Tab PO SCH (09:25)
[2018-04-22] MEDS ORDERED: Sodium Chloride 0.9% 500 ML IV SCH (10:00)
--- NOTE | 2018-04-22 11:06 | PCM.PN ---
- General Info Date of Service: 04/22/18 Subjective Update: The patient is an 83-year-old gentleman who had presented to the emergency department and was admitted secondary to left-sided hip pain. The patient had a hematoma of his right hip that had been interfering with the ability ambulate. He also been using a wheelchair at home. The patient is on Coumadin for atrial fibrillation. The patient says that he is doing much better today. He feels like he can go home. The patient says that he is not having any pain. He has been tolerating diet. Functional Status: Reports: Pain Controlled, Tolerating Diet - Review of Systems General: Reports: No Symptoms HEENT: Reports: No Symptoms Pulmonary: Reports: No Symptoms Cardiovascular: Reports: No Symptoms Gastrointestinal: Reports: No Symptoms Genitourinary: Reports: No Symptoms Musculoskeletal: Reports: No Symptoms Skin: Reports: No Symptoms Neurological: Reports: No Symptoms Psychiatric: Reports: No Symptoms Systems Review Comment:: Information suspect, poor historian - Patient Data Vitals - Most Recent: Last Vital Signs Temp 36.4 C 04/22/18 09:00 Pulse 97 04/22/18 09:00 Resp 18 04/22/18 09:00 BP 95/65 04/22/18 09:28 Pulse Ox 93 L 04/22/18 09:00 Orthostatic Blood Pressure [ 112/60 Standing] Orthostatic Blood Pressure [ 121/59 Sitting] Orthostatic Blood Pressure [ 111/59 Supine] Weight - Most Recent: 74.843 kg I&O - Last 24 Hours: Intake & Output 04/21/18 04/22/18 04/22/18 22:59 06:59 14:59 Intake Total 1854 200 500 Output Total 1000 500 Balance 854 -300 500 Lab Results Last 24 Hours: Laboratory Results - last 24 hr 04/21/18 04/22/18 04/22/18 Range/Units 16:15 06:12 06:12 WBC (4.0-11.0) K/uL RBC (4.50-5.90) M/uL Hgb (13.0-17.0) g/dL Hct (38.0-50.0) % MCV (80.0-98.0) fL MCH (27.0-32.0) pg MCHC (31.0-37.0) g/dL RDW Std Deviation (28.0-62.0) fl RDW Coeff of Nolan (11.0-15.0) % Plt Count (150-400) K/uL MPV (7.40-12.00) fL Neut % (Auto) (48.0-80.0) % Lymph % (Auto) (16.0-40.0) % [place] % (Auto) (0.0-15.0) % Eos % (Auto) (0.0-7.0) % Baso % (Auto) (0.0-1.5) % Neut # (Auto) (1.4-5.7) K/uL Lymph # (Auto) (0.6-2.4) K/uL [place] # (Auto) (0.0-0.8) K/uL Eos # (Auto) (0.0-0.7) K/uL Baso # (Auto) (0.0-0.1) K/uL Nucleated RBC % /100WBC Nucleated RBCs # K/uL INR 1.51 Sodium 143 (136-148) mmol/L Potassium 4.4 (3.5-5.1) mmol/L Chloride 110 H (98-107) mmol/L Carbon Dioxide 24.7 (21.0-32.0) mmol/L BUN 39 H (7.0-18.0) mg/dL Creatinine 1.8 H (0.8-1.3) mg/dL Est Cr Clr Drug Dosing 33.23 mL/min Estimated GFR (MDRD) 36.4 ml/min Glucose 92 (74-106) mg/dL Calcium 9.1 (8.5-10.1) mg/dL Urine Color YELLOW Urine Appearance CLEAR Urine pH 5.5 (5.0-8.0) Ur Specific [place] 1.015 (1.001-1.035) Urine Protein NEGATIVE (NEGATIVE) mg/dL Urine Glucose (UA) NEGATIVE (NEGATIVE) mg/dL Urine Ketones NEGATIVE (NEGATIVE) mg/dL Urine Occult Blood NEGATIVE (NEGATIVE) Urine Nitrite NEGATIVE (NEGATIVE) Urine Bilirubin NEGATIVE (NEGATIVE) Urine Urobilinogen 0.2 (<2.0) EU/dL Ur Leukocyte Esterase NEGATIVE (NEGATIVE) 04/22/18 Range/Units 06:12 WBC 7.70 (4.0-11.0) K/uL RBC 3.04 L (4.50-5.90) M/uL Hgb 9.3 L (13.0-17.0) g/dL Hct 28.0 L (38.0-50.0) % MCV 92.1 (80.0-98.0) fL MCH 30.6 (27.0-32.0) pg MCHC 33.2 (31.0-37.0) g/dL RDW Std Deviation 53.7 (28.0-62.0) fl RDW Coeff of Nolan 17 H (11.0-15.0) % Plt Count 254 (150-400) K/uL MPV 9.70 (7.40-12.00) fL Neut % (Auto) 61.6 (48.0-80.0) % Lymph % (Auto) 25.8 (16.0-40.0) % [place] % (Auto) 9.5 (0.0-15.0) % Eos % (Auto) 2.7 (0.0-7.0) % Baso % (Auto) 0.4 (0.0-1.5) % Neut # (Auto) 4.7 (1.4-5.7) K/uL Lymph # (Auto) 2.0 (0.6-2.4) K/uL [place] # (Auto) 0.7 (0.0-0.8) K/uL Eos # (Auto) 0.2 (0.0-0.7) K/uL Baso # (Auto) 0.0 (0.0-0.1) K/uL Nucleated RBC % 0.3 /100WBC Nucleated RBCs # 0 K/uL INR Sodium (136-148) mmol/L Potassium (3.5-5.1) mmol/L Chloride (98-107) mmol/L Carbon Dioxide (21.0-32.0) mmol/L BUN (7.0-18.0) mg/dL Creatinine (0.8-1.3) mg/dL Est Cr Clr Drug Dosing mL/min Estimated GFR (MDRD) ml/min Glucose (74-106) mg/dL Calcium (8.5-10.1) mg/dL Urine Color Urine Appearance Urine pH (5.0-8.0) Ur Specific [place] (1.001-1.035) Urine Protein (NEGATIVE) mg/dL Urine Glucose (UA) (NEGATIVE) mg/dL Urine Ketones (NEGATIVE) mg/dL Urine Occult Blood (NEGATIVE) Urine Nitrite (NEGATIVE) Urine Bilirubin (NEGATIVE) Urine Urobilinogen (<2.0) EU/dL Ur Leukocyte Esterase (NEGATIVE) Med Orders - Current: Current Medications Acetaminophen (Tylenol) 650 mg PO Q4H PRN PRN Reason: Pain (Mild 1-3)/fever Last Admin: 04/21/18 11:26 Dose: 650 mg Allopurinol (Zyloprim) 300 mg PO DAILY [facility] Last Admin: 04/22/18 09:25 Dose: 300 mg Amlodipine Besylate (Norvasc) 5 mg PO DAILY [facility] Last Admin: 04/22/18 09:25 Dose: Not Given Atorvastatin Calcium (Lipitor) 40 mg PO DAILY [facility] Last Admin: 04/22/18 09:25 Dose: 40 mg Docusate Sodium (Colace) 100 mg PO BID PRN PRN Reason: Constipation Fexofenadine HCl (Yohana) 60 mg PO BID PRN PRN Reason: Allergies Fluticasone Propionate (Flonase) 0 gm NASBOTH BID [facility] Last Admin: 04/22/18 09:23 Dose: 1 spray Sodium Chloride (Normal Saline) 1,000 mls @ 50 mls/hr IV ASDIRECTED [facility] Last Admin: 04/21/18 14:58 Dose: 50 mls/hr Sodium Chloride (Normal Saline) 500 mls @ 999 mls/hr IV .BOLUS [facility] Last Admin: 04/22/18 10:38 Dose: 999 mls/hr Metoprolol Tartrate (Lopressor) 50 mg PO Q12H [facility] Last Admin: 04/22/18 05:39 Dose: Not Given Ondansetron HCl (Zofran Odt) 4 mg PO Q4H PRN PRN Reason: nausea, able to take PO Oxycodone HCl (Oxycodone) 5 mg PO Q4H PRN PRN Reason: Pain (moderate 4-6) Temazepam (Restoril) 15 mg PO BEDTIME PRN PRN Reason: Sleep Warfarin Sodium (Coumadin) 5 mg PO DAILY@1400 [facility] Last Admin: 04/21/18 14:20 Dose: 5 mg Warfarin Sodium (Coumadin) 2.5 mg PO ONETIME ONE Stop: 04/22/18 14:01 Discontinued Medications Dextrose/Water (Dextrose 50% In Water) 50 ml IVPUSH ONETIME ONE Stop: 04/20/18 17:27 Last Admin: 04/20/18 17:49 Dose: 50 ml Sodium Chloride (Normal Saline) 1,000 mls @ 999 mls/hr IV STAT ONE Stop: 04/20/18 16:40 Last Admin: 04/20/18 16:31 Dose: 999 mls/hr Influenza Virus Vaccine (Fluzone High-Dose Syringe) 180 mcg IM .ONCE ONE Stop: 04/20/18 17:18 Insulin Human Regular (Novolin R) 10 unit IVPUSH ONETIME ONE; Protocol Stop: 04/20/18 17:27 Last Admin: 04/20/18 17:52 Dose: 10 units Morphine Sulfate (Morphine) 2 mg IVPUSH ONETIME ONE Stop: 04/20/18 15:46 Last Admin: 04/20/18 17:21 Dose: Not Given Sodium Polystyrene Sulfonate (Kayexalate) 15 gm PO ONETIME ONE Stop: 04/20/18 17:28 Last Admin: 04/20/18 19:16 Dose: 15 gm Sodium Polystyrene Sulfonate (Kayexalate) 15 gm PO ONETIME ONE Stop: 04/20/18 22:58 Last Admin: 04/20/18 22:50 Dose: 15 gm Warfarin Sodium (Coumadin) 5 mg PO DAILY [facility] - Exam Quality Assessment: Supplemental Oxygen General: Alert, Oriented HEENT: Pupils Equal, Pupils Reactive Neck: Supple, Trachea Midline Lungs: Clear to Auscultation, Normal Respiratory Effort Cardiovascular: Regular Rate, Irregular Rhythm GI/Abdominal Exam: Normal Bowel Sounds, Soft, Non-Tender, No Distention (Male) Exam: Deferred Back Exam: Normal Inspection, Full Range of Motion Extremities: Normal Inspection, No Pedal Edema Skin: Warm, Dry, Intact, Ecchymosis (Left hip) Neurological: No New Focal Deficit Psy/Mental Status: Alert, Normal Affect - Problem List & Annotations (1) Atrial fibrillation SNOMED Code(s): 91862675 Code(s): I48.91 - UNSPECIFIED ATRIAL FIBRILLATION Status: Chronic Priority: Medium Current Visit: Yes Qualifiers: Atrial fibrillation type: chronic Qualified Code(s): I48.2 - Chronic atrial fibrillation (2) Self-care deficit in patient living alone SNOMED Code(s): 68536851 Code(s): R46.89 - OTHER SYMPTOMS AND SIGNS INVOLVING APPEARANCE AND BEHAVIOR Status: Chronic Priority: High Current Visit: Yes (3) Hyperkalemia SNOMED Code(s): 07253953 Code(s): E87.5 - HYPERKALEMIA Status: Resolved Priority: High Current Visit: Yes (4) Chronic kidney disease, stage 3 (moderate) SNOMED Code(s): 242176725 Code(s): N18.3 - CHRONIC KIDNEY DISEASE, STAGE 3 (MODERATE) Status: Chronic Priority: High Current Visit: Yes (5) Anemia SNOMED Code(s): 721301005 Code(s): D64.9 - ANEMIA, UNSPECIFIED Status: Acute Priority: High Current Visit: Yes Qualifiers: Anemia type: due to chronic kidney disease Chronic kidney disease stage: stage 3 (moderate) Qualified Code(s): N18.3 - Chronic kidney disease, stage 3 (moderate); D63.1 - Anemia in chronic kidney disease (6) Hematoma SNOMED Code(s): 061861583 Code(s): T14.8XXA - OTHER INJURY OF UNSPECIFIED BODY REGION, INITIAL ENCOUNTER Status: Acute Priority: High Current Visit: Yes - Problem List Review Problem List Initiated/Reviewed/Updated: Yes - My Orders Last 24 Hours: My Active Orders 04/21/18 14:00 Warfarin [Coumadin] 5 mg PO DAILY@1400 04/22/18 10:00 Sodium Chloride 0.9% [Normal Saline] 500 ml IV .BOLUS 04/22/18 14:00 Warfarin [Coumadin] 2.5 mg PO ONETIME ONE - Plan Plan:: The patient is an 83-year-old gentleman who has been admitted to inpatient. In the emergency department I ordered one amp of D50 along with 10 units of insulin to help with the patient's hyperkalemia. He also had been given 1 dose of Kayexalate. The patient will be placed on telemetry. I've also ordered PT OT secondary to his weakness and worsening ability to ambulate. There was also concerns by the family members with regards to been able to complete his ADLs. The patient is also noted to have minimal elevation of his CPK and this will be monitored but does not rise to a level of rhabdomyolysis. This is secondary to the patient's hematoma of his left hip. The predominant concern is his hyperkalemia. I've ordered repeat potassium in 4 hours. The patient also has been anemic and his current hemoglobin is at 10.5 g/dL. This will be monitored with repeat blood test and if his hemoglobin drops below 7.0 g/dL we'll consider transfusion. The anemia is secondary to his chronic kidney disease. We' ll monitor his BUN/creatinine. The patient is to have vital signs every 4 hours. I've also ordered the patient to continue with his current 5 mg warfarin dose for DVT prophylaxis and he is currently sub-therapeutic with his INR and this will be rechecked. The patient is also encouraged to ambulate with assistance. Assessment: #1. Acute on chronic kidney injury #2. Hyperkalemia #3. Elevated CK #4. History of A. Fib on coumadin Plan: #1. Potassium is on the high limit of normal - continue to monitor #2. Restart coumadin #3. Work with PT #4. CK downtrending The patient is an 83-year-old gentleman who had been admitted as an inpatient. His admitted secondary to hyperkalemia and this is essentially resolved. I've ordered repeat laboratory studies to help monitor his electrolytes as well as his renal failure. The patient's BU in and creatinine are returning to normal. I also met privately with the patient's daughter who is very concerned about his ability to take care of himself at home. The patient lives by himself and he has been doing very poorly with being able to meet his activities of daily living. The patient's family as a group heart concerned about his ability to live by himself and her concerned about mcfp. The patient has been recommended to continue to ambulate. I've also ordered CBC in the morning to check the patient's CBC and his hemoglobin and if his hemoglobin has dropped below 7.0 g/dL we'll consider transfusion. His anemia secondary to the chronic kidney disease.
[2018-04-22] MEDS: Sodium Chloride 0.9% 1,000 ML IV SCH (11:41)
[2018-04-22] MEDS: Warfarin 5 MG Tab PO SCH (13:39)
[2018-04-22] MEDS ORDERED: Warfarin 2.5 MG Tab PO ONE (14:00)
[2018-04-23] MEDS: Sodium Chloride 0.9% 1,000 ML IV SCH (05:52)
[2018-04-23] MEDS: Metoprolol Tartrate 50 MG Tab PO SCH ×2 (05:52→18:16)
--- NOTE | 2018-04-23 08:47 | PCM.PN ---
- General Info Date of Service: 04/23/18 Admission Dx/Problem (Free Text): Falling, not able to care for self. Subjective Update: The patient is an 83-year-old gentleman who had presented to the emergency department with the complaint of left-sided hip pain. Was admitted secondary to hematoma of his left hip which was interfering with his ability to ambulate. Information has come forward with regards to the patient's family. They're concerned about his ability to care for himself at home. The patient says that he feels good today. He has been eating. He has no other complaints at this time. Functional Status: Reports: Pain Controlled, Tolerating Diet - Review of Systems General: Reports: No Symptoms HEENT: Reports: No Symptoms Pulmonary: Reports: No Symptoms Cardiovascular: Reports: No Symptoms Gastrointestinal: Reports: No Symptoms Genitourinary: Reports: No Symptoms Musculoskeletal: Reports: No Symptoms Skin: Reports: No Symptoms Neurological: Reports: No Symptoms Psychiatric: Reports: No Symptoms - Patient Data Vitals - Most Recent: Last Vital Signs Temp 36.3 C 04/23/18 07:50 Pulse 81 04/23/18 07:50 Resp 16 04/23/18 07:50 BP 130/68 04/23/18 07:50 Pulse Ox 92 L 04/23/18 07:50 Orthostatic Blood Pressure [ 112/60 Standing] Orthostatic Blood Pressure [ 121/59 Sitting] Orthostatic Blood Pressure [ 111/59 Supine] Weight - Most Recent: 74.843 kg I&O - Last 24 Hours: Intake & Output 04/22/18 04/23/18 04/23/18 22:59 06:59 14:59 Intake Total 2335 1187 Output Total 550 720 Balance 1785 467 Lab Results Last 24 Hours: Laboratory Results - last 24 hr 04/23/18 04/23/18 04/23/18 Range/Units 06:09 06:09 06:09 WBC 7.68 (4.0-11.0) K/uL RBC 3.13 L (4.50-5.90) M/uL Hgb 9.3 L (13.0-17.0) g/dL Hct 28.9 L (38.0-50.0) % MCV 92.3 (80.0-98.0) fL MCH 29.7 (27.0-32.0) pg MCHC 32.2 (31.0-37.0) g/dL RDW Std Deviation 53.9 (28.0-62.0) fl RDW Coeff of Nolan 17 H (11.0-15.0) % Plt Count 256 (150-400) K/uL MPV 9.40 (7.40-12.00) fL Neut % (Auto) 55.8 (48.0-80.0) % Lymph % (Auto) 32.0 (16.0-40.0) % [place] % (Auto) 8.7 (0.0-15.0) % Eos % (Auto) 2.5 (0.0-7.0) % Baso % (Auto) 1.0 (0.0-1.5) % Neut # (Auto) 4.3 (1.4-5.7) K/uL Lymph # (Auto) 2.5 H (0.6-2.4) K/uL [place] # (Auto) 0.7 (0.0-0.8) K/uL Eos # (Auto) 0.2 (0.0-0.7) K/uL Baso # (Auto) 0.1 (0.0-0.1) K/uL Nucleated RBC % 0.5 /100WBC Nucleated RBCs # 0 K/uL INR 1.76 Sodium 143 (136-148) mmol/L Potassium 4.3 (3.5-5.1) mmol/L Chloride 111 H (98-107) mmol/L Carbon Dioxide 21.9 (21.0-32.0) mmol/L BUN 29 H (7.0-18.0) mg/dL Creatinine 1.6 H (0.8-1.3) mg/dL Est Cr Clr Drug Dosing 37.39 mL/min Estimated GFR (MDRD) 41.7 ml/min Glucose 98 (74-106) mg/dL Calcium 8.8 (8.5-10.1) mg/dL Med Orders - Current: Current Medications Acetaminophen (Tylenol) 650 mg PO Q4H PRN PRN Reason: Pain (Mild 1-3)/fever Last Admin: 04/21/18 11:26 Dose: 650 mg Allopurinol (Zyloprim) 300 mg PO DAILY [facility] Last Admin: 04/22/18 09:25 Dose: 300 mg Amlodipine Besylate (Norvasc) 5 mg PO DAILY [facility] Last Admin: 04/22/18 09:25 Dose: Not Given Atorvastatin Calcium (Lipitor) 40 mg PO DAILY [facility] Last Admin: 04/22/18 09:25 Dose: 40 mg Docusate Sodium (Colace) 100 mg PO BID PRN PRN Reason: Constipation Fexofenadine HCl (Yohana) 60 mg PO BID PRN PRN Reason: Allergies Fluticasone Propionate (Flonase) 0 gm NASBOTH BID [facility] Last Admin: 04/22/18 22:58 Dose: 1 spray Sodium Chloride (Normal Saline) 1,000 mls @ 50 mls/hr IV ASDIRECTED [facility] Last Admin: 04/23/18 05:52 Dose: 50 mls/hr Sodium Chloride (Normal Saline) 500 mls @ 999 mls/hr IV .BOLUS [facility] Last Admin: 04/22/18 10:38 Dose: 999 mls/hr Metoprolol Tartrate (Lopressor) 50 mg PO Q12H [facility] Last Admin: 04/23/18 05:52 Dose: Not Given Ondansetron HCl (Zofran Odt) 4 mg PO Q4H PRN PRN Reason: nausea, able to take PO Oxycodone HCl (Oxycodone) 5 mg PO Q4H PRN PRN Reason: Pain (moderate 4-6) Temazepam (Restoril) 15 mg PO BEDTIME PRN PRN Reason: Sleep Warfarin Sodium (Coumadin) 5 mg PO DAILY@1400 [facility] Last Admin: 04/22/18 13:39 Dose: 5 mg Discontinued Medications Dextrose/Water (Dextrose 50% In Water) 50 ml IVPUSH ONETIME ONE Stop: 04/20/18 17:27 Last Admin: 04/20/18 17:49 Dose: 50 ml Sodium Chloride (Normal Saline) 1,000 mls @ 999 mls/hr IV STAT ONE Stop: 04/20/18 16:40 Last Admin: 04/20/18 16:31 Dose: 999 mls/hr Influenza Virus Vaccine (Fluzone High-Dose Syringe) 180 mcg IM .ONCE ONE Stop: 04/20/18 17:18 Insulin Human Regular (Novolin R) 10 unit IVPUSH ONETIME ONE; Protocol Stop: 04/20/18 17:27 Last Admin: 04/20/18 17:52 Dose: 10 units Morphine Sulfate (Morphine) 2 mg IVPUSH ONETIME ONE Stop: 04/20/18 15:46 Last Admin: 04/20/18 17:21 Dose: Not Given Sodium Polystyrene Sulfonate (Kayexalate) 15 gm PO ONETIME ONE Stop: 04/20/18 17:28 Last Admin: 04/20/18 19:16 Dose: 15 gm Sodium Polystyrene Sulfonate (Kayexalate) 15 gm PO ONETIME ONE Stop: 04/20/18 22:58 Last Admin: 04/20/18 22:50 Dose: 15 gm Warfarin Sodium (Coumadin) 5 mg PO DAILY [facility] Warfarin Sodium (Coumadin) 2.5 mg PO ONETIME ONE Stop: 04/22/18 14:01 Last Admin: 04/22/18 13:39 Dose: 2.5 mg - Exam Quality Assessment: No: Supplemental Oxygen General: Alert, Oriented, Cooperative HEENT: Pupils Equal, Pupils Reactive, EOMI, Mucous Membr. Moist/[place] Neck: Supple, Trachea Midline Lungs: Clear to Auscultation, Normal Respiratory Effort Cardiovascular: Regular Rate, Irregular Rhythm. No: Murmurs GI/Abdominal Exam: Normal Bowel Sounds, Soft, No Distention (Male) Exam: Deferred Back Exam: Normal Inspection, Full Range of Motion Extremities: Normal Inspection, No Pedal Edema Skin: Warm, Dry, Intact Neurological: No New Focal Deficit. No: Normal Gait Psy/Mental Status: Alert, Normal Affect, Normal Mood - Problem List & Annotations (1) Atrial fibrillation SNOMED Code(s): 30395652 Code(s): I48.91 - UNSPECIFIED ATRIAL FIBRILLATION Status: Chronic Priority: Medium Current Visit: Yes Qualifiers: Atrial fibrillation type: chronic Qualified Code(s): I48.2 - Chronic atrial fibrillation (2) Self-care deficit in patient living alone SNOMED Code(s): 90418946 Code(s): R46.89 - OTHER SYMPTOMS AND SIGNS INVOLVING APPEARANCE AND BEHAVIOR Status: Chronic Priority: High Current Visit: Yes (3) Hyperkalemia SNOMED Code(s): 70916327 Code(s): E87.5 - HYPERKALEMIA Status: Resolved Priority: High Current Visit: Yes (4) Chronic kidney disease, stage 3 (moderate) SNOMED Code(s): 715303173 Code(s): N18.3 - CHRONIC KIDNEY DISEASE, STAGE 3 (MODERATE) Status: Chronic Priority: High Current Visit: Yes (5) Anemia SNOMED Code(s): 716529223 Code(s): D64.9 - ANEMIA, UNSPECIFIED Status: Acute Priority: High Current Visit: Yes Qualifiers: Anemia type: due to chronic kidney disease Chronic kidney disease stage: stage 3 (moderate) Qualified Code(s): N18.3 - Chronic kidney disease, stage 3 (moderate); D63.1 - Anemia in chronic kidney disease (6) Hematoma SNOMED Code(s): 240983989 Code(s): T14.8XXA - OTHER INJURY OF UNSPECIFIED BODY REGION, INITIAL ENCOUNTER Status: Acute Priority: High Current Visit: Yes - Problem List Review Problem List Initiated/Reviewed/Updated: Yes - My Orders Last 24 Hours: My Active Orders 04/22/18 10:00 Sodium Chloride 0.9% [Normal Saline] 500 ml IV .BOLUS - Plan Plan:: The patient is an 83-year-old gentleman who is doing somewhat better today. Discussion with the family had indicated a concern for his ability to care for himself. Because of this the patient is considered to be not safe for discharge.The patient's initial hyperkalemia had improved significantly and his renal impairment has improved somewhat. Patient's baseline is currently at 1.64 his creatinine and 37.3 for his EGFR. These may be the patient's baseline. Medication should be appropriately renally dose. The patient's INR is 1.76 and he'll be continued on his Coumadin until therapeutic. The patient will be restarted on Lovenox for DVT prophylaxis as the risk of bleeding has resolved. He has been encouraged to ambulate with assistance. The patient will be monitored very closely with laboratory studies with regards to his renal insufficiency and also his anemia. Patient will be considered for transfusion if his hemoglobin reaches 7.0 g/dL. The patient may need to be transferred to [facility] for assistance immediately his ADLs. The patient should be appropriate for transfer 1-2 days.
[2018-04-23] MEDS: Allopurinol 300 MG Tab PO SCH (09:46)
[2018-04-23] MEDS: atorvaSTATin 40 MG Tab PO SCH (09:46)
[2018-04-23] MEDS: amLODIPine 5 MG Tab PO SCH (09:46)
[2018-04-23] MEDS: Fluticasone Propionate Nasal Spray 16 GM Bottle NASBOTH SCH ×2 (09:47→20:34)
[2018-04-23] MEDS: Warfarin 5 MG Tab PO SCH (14:09)
[2018-04-24] MEDS: Sodium Chloride 0.9% 1,000 ML IV SCH (01:59)
[2018-04-24] MEDS: Metoprolol Tartrate 50 MG Tab PO SCH (05:44)
[2018-04-24] MEDS: atorvaSTATin 40 MG Tab PO SCH (09:56)
[2018-04-24] MEDS: amLODIPine 5 MG Tab PO SCH (09:56)
[2018-04-24] MEDS: Allopurinol 300 MG Tab PO SCH (09:56)
[2018-04-24] MEDS: Fluticasone Propionate Nasal Spray 16 GM Bottle NASBOTH SCH (09:57)
--- NOTE | 2018-04-24 14:12 | PCM.DCSUM1 ---
<Petar Hein Z - Last Filed: 04/24/18 14:54> Discharge Summary - Hospital Course HPI Initial Comments: Discharge Summary Date of admission: 04/20/18 Date of discharge: 04/24/18 Admitting diagnosis: #1. Ambulatory dysfunction secondary to left hip fall with hematoma #2. Hyperkalemia in the setting of chronic kidney disease #3. History of hypertension, atrial fibrillation on amlodipine, lisinopril for hypertension and metoprolol tartrate 50 mg twice a day and Coumadin 5 mg for atrial fibrillation and anticoagulation which currently is subtherapeutic #4. #5. Discharge diagnoses: #1. Ambulatory dysfunction secondary to left hip injury patient recommended to have outpatient physical therapy for strengthening and ambulation #2. Hypokalemia now resolved chronic kidney disease stable with improving acute creatinine #3. Hypertension #4. Atrial fibrillation on anticoagulation with therapeutic INR #5. Consultations: None Procedures: None Hospitalization course: Patient was admitted secondary to fall and injury to the patient's left hip with a hematoma. ER's assessment of the patient and initial evaluation once admitted to service did not show any indication for fracture of the left hip. Patient was given pain control medication for left hip pain and physical therapy was consulted and worked with the patient throughout his hospitalization. Patient was also noted to have a mild hyperkalemia which was treated with 1 amp of D50 and 10 units of insulin along with long-term treatment with Kayexalate which brought the patient's hyperkalemia under control. Patient was also noted to have a history of hypertension and atrial fibrillation patient was continued on his hypertensive medications along with his atrial fibrillation medications including Lopressor 50 mg twice a day as well as Coumadin 5 mg daily. Patient was noted to have a subtherapeutic INR however by the date of discharge the patient's INR was in therapeutic range at 2.19. Physical therapy worked with the patient throughout due to cemetery dysfunction and decreased strength due to his falls and injury to his left hip. Physical therapy recommended the patient be placed in [facility] for short-term stay for physical therapy and rehabilitation however patient was insistent on being discharged home despite the recommendations given to him by his care team as well as his family. Patient does have home health already consulted and will simply follow the patient once he is discharged home. Due to concerns made by the family as well as the fact that the patient declined the advice of inpatient rehabilitation at [facility] decision was made to be judicious as far as the patient's hypertension management was concerned. Patient shall continue with his amlodipine 5 mg and Lopressor 50 mg twice a day which I'll hold his lisinopril 5 mg, patient is asked to get laboratory blood pressures in the a.m. and p.m. for at least 2 weeks or up until he follows up with his primary care physician to ensure that the patient's blood pressures are not dipping which could further increase his chance of falling and possibly having long-term disability. These instructions were also given to the patient's family and the patient is to follow-up with his primary care physician in the next available appointment. Once discharge home health is to continue to follow the patient for physical therapy and outpatient management Disposition on discharge: Home with continuation of home health care Condition on discharge: Stable Discharge medications: Continuation of home medication with the instructions to hold lisinopril - Discharge Data Discharge Date: 04/24/18 Discharge Disposition: Home, Home Health Agency 06 Condition: Fair - Patient Summary/Data Consults: Consultations 04/20/18 17:17 OT Evaluation and Treatment [CONS] Routine PT Evaluation and Treatment [CONS] Routine - Discharge Plan Home Medications: Home Meds Allopurinol [Zyloprim] 300 mg PO DAILY 07/06/17 [History] Fexofenadine [Yohana] 60 mg PO BID PRN 07/06/17 [History] Fish Oil/[place]-3 Fatty Acids [Fish Oil 1,000 MG] 1 gm PO DAILY 07/06/17 [History ] Metoprolol Tartrate [Lopressor] 50 mg PO Q12H 07/06/17 [History] atorvaSTATin [Lipitor] 40 mg PO DAILY 07/06/17 [History] Fluticasone Propionate [Flonase] 1 spray NASBOTH BID #1 bottle 07/08/17 [Rx] Warfarin [Coumadin] 5 mg PO DAILY #30 tablet 07/08/17 [Rx] amLODIPine Besylate [Amlodipine Besylate] 5 mg PO DAILY 04/20/18 [History] Lisinopril 5 mg PO DAILY 04/24/18 [History] Patient Handouts: Hypotension, [id number], Hyperkalemia, [id number], Form - Blood Pressure Record Sheet Referrals: Annabelle Magdaleno MD [Primary Care Provider] - 05/09/18 8:00 am - Discharge Summary/Plan Comment DC Time >30 min.: No - Patient Data Vitals - Most Recent: Last Vital Signs Temp 35.9 C 04/24/18 12:00 Pulse 76 04/24/18 12:00 Resp 18 04/24/18 12:00 BP 100/60 04/24/18 12:00 Pulse Ox 95 04/24/18 12:00 Orthostatic Blood Pressure [ 112/60 Standing] Orthostatic Blood Pressure [ 121/59 Sitting] Orthostatic Blood Pressure [ 111/59 Supine] Weight - Most Recent: 74.843 kg I&O - Last 24 hours: Intake & Output 04/23/18 04/24/18 04/24/18 22:59 06:59 14:59 Intake Total 1553 920 Output Total 250 700 Balance 1303 220 Lab Results - Last 24 hrs: Laboratory Results - last 24 hr 04/24/18 04/24/18 04/24/18 Range/Units 05:49 05:49 05:49 WBC 7.72 (4.0-11.0) K/uL RBC 3.27 L (4.50-5.90) M/uL Hgb 9.9 L (13.0-17.0) g/dL Hct 30.5 L (38.0-50.0) % MCV 93.3 (80.0-98.0) fL MCH 30.3 (27.0-32.0) pg MCHC 32.5 (31.0-37.0) g/dL RDW Std Deviation 55.3 (28.0-62.0) fl RDW Coeff of Nolan 18 H (11.0-15.0) % Plt Count 268 (150-400) K/uL MPV 9.50 (7.40-12.00) fL Neut % (Auto) 55.3 (48.0-80.0) % Lymph % (Auto) 31.7 (16.0-40.0) % [place] % (Auto) 9.8 (0.0-15.0) % Eos % (Auto) 2.6 (0.0-7.0) % Baso % (Auto) 0.6 (0.0-1.5) % Neut # (Auto) 4.3 (1.4-5.7) K/uL Lymph # (Auto) 2.5 H (0.6-2.4) K/uL [place] # (Auto) 0.8 (0.0-0.8) K/uL Eos # (Auto) 0.2 (0.0-0.7) K/uL Baso # (Auto) 0.1 (0.0-0.1) K/uL Nucleated RBC % 0.3 /100WBC Nucleated RBCs # 0 K/uL INR 2.19 Sodium 140 (136-148) mmol/L Potassium 4.6 (3.5-5.1) mmol/L Chloride 108 H (98-107) mmol/L Carbon Dioxide 23.0 (21.0-32.0) mmol/L BUN 26 H (7.0-18.0) mg/dL Creatinine 1.5 H (0.8-1.3) mg/dL Est Cr Clr Drug Dosing 39.88 mL/min Estimated GFR (MDRD) 44.9 ml/min Glucose 91 (74-106) mg/dL Calcium 9.4 (8.5-10.1) mg/dL Med Orders - Current: Current Medications Acetaminophen (Tylenol) 650 mg PO Q4H PRN PRN Reason: Pain (Mild 1-3)/fever Last Admin: 04/21/18 11:26 Dose: 650 mg Allopurinol (Zyloprim) 300 mg PO DAILY [facility] Last Admin: 04/24/18 09:56 Dose: 300 mg Amlodipine Besylate (Norvasc) 5 mg PO DAILY [facility] Last Admin: 04/24/18 09:56 Dose: 5 mg Atorvastatin Calcium (Lipitor) 40 mg PO DAILY [facility] Last Admin: 04/24/18 09:56 Dose: 40 mg Docusate Sodium (Colace) 100 mg PO BID PRN PRN Reason: Constipation Fexofenadine HCl (Yohana) 60 mg PO BID PRN PRN Reason: Allergies Fluticasone Propionate (Flonase) 0 gm NASBOTH BID [facility] Last Admin: 04/24/18 09:57 Dose: 1 spray Sodium Chloride (Normal Saline) 1,000 mls @ 50 mls/hr IV ASDIRECTED [facility] Last Admin: 04/24/18 01:59 Dose: 50 mls/hr Sodium Chloride (Normal Saline) 500 mls @ 999 mls/hr IV .BOLUS [facility] Last Admin: 04/22/18 10:38 Dose: 999 mls/hr Metoprolol Tartrate (Lopressor) 50 mg PO Q12H [facility] Last Admin: 04/24/18 05:44 Dose: 50 mg Ondansetron HCl (Zofran Odt) 4 mg PO Q4H PRN PRN Reason: nausea, able to take PO Oxycodone HCl (Oxycodone) 5 mg PO Q4H PRN PRN Reason: Pain (moderate 4-6) Temazepam (Restoril) 15 mg PO BEDTIME PRN PRN Reason: Sleep Warfarin Sodium (Coumadin) 5 mg PO DAILY@1400 [facility] Last Admin: 04/23/18 14:09 Dose: 5 mg Discontinued Medications Dextrose/Water (Dextrose 50% In Water) 50 ml IVPUSH ONETIME ONE Stop: 04/20/18 17:27 Last Admin: 04/20/18 17:49 Dose: 50 ml Sodium Chloride (Normal Saline) 1,000 mls @ 999 mls/hr IV STAT ONE Stop: 04/20/18 16:40 Last Admin: 04/20/18 16:31 Dose: 999 mls/hr Influenza Virus Vaccine (Fluzone High-Dose Syringe) 180 mcg IM .ONCE ONE Stop: 04/20/18 17:18 Insulin Human Regular (Novolin R) 10 unit IVPUSH ONETIME ONE; Protocol Stop: 04/20/18 17:27 Last Admin: 04/20/18 17:52 Dose: 10 units Morphine Sulfate (Morphine) 2 mg IVPUSH ONETIME ONE Stop: 04/20/18 15:46 Last Admin: 04/20/18 17:21 Dose: Not Given Sodium Polystyrene Sulfonate (Kayexalate) 15 gm PO ONETIME ONE Stop: 04/20/18 17:28 Last Admin: 04/20/18 19:16 Dose: 15 gm Sodium Polystyrene Sulfonate (Kayexalate) 15 gm PO ONETIME ONE Stop: 04/20/18 22:58 Last Admin: 04/20/18 22:50 Dose: 15 gm Warfarin Sodium (Coumadin) 5 mg PO DAILY [facility] Warfarin Sodium (Coumadin) 2.5 mg PO ONETIME ONE Stop: 04/22/18 14:01 Last Admin: 04/22/18 13:39 Dose: 2.5 mg *Q Meaningful Use (DIS) - VTE *Q VTE Mechanical Contraindications *Q: At Risk for Falls VTE Pharmacological Contraindications *Q: Risk of Bleeding <Bandar Connell - Last Filed: 04/25/18 22:43> Discharge Summary - Patient Summary/Data Consults: Consultations 04/20/18 17:17 OT Evaluation and Treatment [CONS] Routine PT Evaluation and Treatment [CONS] Routine - Patient Data Vitals - Most Recent: Last Vital Signs Temp 35.9 C 04/24/18 12:00 Pulse 76 04/24/18 12:00 Resp 18 04/24/18 12:00 BP 100/60 04/24/18 12:00 Pulse Ox 95 04/24/18 12:00 Orthostatic Blood Pressure [ 112/60 Standing] Orthostatic Blood Pressure [ 121/59 Sitting] Orthostatic Blood Pressure [ 111/59 Supine] Med Orders - Current: Current Medications Discontinued Medications Acetaminophen (Tylenol) 650 mg PO Q4H PRN PRN Reason: Pain (Mild 1-3)/fever Last Admin: 04/21/18 11:26 Dose: 650 mg Allopurinol (Zyloprim) 300 mg PO DAILY [facility] Last Admin: 04/24/18 09:56 Dose: 300 mg Amlodipine Besylate (Norvasc) 5 mg PO DAILY [facility] Last Admin: 04/24/18 09:56 Dose: 5 mg Atorvastatin Calcium (Lipitor) 40 mg PO DAILY [facility] Last Admin: 04/24/18 09:56 Dose: 40 mg Dextrose/Water (Dextrose 50% In Water) 50 ml IVPUSH ONETIME ONE Stop: 04/20/18 17:27 Last Admin: 04/20/18 17:49 Dose: 50 ml Docusate Sodium (Colace) 100 mg PO BID PRN PRN Reason: Constipation Fexofenadine HCl (Yohana) 60 mg PO BID PRN PRN Reason: Allergies Fluticasone Propionate (Flonase) 0 gm NASBOTH BID [facility] Last Admin: 04/24/18 09:57 Dose: 1 spray Sodium Chloride (Normal Saline) 1,000 mls @ 999 mls/hr IV STAT ONE Stop: 04/20/18 16:40 Last Admin: 04/20/18 16:31 Dose: 999 mls/hr Sodium Chloride (Normal Saline) 1,000 mls @ 50 mls/hr IV ASDIRECTED [facility] Last Admin: 04/24/18 01:59 Dose: 50 mls/hr Sodium Chloride (Normal Saline) 500 mls @ 999 mls/hr IV .BOLUS [facility] Last Admin: 04/22/18 10:38 Dose: 999 mls/hr Influenza Virus Vaccine (Fluzone High-Dose Syringe) 180 mcg IM .ONCE ONE Stop: 04/20/18 17:18 Insulin Human Regular (Novolin R) 10 unit IVPUSH ONETIME ONE; Protocol Stop: 04/20/18 17:27 Last Admin: 04/20/18 17:52 Dose: 10 units Metoprolol Tartrate (Lopressor) 50 mg PO Q12H [facility] Last Admin: 04/24/18 05:44 Dose: 50 mg Morphine Sulfate (Morphine) 2 mg IVPUSH ONETIME ONE Stop: 04/20/18 15:46 Last Admin: 04/20/18 17:21 Dose: Not Given Ondansetron HCl (Zofran Odt) 4 mg PO Q4H PRN PRN Reason: nausea, able to take PO Oxycodone HCl (Oxycodone) 5 mg PO Q4H PRN PRN Reason: Pain (moderate 4-6) Sodium Polystyrene Sulfonate (Kayexalate) 15 gm PO ONETIME ONE Stop: 04/20/18 17:28 Last Admin: 04/20/18 19:16 Dose: 15 gm Sodium Polystyrene Sulfonate (Kayexalate) 15 gm PO ONETIME ONE Stop: 04/20/18 22:58 Last Admin: 04/20/18 22:50 Dose: 15 gm Temazepam (Restoril) 15 mg PO BEDTIME PRN PRN Reason: Sleep Warfarin Sodium (Coumadin) 5 mg PO DAILY [facility] Warfarin Sodium (Coumadin) 5 mg PO DAILY@1400 [facility] Last Admin: 04/24/18 14:47 Dose: 5 mg Warfarin Sodium (Coumadin) 2.5 mg PO ONETIME ONE Stop: 04/22/18 14:01 Last Admin: 04/22/18 13:39 Dose: 2.5 mg - Free Text/Narrative Note: I have seen and evaluated the patient. I have discussed findings and treatment plan with the resident. I agree with the assessment and plan outlined in the following note.
[2018-04-24] MEDS: Warfarin 5 MG Tab PO SCH (14:47)
== END 2018-04-24 16:35 | disposition home health service (06) | DRG 641 ==
LOC: MW.ED 15:17 → MW.MS 17:28
PROVIDERS: ADMIT Internal Medicine; ATTEND Internal Medicine
DX: E87.5 Hyperkalemia (principal); N17.9 Acute kidney failure, unspecified; I25.10 Atherosclerotic heart disease of native coronary artery without angina pectoris; D64.9 Anemia, unspecified; I12.9 Hypertensive chronic kidney disease with stage 1 through stage 4 chronic kidney disease, or unspecified chronic kidney disease; N18.3 Chronic kidney disease, stage 3 (moderate); N28.9 Disorder of kidney and ureter, unspecified; F17.210 Nicotine dependence, cigarettes, uncomplicated; I48.2 Chronic atrial fibrillation; I10 Essential (primary) hypertension; D63.1 Anemia in chronic kidney disease; I48.91 Unspecified atrial fibrillation; R79.1 Abnormal coagulation profile; I95.9 Hypotension, unspecified; S70.02XA Contusion of left hip, initial encounter; M25.552 Pain in left hip; R26.2 Difficulty in walking, not elsewhere classified; R42 Dizziness and giddiness; W18.30XA Fall on same level, unspecified, initial encounter; I45.10 Unspecified right bundle-branch block; J32.0 Chronic maxillary sinusitis; E78.00 Pure hypercholesterolemia, unspecified; I69.398 Other sequelae of cerebral infarction; Z79.899 Other long term (current) drug therapy; Z79.01 Long term (current) use of anticoagulants
CPT/HCPCS: 36415; 70450; 71045; 72192; 80053; 82550; 83735; 84484; 85025; 85610; 93005; 96361; 99285; J1815; J7040; 80048; 81003; 82962; 96374; 97110-GP; 97161-GP; 97165-GO; 97530-GP; A9270-GY; J7060